=== PATIENT | female | born 1985 | race Caucasian/White ===

== ENCOUNTER 2020-07-02 05:55 | Outpatient (CLI) | payer MEDICAID | END 2020-07-02 05:56 | disposition critical access hospital (66) | LOC: EMS 05:55 | PROVIDERS: ATTEND Surgery | DX: R06.02 Shortness of breath (principal) | CPT/HCPCS: A0425; A0427 ==

== ENCOUNTER 2020-07-02 06:14 | Inpatient (IN) | payer MEDICAID ==
[2020-07-02 06:51] LABS: BASOPHILS # (AUTO) 0.1 10^3/uL (0.0-0.1); BASOPHILS % (AUTO) 0.5 %; EOSINOPHILS # (AUTO) 0.3 10^3/uL (0.0-0.7); EOSINOPHILS % (AUTO) 1.5 %; HGB - HEMOGLOBIN 13.3 g/dL (12.0-16.0); LYMPHOCYTES # (AUTO) 1.9 10^3/uL (1.5-3.5); LYMPHOCYTES % (AUTO) 8.6 %; MEAN CORPUSCULAR HEMOGLOBIN 27.1 pg (27.0-31.0); MEAN CORPUSCULAR HGB CONC 32.1 g/dL (32.0-36.0); MEAN CORPUSCULAR VOLUME 84.3 fL (81.0-99.0); MEAN PLATELET VOLUME 9.3 fL (7.9-10.8); MONOCYTES # (AUTO) 1.9 10^3/uL (0.0-1.0); MONOCYTES % (AUTO) 8.8 %; NEUTROPHILS # (AUTO) 17.1 10^3/uL (1.5-6.6); NEUTROPHILS % (AUTO) 79.9 %; PLT - PLATELET COUNT 461 10^3/uL (130-450); RED BLOOD COUNT 4.91 10^6/uL (4.20-5.40); RED CELL DISTRIBUTION WIDTH 12.6 % (12.0-15.0); WHITE BLOOD COUNT 21.4 x10^3/uL (4.8-10.8)
[2020-07-02 07:06] LABS: ALBUMIN 3.4 g/dL (3.2-5.5); ALBUMIN/GLOBULIN RATIO 0.8 (1.0-2.2); BILIRUBIN,TOTAL 0.6 mg/dL (0.2-1.0); CALCIUM 9.3 mg/dL (8.5-10.3); CREATININE 0.5 mg/dL (0.4-1.0); TOTAL PROTEIN 7.5 g/dL (6.7-8.2)
[2020-07-02 07:26] LABS: DIFFERENTIAL COMMENT MANUAL=AUTO DIFF; PLATELET MORPHOLOGY NORMAL APPEARANCE (NORMAL); RBC MORPHOLOGY (MULTIPLE) NORMAL APPEARANCE (NORMAL)
[2020-07-02 07:27] LABS: PLATELET ESTIMATE, MANUAL INCREASED (>450,000) (NORMAL)
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
[2020-07-02] MEDS ORDERED: ONDANSETRON 4 MG/2 ML VIAL IVP PRN (08:03)
[2020-07-02] MEDS ORDERED: ALBUTEROL NEB 2.5 MG/3 ML INH PRN (08:09)
[2020-07-02] MEDS ORDERED: LACTATED RINGERS 1,700.97 ML IV STA (08:09)
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
[2020-07-02] MEDS ORDERED: ALBUTEROL 1 PUFF INH PRN (08:18)
[2020-07-02] MEDS ORDERED: CEFEPIME 2 GM in SODIUM CHLORIDE 0.9% MINIBAG 100 ML IV STA (08:18)
[2020-07-02] MEDS ORDERED: levoFLOXacin 750 MG/150 ML 750 MG/150 ML BAG IV STA (08:19)
--- NOTE | 2020-07-02 09:06 | XRAY Report ---
PROCEDURE: Chest 1 View X-Ray INDICATIONS: Chest pain TECHNIQUE: One view of the chest was acquired. COMPARISON: None. FINDINGS: Surgical changes and devices: None. Lungs and pleura: No acute consolidation however there are scattered patchy upper and lower lobe ill- defined and groundglass opacities. Mediastinum: Mediastinal contours appear normal. Heart size is n ormal. Bones and chest wall: No suspicious bony lesions. Overlying soft tissues appear unremarkable. IMPRESSION: Ill-defined diffuse upper and lower lobe mild groundglass patchy opacities. No focal consolidation. C annot entirely exclude a low-grade atypical/viral pneumonia versus very early pulmonary edema. This c ould reflect mild atelectasis. Please correlate clinically. If there is persistent clinical diagnosti c uncertainty, recommend short interval follow-up chest radiographs after treatment for further asses sment. Reviewed by: Luis Escudero MD on 07/02/2020 9:05 AM PDT Approved by: Luis Escudero MD on 07/02/2020 9:05 AM PDT Station ID: [id number]
[2020-07-02] MEDS ORDERED: VANCOMYCIN INJ 1 GM, VANCOMYCIN INJ 500 MG in SODIUM CHLORIDE 0.9% 500 ML IV ONE (10:00)
[2020-07-02] MEDS: ENOXAPARIN 40 MG/0.4 ML SYRINGE SUBQ SCH ×2 (10:15→10:26)
[2020-07-02] MEDS: CEFEPIME 2 GM in SODIUM CHLORIDE 0.9% MINIBAG 100 ML IV SCH ×2 (10:15→18:50)
[2020-07-02] MEDS: SODIUM CHLORIDE FLUSH 0.9% 10 ML SYRINGE IVP SCH ×4 (10:16→21:54)
--- NOTE | 2020-07-02 10:54 | PHARMACY PROGRESS NOTE ---
- Therapy Status Vancomycin regimen day #: 1 Therapy status: Awaiting steady state Basis for treatment: Empirical Treatment indication: SEPSIS, PNEUMONIA, CYSTIC FIBROSIS Trough goal: 15-20 Concurrent antibiotics: CEFEPIME, LEVOFLOXACIN - ARISTEO Risk Risk level for Acute Kidney Injury: Moderate Acute Kidney Injury risk factors: Goal trough >15, Sepsis - Monitoring and Recommendation Clinical response to treatment: I&O Previous 24 hours 06/30/20 07/01/20 07/02/20 23:59 23:59 23:59 Intake Total 1630.97 Balance 1630.97 Lab Results 07/02/20 06:46 BUN 9 Creatinine 0.5 Estimated GFR (MDRD) 141 Monitoring plan: Daily serum creatinine Next trough due prior to maintenance dose #: 4 Next trough due (date/time): 07/03 @ 1800 Areas for additional monitoring: IV to PO when appropriate, Therapy de- escalation based on culture results Pharmacy recommendation: Continue current regime
--- NOTE | 2020-07-02 10:55 | PHARMACY PROGRESS NOTE ---
- Best Possible Medication History Admit Date and Time: 07/02/20 0803 Processed by: Nursing Medication History completed: Yes Patient Interview: Pt interview ONLY source As the person ultimately responsible for medication therapy, providers are able to order a medication from an existing home medication list in [facility] via the "Reconcile Routine" prior to Confirmation of that medication by support manager. Such practice is discouraged except when the physician, in their clinical judgment, deems that a medical need exists for a medication without regard to previous use.
[2020-07-02] MEDS ORDERED: IPRATROPIUM/ALBUTEROL 3 ML NEB INH SCH (11:00)
[2020-07-02] MEDS ORDERED: CEFEPIME 2 GM in SODIUM CHLORIDE 0.9% MINIBAG 100 ML IV SCH (15:00)
[2020-07-02] MEDS ORDERED: SIMETHICONE 40 MG/0.6 ML 30 ML BOTTLE PO PRN (18:40)
[2020-07-02] MEDS: SIMETHICONE CHEW 80 MG TABLET PO PRN (20:11)
[2020-07-02] MEDS: VANCOMYCIN INJ 1 GM in SODIUM CHLORIDE 0.9% 250 ML IV SCH (20:11)
[2020-07-02] MEDS ORDERED: SODIUM CHLORIDE INHALATION 3 ML NEB ONE (22:21)
[2020-07-02] MEDS ORDERED: LEVALBUTEROL 1.25 MG/3 ML NEB INH ONE (22:21)
[2020-07-03] MEDS: CEFEPIME 2 GM in SODIUM CHLORIDE 0.9% MINIBAG 100 ML IV SCH ×3 (02:01→18:15)
[2020-07-03] MEDS: SODIUM CHLORIDE FLUSH 0.9% 10 ML SYRINGE IVP PRN ×2 (02:02→02:58)
[2020-07-03] MEDS: ACETAMINOPHEN 325 MG TABLET PO PRN ×2 (02:07→09:03)
[2020-07-03] MEDS: VANCOMYCIN INJ 1 GM in SODIUM CHLORIDE 0.9% 250 ML IV SCH ×3 (02:58→19:28)
[2020-07-03 05:40] LABS: BASOPHILS % (AUTO) 0.3 %; EOSINOPHILS % (AUTO) 1.2 %; HGB - HEMOGLOBIN 12.2 g/dL (12.0-16.0); MEAN CORPUSCULAR HEMOGLOBIN 27.2 pg (27.0-31.0); MEAN CORPUSCULAR HGB CONC 31.6 g/dL (32.0-36.0); MEAN CORPUSCULAR VOLUME 86.2 fL (81.0-99.0); MEAN PLATELET VOLUME 9.3 fL (7.9-10.8); MONOCYTES % (AUTO) 6.6 %; NEUTROPHILS % (AUTO) 82.9 %; PLT - PLATELET COUNT 348 10^3/uL (130-450); RED BLOOD COUNT 4.48 10^6/uL (4.20-5.40); RED CELL DISTRIBUTION WIDTH 12.5 % (12.0-15.0); WHITE BLOOD COUNT 24.2 x10^3/uL (4.8-10.8)
[2020-07-03 05:43] LABS: ABNORMAL LYMPHS % (MANUAL) 0 %; BAND NEUTROPHILS % (MANUAL) 0 %
[2020-07-03 05:53] LABS: CALCIUM 8.5 mg/dL (8.5-10.3); CREATININE 0.5 mg/dL (0.4-1.0); MAGNESIUM 1.8 mg/dL (1.7-2.8); PHOSPHORUS 4.1 mg/dL (2.5-4.6)
[2020-07-03 05:57] LABS: DIFFERENTIAL COMMENT MANUAL DIFFERENTIAL; EOSINOPHILS # (MANUAL) 0.2 10^3/uL (0-0.7); LYMPHOCYTES # (MANUAL) 3.1 10^3/uL (1.5-3.5); LYMPHOCYTES % (MANUAL) 13 %; PLATELET ESTIMATE, MANUAL NORMAL (130-450,000) (NORMAL); PLATELET MORPHOLOGY NORMAL APPEARANCE (NORMAL); RBC MORPHOLOGY (MULTIPLE) NORMAL APPEARANCE (NORMAL)
--- NOTE | 2020-07-03 07:36 | PROVIDER PROGRESS NOTE ---
Subjective - Prog Note Date Prog Note Date: 07/03/20 - Subjective Subjective: She reports still feeling quite short of breath. She does not feel worse or better compared to yesterday. She ambulates to the bathroom and felt completely exhausted and drained and was quite dyspneic. Continues to have a productive cough of yellow thick sputum. Current Medications - Current Medications Current Medications: Active Medications Acetaminophen (Tylenol) 650 mg PO Q4HR PRN PRN Reason: Pain 1 to 4 Last Admin: 07/03/20 09:03 Dose: 650 mg Documented by: Albuterol (Mdi: Albuterol) 2 puffs INH Q4HR PRN PRN Reason: Dyspnea Enoxaparin Sodium (Lovenox) 40 mg SUBQ DAILY [facility] Last Admin: 07/03/20 09:02 Dose: Not Given Documented by: Levofloxacin (Levaquin 750 Mg/150 Ml) 750 mg in 150 mls @ 100 mls/hr IV Q24H [facility] Cefepime HCl 2 gm/ Sodium (Chloride) 100 mls @ 200 mls/hr IV Q8H [facility] Last Infusion: 07/03/20 10:30 Dose: Infused Documented by: Vancomycin HCl 1 gm/ Sodium (Chloride) 250 mls @ 167 mls/hr IV Q8H [facility] Last Infusion: 07/03/20 04:28 Dose: Infused Documented by: Ondansetron HCl (Zofran Inj) 4 mg IVP Q6HR PRN PRN Reason: Nausea / Vomiting Simethicone (Mylicon) 80 mg PO Q6HR PRN PRN Reason: GAS Last Admin: 07/02/20 20:11 Dose: 80 mg Documented by: Sodium Chloride (Normal Saline Flush 0.9%) 10 ml IVP PRN PRN PRN Reason: NEEDED PER PROVIDER ORDERS Last Admin: 07/03/20 02:58 Dose: 10 ml Documented by: Sodium Chloride (Normal Saline Flush 0.9%) 10 ml IVP 0100,0900,1700 [facility] Last Admin: 07/02/20 21:54 Dose: 10 ml Documented by: No Known Home Medications 07/02/20 Objective - Vital Signs/Intake & Output Reviewed Vital Signs: Yes Vital Signs: Vital Signs x48h Temp Pulse Resp BP Pulse Ox 07/03/20 03:00 36.4 C L 114 H 20 111/72 95 07/03/20 00:35 36.7 C 126 H 22 134/68 H 93 Intake & Output: Intake & Output 06/30/20 07/01/20 07/02/20 07/03/20 23:59 23:59 23:59 23:59 Intake Total 4240.97 350 Balance 4240.97 350 - Objective General Appearance: positive: No acute distress, Alert Eyes Bilateral: positive: Normal inspection, Conjunctivae nml ENT: positive: ENT inspection nml, Other (Nasal cannula in place.) Neck: positive: Nml inspection Respiratory: positive: No respiratory distress, Other (She does not appear to be in distress but she still is slightly tachypneic but this appears improved. Her lung sounds are actually quite relatively clear.). negative: Wheezes, Rales Cardiovascular: positive: Tachycardia. negative: Irregularly irregular, Bradycardia, Systolic murmur Abdomen: positive: Non-tender, No distention. negative: Tenderness, Guarding, Rebound Skin: positive: Warm, Dry Extremities: positive: Full ROM, No pedal edema Neurologic/Psychiatric: positive: Oriented x3, Motor nml. negative: Disoriented to person, Disoriented to place, Disoriented to time - Lab Results Fish Bones: 07/03/20 05:37 07/03/20 05:37 Other Labs: Lab Results x24hrs 07/03/20 07/03/20 07/02/20 Range/Units 05:37 05:37 11:28 WBC 24.2 H (4.8-10.8) x10^3/uL RBC 4.48 (4.20-5.40) 10^6/uL Hgb 12.2 (12.0-16.0) g/dL Hct 38.6 (37.0-47.0) % MCV 86.2 (81.0-99.0) fL MCH 27.2 (27.0-31.0) pg MCHC 31.6 L (32.0-36.0) g/dL RDW 12.5 (12.0-15.0) % Plt Count 348 (130-450) 10^3/uL MPV 9.3 (7.9-10.8) fL Neut # (Auto) Not Reportable Lymph # (Auto) Not Reportable Scurry # (Auto) Not Reportable Eos # (Auto) Not Reportable Baso # (Auto) Not Reportable Absolute Nucleated RBC Not Reportable Total Counted 100 Band Neuts % (Manual) 0 (0 - 10) % Abnorm Lymph % (Manual) 0 % Nucleated RBC % Not Reportable Neutrophils # (Manual) 19.8 H (1.5-6.6) 10^3/uL Lymphocytes # (Manual) 3.1 (1.5-3.5) 10^3/uL Monocytes # (Manual) 1.0 (0.0-1.0) 10^3/uL Eosinophils # (Manual) 0.2 (0-0.7) 10^3/uL Basophils # (Manual) 0.0 (0-0.1) 10^3/uL Differential Comment MANUAL DIFFERENTIAL WBC Morphology NORMAL APPEARANCE (NORMAL) Platelet Estimate NORMAL (130-450,000) (NORMAL) Platelet Morphology NORMAL APPEARANCE (NORMAL) RBC Morph Micro Appear NORMAL APPEARANCE (NORMAL) Sodium 140 (135-145) mmol/L Potassium 3.9 (3.5-5.0) mmol/L Chloride 104 (101-111) mmol/L Carbon Dioxide 27 (21-32) mmol/L Anion Gap 9.0 (6-13) BUN 8 (6-20) mg/dL Creatinine 0.5 (0.4-1.0) mg/dL Estimated GFR (MDRD) 141 (>89) Glucose 96 (70-100) mg/dL Lactic Acid (0.5-2.2) mmol/L Calcium 8.5 (8.5-10.3) mg/dL Phosphorus 4.1 (2.5-4.6) mg/dL Magnesium 1.8 (1.7-2.8) mg/dL Influenza A (Rapid) Negative (Negative) Influenza B (Rapid) Negative (Negative) 07/02/20 Range/Units 07:33 WBC (4.8-10.8) x10^3/uL RBC (4.20-5.40) 10^6/uL Hgb (12.0-16.0) g/dL Hct (37.0-47.0) % MCV (81.0-99.0) fL MCH (27.0-31.0) pg MCHC (32.0-36.0) g/dL RDW (12.0-15.0) % Plt Count (130-450) 10^3/uL MPV (7.9-10.8) fL Neut # (Auto) Lymph # (Auto) Scurry # (Auto) Eos # (Auto) Baso # (Auto) Absolute Nucleated RBC Total Counted Band Neuts % (Manual) (0 - 10) % Abnorm Lymph % (Manual) % Nucleated RBC % Neutrophils # (Manual) (1.5-6.6) 10^3/uL Lymphocytes # (Manual) (1.5-3.5) 10^3/uL Monocytes # (Manual) (0.0-1.0) 10^3/uL Eosinophils # (Manual) (0-0.7) 10^3/uL Basophils # (Manual) (0-0.1) 10^3/uL Differential Comment WBC Morphology (NORMAL) Platelet Estimate (NORMAL) Platelet Morphology (NORMAL) RBC Morph Micro Appear (NORMAL) Sodium (135-145) mmol/L Potassium (3.5-5.0) mmol/L Chloride (101-111) mmol/L Carbon Dioxide (21-32) mmol/L Anion Gap (6-13) BUN (6-20) mg/dL Creatinine (0.4-1.0) mg/dL Estimated GFR (MDRD) (>89) Glucose (70-100) mg/dL Lactic Acid 1.0 (0.5-2.2) mmol/L Calcium (8.5-10.3) mg/dL Phosphorus (2.5-4.6) mg/dL Magnesium (1.7-2.8) mg/dL Influenza A (Rapid) (Negative) Influenza B (Rapid) (Negative) ABX Reporting Has patient been on IV antibiotics over the past 48 hours?: Yes Sepsis Event Note (H) - Evaluation Current Stage of Sepsis: Sepsis Possible source of Sepsis: positive: Pulmonary - Sepsis Criteria Sepsis Criteria: Recorded Heart Rate greater than 90 bpm, Recorded Respiratory Rate greater than 20, Respiratory: Increasing oxygen requirements, WBC count greater than 12,000 or less than 4000 Assessment/Plan - Problem List (1) Sepsis Impression: This is secondary to community-acquired pneumonia. Her white count has increased today but she remains afebrile. She still remains tachycardic. Blood cultures have been negative to date. We will continue broad-spectrum antibiotics with Levaquin, cefepime, vancomycin given the pneumonia and history of cystic fibrosis. We will continue to monitor for other signs of infection. Continue to trend her white count and monitor for fevers. (2) Community acquired pneumonia Impression: Chest x-ray is concerning for bilateral infiltrates on admission. She does have an elevated white count and change in her sputum consistent with pneumonia. She remains hypoxic requiring 1 L of oxygen. Preliminary respiratory culture is growing many gram-positive cocci in clusters, moderate gram-positive cocci in pairs and chains and many gram-negative bacilli. And her history of cystic fibrosis and the fact that her white count increased today, we will keep her on vancomycin, cefepime, Levaquin. We will follow-up respiratory cultures. Continue to trend her white count. If she does not improve by tomorrow, we will likely need to discuss with pulmonology regarding further recommendations. Influenza is negative but COVID is still pending. We will obtain a CT angiogram today for further evaluation to rule out pulmonary embolism as well as to get a better visualization of the bilateral infiltrates. Qualifiers: Laterality: unspecified laterality Qualified Code(s): J18.9 - Pneumonia, unspecified organism (3) Cystic fibrosis Impression: She has a lifelong history of ICD code E84.9, cystic fibrosis. I am ordering home percussion vest (HFCWO) airway clearance device to help separate mucus from the airway cole in the lungs, help to get move up and out. Continue management of the pneumonia as mentioned above.
[2020-07-03] MEDS: ENOXAPARIN 40 MG/0.4 ML SYRINGE SUBQ SCH (09:02)
[2020-07-03] MEDS ORDERED: IOVERSOL 320 100 ML VIAL IVP ONE ×2 (09:41→13:10)
[2020-07-03] MEDS: levoFLOXacin 750 MG/150 ML 750 MG/150 ML BAG IV SCH (11:05)
--- NOTE | 2020-07-03 11:38 | CT Report ---
PROCEDURE: ANGIO CHEST W/WO INDICATIONS: Hypoxia, Dyspnea. Pneumonia. Cystic Fibrosis. CONTRAST: IV CONTRAST: Optiray 320 ml: 100 PO CONTRAST: *NO PO CONTRAST TECHNIQUE: After the administration of intravenous contrast, 2 mm thick sections acquired from the pulmonary api nova to the posterior costophrenic angles. 3-dimensional maximum intensity projection (MIP) coronal a nd sagittal reformats were then acquired through the thorax. For radiation dose reduction, the follow ing was used: automated exposure control, adjustment of mA and/or kV according to patient size. COMPARISON: FINDINGS: Image quality: Excellent. Pulmonary arteries: Pulmonary arteries are normal in size, and demonstrate no intraluminal filling d efects to suggest central pulmonary embolism. Lungs and pleura: Lungs are abnormal with peribronchial soft tissue prominence greater over the uppe r lung and no effusion.. No pneumothorax. Central and peripheral airways are patent. Mediastinum: Heart size is normal, without pericardial effusion. No significantly enlarged mediasti nal or hilar adenopathy but there is an increase of small nodes in the peribronchial central hilar re gions bilaterally, likely reactive. Thoracic aorta is normal in caliber and enhancement. Esophagus is normal in caliber, without hiatal hernia. Bones and chest wall: No suspicious bony lesions. Ribs and thoracic spine appear intact throughout. The thyroid is normal. No axillary or supraclavicular adenopathy. Abdomen: Visualized upper abdominal solid organs appear normal in the early arterial phase of enhanc ement. IMPRESSION: No pulmonary embolus is found. Relatively prominent peribronchial soft tissue thickening greater over the upper than the lower lungs, in an appearance consistent with underlying cystic fibrosis as was c linically stated. There is only a minimal degree of patchy alveolar infiltration at the lung bases, l ikely sequela of prior inflammatory events by appearance. No cavitary lung disease is found. A small degree of active pneumonitis may be present superimposed over the lower lung at this time. Reviewed by: Bruce Franco MD on 07/03/2020 11:37 AM PDT Approved by: Bruce Franco MD on 07/03/2020 11:37 AM PDT Station ID: [id number]
[2020-07-03 12:44] LABS: HCG UR QUAL NEGATIVE
[2020-07-03] MEDS: LACTOBACILLUS RHAMNOSUS GG CAPSULE PO SCH (13:01)
[2020-07-03] MEDS: MULTIVITAMIN W/MINERALS TABLET PO SCH (13:01)
[2020-07-03] MEDS: SODIUM CHLORIDE FLUSH 0.9% 10 ML SYRINGE IVP SCH (18:16)
[2020-07-03 18:32] LABS: VANCOMYCIN,TROUGH 16.3 ug/mL (10.0-20.0)
[2020-07-03] MEDS: ALBUTEROL NEB 2.5 MG/3 ML INH PRN (19:30)
[2020-07-04] MEDS: ACETAMINOPHEN 325 MG TABLET PO PRN (01:12)
[2020-07-04] MEDS: SIMETHICONE CHEW 80 MG TABLET PO PRN ×2 (01:12→09:01)
[2020-07-04] MEDS: SODIUM CHLORIDE FLUSH 0.9% 10 ML SYRINGE IVP SCH ×3 (01:13→19:17)
[2020-07-04] MEDS: CEFEPIME 2 GM in SODIUM CHLORIDE 0.9% MINIBAG 100 ML IV SCH ×2 (01:14→09:03)
[2020-07-04] MEDS: VANCOMYCIN INJ 1 GM in SODIUM CHLORIDE 0.9% 250 ML IV SCH ×3 (03:30→19:10)
[2020-07-04 05:11] LABS: BASOPHILS # (AUTO) 0.1 10^3/uL (0.0-0.1); BASOPHILS % (AUTO) 0.2 %; EOSINOPHILS # (AUTO) 0.7 10^3/uL (0.0-0.7); EOSINOPHILS % (AUTO) 2.6 %; HGB - HEMOGLOBIN 11.2 g/dL (12.0-16.0); LYMPHOCYTES # (AUTO) 2.2 10^3/uL (1.5-3.5); LYMPHOCYTES % (AUTO) 8.6 %; MEAN CORPUSCULAR HEMOGLOBIN 26.6 pg (27.0-31.0); MEAN CORPUSCULAR HGB CONC 30.9 g/dL (32.0-36.0); MEAN PLATELET VOLUME 9.5 fL (7.9-10.8); MONOCYTES % (AUTO) 7.8 %; NEUTROPHILS # (AUTO) 20.5 10^3/uL (1.5-6.6); NEUTROPHILS % (AUTO) 79.8 %; PLT - PLATELET COUNT 364 10^3/uL (130-450); RED BLOOD COUNT 4.21 10^6/uL (4.20-5.40); RED CELL DISTRIBUTION WIDTH 12.6 % (12.0-15.0); WHITE BLOOD COUNT 25.7 x10^3/uL (4.8-10.8)
[2020-07-04 05:28] LABS: CALCIUM 8.6 mg/dL (8.5-10.3); CREATININE 0.5 mg/dL (0.4-1.0); MAGNESIUM 2.1 mg/dL (1.7-2.8); PHOSPHORUS 4.1 mg/dL (2.5-4.6)
[2020-07-04 05:39] LABS: PLATELET ESTIMATE, MANUAL NORMAL (130-450,000) (NORMAL); PLATELET MORPHOLOGY NORMAL APPEARANCE (NORMAL); RBC MORPHOLOGY (MULTIPLE) NORMAL APPEARANCE (NORMAL)
[2020-07-04] MEDS ORDERED: PHENOL THROAT SPRAY 177 ML MM PRN (08:59)
[2020-07-04] MEDS: ENOXAPARIN 40 MG/0.4 ML SYRINGE SUBQ SCH (09:00)
[2020-07-04] MEDS: LACTOBACILLUS RHAMNOSUS GG CAPSULE PO SCH (09:01)
[2020-07-04] MEDS: MULTIVITAMIN W/MINERALS TABLET PO SCH (09:01)
[2020-07-04] MEDS: levoFLOXacin 750 MG/150 ML 750 MG/150 ML BAG IV SCH (10:13)
[2020-07-04] MEDS: BENZOCAINE/MENTHOL LOZENGE MM PRN ×2 (10:54→15:05)
--- NOTE | 2020-07-04 12:40 | PHARMACY PROGRESS NOTE ---
- Therapy Status Vancomycin regimen day #: 3 Therapy status: Trough therapeutic Basis for treatment: Empirical (MSSA VS MRSA) Treatment indication: PNEUMONIA ON CYSTIC FIBROSIS Trough goal: 15-20 Concurrent antibiotics: MEROPENEM 2G Q8H - ARISTEO Risk Risk level for Acute Kidney Injury: Moderate Acute Kidney Injury risk factors: Goal trough >15, Sepsis - Monitoring and Recommendation Clinical response to treatment: I&O Previous 24 hours 07/02/20 07/03/20 07/04/20 23:59 23:59 23:59 Intake Total 4240.97 2330 1620 Balance 4240.97 2330 1620 Lab Results 07/04/20 07/03/20 07/02/20 04:45 05:37 06:46 BUN 7 8 9 Creatinine 0.5 0.5 0.5 Estimated GFR (MDRD) 141 141 141 Vancomycin Monitoring 07/03/20 18:18 Vancomycin Trough 16.3 Cultures 07/02/20 08:55 Sputum Respiratory Culture - Preliminary Pseudomonas Aeruginosa Staphylococcus Aureus 07/02/20 09:04 Blood - Left Hand Blood Culture - Preliminary NO GROWTH AFTER 2 DAYS 07/02/20 07:33 Blood Blood Culture - Preliminary NO GROWTH AFTER 2 DAYS Monitoring plan: Daily serum creatinine Next trough due prior to maintenance dose #: 0 (DRAW TROUGH IN 5 TO 7 DAYS BASED ON PT'S CLINICAL PICTURE) Areas for additional monitoring: IV to PO when appropriate, Therapy de- escalation based on culture results Pharmacy recommendation: Continue current regime
[2020-07-04] MEDS: SODIUM CHLORIDE FLUSH 0.9% 10 ML SYRINGE IVP PRN (13:14)
[2020-07-04] MEDS: MEROPENEM 2 GM in SODIUM CHLORIDE 0.9% 100ML 100 ML IV SCH ×2 (13:29→21:26)
--- NOTE | 2020-07-04 13:33 | PROVIDER PROGRESS NOTE ---
Assessment/Plan - Problem List (1) Sepsis Assessment/Plan: She remains septic with abnormal vital signs (oxygen desaturation) and elevated WBC and infection present. The WBC is still rising. The sputum culture is growing Pseudomonas (with sensitivities available today) and also growing Staph (with sensitivities pending). Will tailor the antibiotics: will change Cefepime and Levaquin to Imipenam (will use Merepenam in its place, until discharge) for the Pseudomonas. Will reach out to [facility] at , which is where she used to be seen for CF, regarding any other recommendations. (2) Community acquired pneumonia Qualifiers: Laterality: unspecified laterality Qualified Code(s): J18.9 - Pneumonia, unspecified organism Assessment/Plan: Pseudomonas and Staph growing in sputum culture. WBC is still climbing, and no systemic steroids have been used. The CT chest showed minimal infiltrate, but she has alot of sputum and needing supplemental O2. She has a hoarse voice from coughing, getting thrioat spray and lozenges. Will add Robitussin DM. (3) Cystic fibrosis Assessment/Plan: Albuterol ordered. Will add Robitussin DM. Will reach out to [facility] at , which is where she used to be seen for CF, regarding any other recommendations. - Current Meds Current Meds: Current Medications Generic Name Dose Route Start Last Admin Trade Name Freq PRN Reason Stop Dose Admin Acetaminophen 650 mg 07/02/20 08:03 07/04/20 01:12 Tylenol PO 650 mg Q4HR PRN Administration Pain 1 to 4 Enoxaparin Sodium 40 mg 07/02/20 09:00 07/04/20 09:00 Lovenox SUBQ Not Given DAILY [facility] Vancomycin HCl 1 gm/ Sodium 250 mls @ 167 mls/hr 07/02/20 19:00 07/04/20 10:54 Chloride IV Infused Q8H [facility] Infusion Lactobacillus Rhamnosus 1 cap 07/03/20 12:00 07/04/20 09:01 Culturelle PO 1 cap DAILY [facility] Administration Multivitamins/Minerals 1 tab 07/03/20 12:00 07/04/20 09:01 Theragran M PO 1 tab DAILYWM [facility] Administration Phenol/Menthol 2 sprays 07/04/20 08:59 07/04/20 10:54 Chloraseptic MM 2 sprays Q2HR PRN Administration Throat Pain Simethicone 80 mg 07/02/20 20:00 07/04/20 09:01 Mylicon PO 80 mg Q6HR PRN Administration GAS Sodium Chloride 10 ml 07/02/20 08:03 07/03/20 02:58 Normal Saline Flush 0.9% IVP 10 ml PRN PRN Administration NEEDED PER PROVIDER ORDERS Sodium Chloride 10 ml 07/02/20 09:00 07/04/20 09:10 Normal Saline Flush 0.9% IVP 10 ml 0100,0900,1700 [facility] Administration Throat Lozenges 1 lozenge 07/04/20 08:59 07/04/20 10:54 Cepacol MM 1 lozenge Q2HR PRN Administration Throat pain - Lab Result Fish Bone Diagrams: 07/04/20 04:45 07/04/20 04:45 - Additional Planning My Orders: My Active Orders 07/04/20 13:00 Meropenem [Merrem] 2 gm Sodium Chloride 0.9% 100Ml [Normal Saline 0.9% 100Ml] 100 ml IV Q8H Subjective - Subjective Patient Reports: Feeling Better (She reports still feeling short of breath, but finally better compared to yesterday. She ambulates to the bathroom and felt completely exhausted and drained and was quite dyspneic, today she has a bedside commode. Still has a productive cough of yellow thick sputum.) Objective Vital Signs: Vital Signs - 24 hr 07/03/20 07/03/20 07/03/20 15:45 19:30 19:45 Temperature 36.7 C Heart Rate 126 H Heart Rate [ 112 H Monitoring electrodes] Respiratory 24 30 H Rate Blood Pressure 117/72 [Right Brachial artery] O2 Saturation 95 95 07/03/20 07/04/20 07/04/20 20:44 00:02 05:29 Temperature 37.2 C 37.1 C 36.7 C Heart Rate Heart Rate [ 138 H 122 H 97 Monitoring electrodes] Respiratory 20 20 20 Rate Blood Pressure 107/65 117/71 113/74 [Right Brachial artery] O2 Saturation 94 95 97 07/04/20 07/04/20 08:00 12:00 Temperature 36.7 C 36.9 C Heart Rate Heart Rate [ 113 H 122 H Monitoring electrodes] Respiratory 20 22 Rate Blood Pressure 97/66 118/60 [Right Brachial artery] O2 Saturation 94 95 Oxygen O2 Source Nasal cannula Oxygen Flow Rate 2 I&O (Last 24 Hrs): Intake and Output Totals x24h 07/02/20 07/03/20 07/04/20 23:59 23:59 23:59 Intake Total 4240.97 2330 1620 Balance 4240.97 2330 1620 General: Alert, Oriented x3 HEENT: Mucous membr. moist/pink, Other (Voice is hoarse and nasal) Neck: Supple Neuro: Alert, Non Focal Cardiovascular: Regular rate, No murmurs Respiratory: No respiratory distress, Rhonchi (upper lung akins, bilaterally) Abdomen: Soft Extremities: No edema - Results Results: Laboratory Results WBC 25.7 x10^3/uL (4.8-10.8) H 07/04/20 04:45 RBC 4.21 10^6/uL (4.20-5.40) 07/04/20 04:45 Hgb 11.2 g/dL (12.0-16.0) L 07/04/20 04:45 Hct 36.2 % (37.0-47.0) L 07/04/20 04:45 MCV 86.0 fL (81.0-99.0) 07/04/20 04:45 MCH 26.6 pg (27.0-31.0) L 07/04/20 04:45 MCHC 30.9 g/dL (32.0-36.0) L 07/04/20 04:45 RDW 12.6 % (12.0-15.0) 07/04/20 04:45 Plt Count 364 10^3/uL (130-450) 07/04/20 04:45 MPV 9.5 fL (7.9-10.8) 07/04/20 04:45 Neut # (Auto) 20.5 10^3/uL (1.5-6.6) H 07/04/20 04:45 Lymph # (Auto) 2.2 10^3/uL (1.5-3.5) 07/04/20 04:45 Waldo # (Auto) 2.0 10^3/uL (0.0-1.0) H 07/04/20 04:45 Eos # (Auto) 0.7 10^3/uL (0.0-0.7) 07/04/20 04:45 Baso # (Auto) 0.1 10^3/uL (0.0-0.1) 07/04/20 04:45 Absolute Nucleated RBC 0.00 x10^3/uL 07/04/20 04:45 Total Counted 100 07/03/20 05:37 Band Neuts % (Manual) 0 % (0-10) 07/03/20 05:37 Abnorm Lymph % (Manual) 0 % 07/03/20 05:37 Nucleated RBC % 0.0 /100WBC 07/04/20 04:45 Neutrophils # (Manual) 19.8 10^3/uL (1.5-6.6) H 07/03/20 05:37 Lymphocytes # (Manual) 3.1 10^3/uL (1.5-3.5) 07/03/20 05:37 Monocytes # (Manual) 1.0 10^3/uL (0.0-1.0) 07/03/20 05:37 Eosinophils # (Manual) 0.2 10^3/uL (0-0.7) 07/03/20 05:37 Basophils # (Manual) 0.0 10^3/uL (0-0.1) 07/03/20 05:37 Differential Comment MANUAL DIFFERENTIAL 07/03/20 05:37 Manual Slide Review Indicated 07/04/20 04:45 WBC Morphology NORMAL APPEARANCE (NORMAL) 07/03/20 05:37 Platelet Estimate NORMAL (130-450,000) (NORMAL) 07/04/20 04:45 Platelet Morphology NORMAL APPEARANCE (NORMAL) 07/04/20 04:45 RBC Morph Micro Appear NORMAL APPEARANCE (NORMAL) 07/04/20 04:45 Sodium 140 mmol/L (135-145) 07/04/20 04:45 Potassium 4.0 mmol/L (3.5-5.0) 07/04/20 04:45 Chloride 103 mmol/L (101-111) 07/04/20 04:45 Carbon Dioxide 28 mmol/L (21-32) 07/04/20 04:45 Anion Gap 9.0 (6-13) 07/04/20 04:45 BUN 7 mg/dL (6-20) 07/04/20 04:45 Creatinine 0.5 mg/dL (0.4-1.0) 07/04/20 04:45 Estimated GFR (MDRD) 141 (>89) 07/04/20 04:45 Glucose 109 mg/dL (70-100) H 07/04/20 04:45 Lactic Acid 1.0 mmol/L (0.5-2.2) 07/02/20 07:33 Calcium 8.6 mg/dL (8.5-10.3) 07/04/20 04:45 Phosphorus 4.1 mg/dL (2.5-4.6) 07/04/20 04:45 Magnesium 2.1 mg/dL (1.7-2.8) 07/04/20 04:45 Total Bilirubin 0.6 mg/dL (0.2-1.0) 07/02/20 06:46 AST 15 IU/L (10-42) 07/02/20 06:46 ALT 21 IU/L (10-60) 07/02/20 06:46 Alkaline Phosphatase 99 IU/L (42-121) 07/02/20 06:46 Total Protein 7.5 g/dL (6.7-8.2) 07/02/20 06:46 Albumin 3.4 g/dL (3.2-5.5) 07/02/20 06:46 Globulin 4.1 g/dL (2.1-4.2) 07/02/20 06:46 Albumin/Globulin Ratio 0.8 (1.0-2.2) L 07/02/20 06:46 Lipase 15 U/L (22-51) L 07/02/20 06:46 Ur Specific [place] 1.010 (1.002-1.030) 07/03/20 10:00 Urine HCG, Qual NEGATIVE 07/03/20 10:00 Last Dose Date 07/03/20 07/03/20 18:18 Last Dose Time 1258 07/03/20 18:18 Vancomycin Trough 16.3 ug/mL (10.0-20.0) 07/03/20 18:18 Coronavirus (PCR) NEGATIVE 07/02/20 09:05 Influenza A (Rapid) Negative (Negative) 07/02/20 11:28 Influenza B (Rapid) Negative (Negative) 07/02/20 11:28 Sepsis Event Note (H) - Evaluation Current Stage of Sepsis: Sepsis Possible source of Sepsis: positive: Pulmonary - Sepsis Criteria Sepsis Criteria: Recorded Heart Rate greater than 90 bpm, Recorded Respiratory Rate greater than 20, Respiratory: Increasing oxygen requirements, WBC count greater than 12,000 or less than 4000
[2020-07-04] MEDS ORDERED: guaiFENesin/DEXTROMETHORPHAN 10 ML UDC PO PRN (13:34)
[2020-07-04] MEDS: ALBUTEROL NEB 2.5 MG/3 ML INH PRN ×2 (14:37→19:50)
[2020-07-05] MEDS: VANCOMYCIN INJ 1 GM in SODIUM CHLORIDE 0.9% 250 ML IV SCH ×3 (02:34→19:45)
[2020-07-05] MEDS: BENZOCAINE/MENTHOL LOZENGE MM PRN ×2 (02:42→11:49)
[2020-07-05] MEDS: ALBUTEROL NEB 2.5 MG/3 ML INH PRN ×5 (02:42→22:41)
[2020-07-05] MEDS: ACETAMINOPHEN 325 MG TABLET PO PRN ×2 (02:50→21:22)
[2020-07-05] MEDS: SODIUM CHLORIDE FLUSH 0.9% 10 ML SYRINGE IVP SCH ×3 (02:54→11:50)
[2020-07-05] MEDS: MEROPENEM 2 GM in SODIUM CHLORIDE 0.9% 100ML 100 ML IV SCH ×3 (04:26→21:24)
[2020-07-05 05:38] LABS: BASOPHILS # (AUTO) 0.1 10^3/uL (0.0-0.1); BASOPHILS % (AUTO) 0.6 %; EOSINOPHILS # (AUTO) 0.6 10^3/uL (0.0-0.7); EOSINOPHILS % (AUTO) 2.8 %; HGB - HEMOGLOBIN 10.7 g/dL (12.0-16.0); LYMPHOCYTES # (AUTO) 1.8 10^3/uL (1.5-3.5); LYMPHOCYTES % (AUTO) 8.3 %; MEAN CORPUSCULAR HEMOGLOBIN 26.3 pg (27.0-31.0); MEAN CORPUSCULAR HGB CONC 30.5 g/dL (32.0-36.0); MEAN CORPUSCULAR VOLUME 86.2 fL (81.0-99.0); MEAN PLATELET VOLUME 9.6 fL (7.9-10.8); MONOCYTES # (AUTO) 1.7 10^3/uL (0.0-1.0); MONOCYTES % (AUTO) 7.8 %; NEUTROPHILS # (AUTO) 17.3 10^3/uL (1.5-6.6); NEUTROPHILS % (AUTO) 79.5 %; PLT - PLATELET COUNT 357 10^3/uL (130-450); RED BLOOD COUNT 4.07 10^6/uL (4.20-5.40); RED CELL DISTRIBUTION WIDTH 12.6 % (12.0-15.0); WHITE BLOOD COUNT 21.8 x10^3/uL (4.8-10.8)
[2020-07-05 05:50] LABS: CALCIUM 8.2 mg/dL (8.5-10.3); CREATININE 0.5 mg/dL (0.4-1.0); MAGNESIUM 1.9 mg/dL (1.7-2.8); PHOSPHORUS 3.2 mg/dL (2.5-4.6)
[2020-07-05 06:13] LABS: DIFFERENTIAL COMMENT MANUAL=AUTO DIFF; PLATELET ESTIMATE, MANUAL NORMAL (130-450,000) (NORMAL); RBC MORPHOLOGY (MULTIPLE) NORMAL APPEARANCE (NORMAL)
[2020-07-05] MEDS: LACTOBACILLUS RHAMNOSUS GG CAPSULE PO SCH (08:52)
[2020-07-05] MEDS: MULTIVITAMIN W/MINERALS TABLET PO SCH (08:52)
[2020-07-05] MEDS: ENOXAPARIN 40 MG/0.4 ML SYRINGE SUBQ SCH (10:01)
[2020-07-05] MEDS: LIPASE/PROTEASE/AMYLASE CAPSULE PO SCH ×2 (12:14→17:05)
--- NOTE | 2020-07-05 12:54 | PROVIDER PROGRESS NOTE ---
Assessment/Plan - Problem List (1) Sepsis Assessment/Plan: She is still desaturating, producing sputum. White blood count is still elevated greater than 20 but has decreased from 26 yesterday to 21 today. Blood cultures are negative to date. Sputum cx positive, 2 organisms Continue management of the underlying infection and supportive care with IV hydration. (2) Community acquired pneumonia Qualifiers: Laterality: unspecified laterality Qualified Code(s): J18.9 - Pneumonia, unspecified organism Assessment/Plan: Antibiotics were adjusted yesterday based on identification of bacteria in her sputum. Continue with help for expectoration. She has pleuritic right-sided chest pain and hoarseness from severe coughing, Robitussin-DM as needed was added. (3) Pseudomonas respiratory infection Assessment/Plan: Empiric antibiotics were tailored to Meropenem IV yesterday. (4) Staph aureus infection Assessment/Plan: Continue with empiric vancomycin treatment. Awaiting sensitivities for this staph species to tailor antibx. (5) Cystic fibrosis Assessment/Plan: Creon with meals and with snacks has been ordered to start today and should be continued as an outpatient. I plan on reaching out to [facility] and discussed case with a Cutter Grinder Operator, for any other recommendations for management. - Current Meds Current Meds: Current Medications Generic Name Dose Route Start Last Admin Trade Name Freq PRN Reason Stop Dose Admin Acetaminophen 650 mg 07/02/20 08:03 07/05/20 02:50 Tylenol PO 650 mg Q4HR PRN Administration Pain 1 to 4 Albuterol 2.5 mg 07/04/20 00:10 07/05/20 11:10 INH 2.5 mg RTQ4H PRN Administration Wheezing Lipase/Protease/Amylase 6 cap 07/05/20 12:00 07/05/20 12:[address] 5,000/17,000/27,000 Jail PO 6 cap TIDWM LILLIE Administration Enoxaparin Sodium 40 mg 07/02/20 09:00 07/05/20 10:01 Lovenox SUBQ Not Given DAILY LILLIE Vancomycin HCl 1 gm/ Sodium 250 mls @ 167 mls/hr 07/02/20 19:00 07/05/20 11:49 Chloride IV 167 mls/hr Q8H LILLIE Administration Meropenem 2 gm/ Sodium 100 mls @ 200 mls/hr 07/04/20 13:00 07/05/20 05:09 Chloride IV Infused Q8H LILLIE Infusion Lactobacillus Rhamnosus 1 cap 07/03/20 12:00 07/05/20 08:52 Culturelle PO 1 cap DAILY LILLIE Administration Multivitamins/Minerals 1 tab 07/03/20 12:00 07/05/20 08:52 Theragran M PO 1 tab DAILYWM LILLIE Administration Phenol/Menthol 2 sprays 07/04/20 08:59 07/04/20 10:54 Chloraseptic MM 2 sprays Q2HR PRN Administration Throat Pain Simethicone 80 mg 07/02/20 20:00 07/04/20 09:01 Mylicon PO 80 mg Q6HR PRN Administration GAS Sodium Chloride 10 ml 07/02/20 08:03 07/04/20 13:14 Normal Saline Flush 0.9% IVP 10 ml PRN PRN Administration NEEDED PER PROVIDER ORDERS Sodium Chloride 10 ml 07/02/20 09:00 07/05/20 11:50 Normal Saline Flush 0.9% IVP 10 ml [id number] LILLIE Administration Throat Lozenges 1 lozenge 07/04/20 08:59 07/05/20 11:49 Cepacol MM 1 lozenge Q2HR PRN Administration Throat pain - Lab Result Fish Bone Diagrams: 07/05/20 05:00 07/05/20 05:00 - Additional Planning My Orders: My Active Orders 07/04/20 13:00 Meropenem [Merrem] 2 gm Sodium Chloride 0.9% 100Ml [Normal Saline 0.9% 100Ml] 100 ml IV Q8H 07/04/20 13:34 guaiFENesin/DEXTROMETHORPHAN [Robitussin Dm] 10 ml PO Q6HR PRN 07/05/20 12:00 Lipase/Protease/Amylase [Pancrelipase Dr 5,000/17,000/27,000 Jail] 6 cap PO TIDWM Subjective - Subjective Patient Reports: Feeling Better, Other (Still has hoarseness of voice and nasally, Breath today, cough is slightly better) Objective Vital Signs: Vital Signs - 24 hr 07/04/20 07/04/20 07/04/20 14:37 15:52 19:46 Temperature 37.0 C Heart Rate 103 H 118 H Heart Rate [ Brachial] Heart Rate [ 128 H Monitoring electrodes] Respiratory 18 16 20 Rate Blood Pressure [Left Brachial artery] Blood Pressure 106/62 [Right Brachial artery] O2 Saturation 95 07/04/20 07/04/20 07/05/20 20:41 23:43 04:29 Temperature 36.8 C 37.2 C 36.8 C Heart Rate Heart Rate [ 111 H 107 H Brachial] Heart Rate [ 130 H Monitoring electrodes] Respiratory 18 16 16 Rate Blood Pressure 104/58 L [Left Brachial artery] Blood Pressure 113/58 L 116/70 [Right Brachial artery] O2 Saturation 93 97 96 07/05/20 07/05/20 07/05/20 07:38 08:11 08:34 Temperature 36.7 C 36.6 C Heart Rate 115 H Heart Rate [ 115 H 118 H Brachial] Heart Rate [ Monitoring electrodes] Respiratory 24 16 16 Rate Blood Pressure 117/62 [Left Brachial artery] Blood Pressure 108/66 [Right Brachial artery] O2 Saturation 94 95 07/05/20 07/05/20 11:10 12:41 Temperature 36.8 C Heart Rate 22 L Heart Rate [ 111 H Brachial] Heart Rate [ Monitoring electrodes] Respiratory 111 H 20 Rate Blood Pressure 111/59 L [Left Brachial artery] Blood Pressure [Right Brachial artery] O2 Saturation 96 Oxygen O2 Source Nasal cannula Oxygen Flow Rate 2 I&O (Last 24 Hrs): Intake and Output Totals x24h 07/03/20 07/04/20 07/05/20 23:59 23:59 23:59 Intake Total 2330 3000 800 Output Total 1200 Balance 2330 1800 800 General: Alert, Oriented x3, Other (Is less lethargic than yesterday) HEENT: Mucous membr. moist/pink Neck: Supple Neuro: Alert Respiratory: No respiratory distress (But she is on O2 per nasal cannula), Rhonchi (Of upper lung akins) Abdomen: Soft Extremities: No edema - Results Results: Laboratory Results WBC 21.8 x10^3/uL (4.8-10.8) H 07/05/20 05:00 RBC 4.07 10^6/uL (4.20-5.40) L 07/05/20 05:00 Hgb 10.7 g/dL (12.0-16.0) L 07/05/20 05:00 Hct 35.1 % (37.0-47.0) L 07/05/20 05:00 MCV 86.2 fL (81.0-99.0) 07/05/20 05:00 MCH 26.3 pg (27.0-31.0) L 07/05/20 05:00 MCHC 30.5 g/dL (32.0-36.0) L 07/05/20 05:00 RDW 12.6 % (12.0-15.0) 07/05/20 05:00 Plt Count 357 10^3/uL (130-450) 07/05/20 05:00 MPV 9.6 fL (7.9-10.8) 07/05/20 05:00 Neut # (Auto) 17.3 10^3/uL (1.5-6.6) H 07/05/20 05:00 Lymph # (Auto) 1.8 10^3/uL (1.5-3.5) 07/05/20 05:00 [place] # (Auto) 1.7 10^3/uL (0.0-1.0) H 07/05/20 05:00 Eos # (Auto) 0.6 10^3/uL (0.0-0.7) 07/05/20 05:00 Baso # (Auto) 0.1 10^3/uL (0.0-0.1) 07/05/20 05:00 Absolute Nucleated RBC 0.00 x10^3/uL 07/05/20 05:00 Total Counted 100 07/03/20 05:37 Band Neuts % (Manual) Not Reportable 07/05/20 05:00 Abnorm Lymph % (Manual) Not Reportable 07/05/20 05:00 Nucleated RBC % 0.0 /100WBC 07/05/20 05:00 Neutrophils # (Manual) Not Reportable 07/05/20 05:00 Lymphocytes # (Manual) Not Reportable 07/05/20 05:00 Monocytes # (Manual) Not Reportable 07/05/20 05:00 Eosinophils # (Manual) Not Reportable 07/05/20 05:00 Basophils # (Manual) Not Reportable 07/05/20 05:00 Differential Comment MANUAL=AUTO DIFF 07/05/20 05:00 Manual Slide Review Indicated 07/04/20 04:45 WBC Morphology NORMAL APPEARANCE (NORMAL) 07/03/20 05:37 Platelet Estimate NORMAL (130-450,000) (NORMAL) 07/05/20 05:00 Platelet Morphology NORMAL APPEARANCE (NORMAL) 07/04/20 04:45 RBC Morph Micro Appear NORMAL APPEARANCE (NORMAL) 07/05/20 05:00 Sodium 138 mmol/L (135-145) 07/05/20 05:00 Potassium 3.5 mmol/L (3.5-5.0) 07/05/20 05:00 Chloride 102 mmol/L (101-111) 07/05/20 05:00 Carbon Dioxide 30 mmol/L (21-32) 07/05/20 05:00 Anion Gap 6.0 (6-13) 07/05/20 05:00 BUN 6 mg/dL (6-20) 07/05/20 05:00 Creatinine 0.5 mg/dL (0.4-1.0) 07/05/20 05:00 Estimated GFR (MDRD) 141 (>89) 07/05/20 05:00 Glucose 130 mg/dL (70-100) H 07/05/20 05:00 Lactic Acid 1.0 mmol/L (0.5-2.2) 07/02/20 07:33 Calcium 8.2 mg/dL (8.5-10.3) L 07/05/20 05:00 Phosphorus 3.2 mg/dL (2.5-4.6) 07/05/20 05:00 Magnesium 1.9 mg/dL (1.7-2.8) 07/05/20 05:00 Total Bilirubin 0.6 mg/dL (0.2-1.0) 07/02/20 06:46 AST 15 IU/L (10-42) 07/02/20 06:46 ALT 21 IU/L (10-60) 07/02/20 06:46 Alkaline Phosphatase 99 IU/L (42-121) 07/02/20 06:46 Total Protein 7.5 g/dL (6.7-8.2) 07/02/20 06:46 Albumin 3.4 g/dL (3.2-5.5) 07/02/20 06:46 Globulin 4.1 g/dL (2.1-4.2) 07/02/20 06:46 Albumin/Globulin Ratio 0.8 (1.0-2.2) L 07/02/20 06:46 Lipase 15 U/L (22-51) L 07/02/20 06:46 Ur Specific [place] 1.010 (1.002-1.030) 07/03/20 10:00 Urine HCG, Qual NEGATIVE 07/03/20 10:00 Last Dose Date 07/03/20 07/03/20 18:18 Last Dose Time 1258 07/03/20 18:18 Vancomycin Trough 16.3 ug/mL (10.0-20.0) 07/03/20 18:18 Coronavirus (PCR) NEGATIVE 07/02/20 09:05 Influenza A (Rapid) Negative (Negative) 07/02/20 11:28 Influenza B (Rapid) Negative (Negative) 07/02/20 11:28 Sepsis Event Note (H) - Evaluation Current Stage of Sepsis: Sepsis Possible source of Sepsis: positive: Pulmonary - Sepsis Criteria Sepsis Criteria: Recorded Heart Rate greater than 90 bpm, Recorded Respiratory Rate greater than 20, Respiratory: Increasing oxygen requirements, WBC count greater than 12,000 or less than 4000
[2020-07-05] MEDS ORDERED: VANCOMYCIN 1 GM VIAL ONE (18:29)
[2020-07-06] MEDS ORDERED: SODIUM CHLORIDE 0.9% 500 ML IV PRN (00:39)
[2020-07-06] MEDS: SODIUM CHLORIDE FLUSH 0.9% 10 ML SYRINGE IVP SCH ×4 (00:40→23:40)
[2020-07-06] MEDS: VANCOMYCIN INJ 1 GM in SODIUM CHLORIDE 0.9% 250 ML IV SCH (02:24)
[2020-07-06] MEDS: ALBUTEROL NEB 2.5 MG/3 ML INH PRN ×2 (04:25→12:27)
[2020-07-06] MEDS: MEROPENEM 2 GM in SODIUM CHLORIDE 0.9% 100ML 100 ML IV SCH (04:26)
[2020-07-06] MEDS: BENZOCAINE/MENTHOL LOZENGE MM PRN ×2 (04:39→14:25)
[2020-07-06 05:41] LABS: BASOPHILS # (AUTO) 0.1 10^3/uL (0.0-0.1); BASOPHILS % (AUTO) 0.6 %; EOSINOPHILS # (AUTO) 0.8 10^3/uL (0.0-0.7); EOSINOPHILS % (AUTO) 5.2 %; HGB - HEMOGLOBIN 11.2 g/dL (12.0-16.0); LYMPHOCYTES # (AUTO) 1.9 10^3/uL (1.5-3.5); LYMPHOCYTES % (AUTO) 11.9 %; MEAN CORPUSCULAR HEMOGLOBIN 27.3 pg (27.0-31.0); MEAN CORPUSCULAR HGB CONC 30.9 g/dL (32.0-36.0); MEAN CORPUSCULAR VOLUME 88.3 fL (81.0-99.0); MEAN PLATELET VOLUME 9.5 fL (7.9-10.8); MONOCYTES # (AUTO) 1.2 10^3/uL (0.0-1.0); MONOCYTES % (AUTO) 7.7 %; NEUTROPHILS # (AUTO) 11.7 10^3/uL (1.5-6.6); NEUTROPHILS % (AUTO) 73.7 %; PLT - PLATELET COUNT 356 10^3/uL (130-450); RED BLOOD COUNT 4.11 10^6/uL (4.20-5.40); RED CELL DISTRIBUTION WIDTH 12.6 % (12.0-15.0); WHITE BLOOD COUNT 15.9 x10^3/uL (4.8-10.8)
[2020-07-06 05:54] LABS: CALCIUM 8.2 mg/dL (8.5-10.3); CREATININE 0.3 mg/dL (0.4-1.0); PHOSPHORUS 1.9 mg/dL (2.5-4.6)
[2020-07-06] MEDS: ACETAMINOPHEN 325 MG TABLET PO PRN ×2 (07:50→23:35)
[2020-07-06 10:41] LABS: VANCOMYCIN,TROUGH 15.2 ug/mL (10.0-20.0)
[2020-07-06] MEDS: MULTIVITAMIN W/MINERALS TABLET PO SCH (10:44)
[2020-07-06] MEDS: LACTOBACILLUS RHAMNOSUS GG CAPSULE PO SCH (10:44)
[2020-07-06] MEDS: ENOXAPARIN 40 MG/0.4 ML SYRINGE SUBQ SCH (12:06)
[2020-07-06] MEDS: levoFLOXacin 250 MG TABLET PO SCH (12:18)
[2020-07-06] MEDS: LIPASE/PROTEASE/AMYLASE CAPSULE PO SCH ×3 (12:18→17:18)
--- NOTE | 2020-07-06 15:25 | Ultrasound Report ---
PROCEDURE: Duplex Ext Veins Right INDICATIONS: R arm vein infiltrated is firm/painful TECHNIQUE: Real-time imaging, as well as color and pulse Doppler interrogation, were performed of the lower extr emity deep veins from the inguinal ligament to the popliteal fossa. COMPARISON: None. FINDINGS: There is a visually obvious area of erythema and edema in the forearm. There is occlusive e chogenic thrombus in the superficial veins of the forearm immediately deep to this area, with no Dopp ler evidence of internal flow. However, the deep veins of the upper extremity are free of intralumina l thrombus and appear compressible with normal response to augmentation maneuver. IMPRESSION: Superficial venous thrombosis in the mid forearm immediately subjacent to the area of sk in edema and erythema. This is compatible with thrombophlebitis. No evidence of deep venous thrombosi s. Reviewed by: Carlin Gracia MD on 07/06/2020 3:23 PM PDT Approved by: Carlin Garcia MD on 07/06/2020 3:23 PM PDT Station ID: [id number]
--- NOTE | 2020-07-06 16:04 | PROVIDER PROGRESS NOTE ---
Assessment/Plan - Problem List (1) Superficial thrombophlebitis Qualifiers: Laterality: right Assessment/Plan: Patient complains of new pain at an area of thr R arm where an IV infiltrated and there is firmness and the patient states "something is moving". The exam shows induration and is consistent with superficial thrombophlebitis. Ultrasound was done and it does show a thrombus in a superficial vein. We will treat it symptomatically with elevation, warm alternating with cool soaks, and NSAIDs prn and topical NSAIDs if we have that available. No indication for anticoagulants since it is not a DVT. She may need follow-up ultrasound in 1 to 2 weeks to determine if it is still present, or enlarged. (2) Community acquired pneumonia Qualifiers: Laterality: unspecified laterality Qualified Code(s): J18.9 - Pneumonia, unspecified organism Assessment/Plan: Continue antibiotics, airway clearance and symptomatic care. (3) Pseudomonas respiratory infection Assessment/Plan: Continue with meropenem and start levofloxacin, since double coverage is required for Pseudomonas in a cystic fibrosis patient (4) Staph aureus infection Assessment/Plan: As per Up-To-Date: When methicillin-sensitive Staph aureus accompanies Pseudomonas, adequate treatment is with meropenem plus fluoroquinolone (5) Cystic fibrosis Assessment/Plan: Creon was started 2 days ago. Continue Albuterol for airway clearance plus chest physical therapy tid. I reached out to [employer] phone # today, for discussion with their Perishable Freight Inspector about overall management for this patyient with CF, and the response was that they no longer have a Perishable Freight Inspector available for [employer] questions, as of 05/30/20. She now has health insurance with the Affordable Care Act, and she will need to have follow-up with the pulmonary service after discharge, which is where she used to be seen as a child. (6) Sepsis Assessment/Plan: Resolved - Current Meds Current Meds: Current Medications Generic Name Dose Route Start Last Admin Trade Name Freq PRN Reason Stop Dose Admin Acetaminophen 650 mg 07/02/20 08:03 07/06/20 07:50 Tylenol PO 650 mg Q4HR PRN Administration Pain 1 to 4 Albuterol 2.5 mg 07/04/20 00:10 07/06/20 12:27 INH 2.5 mg RTQ4H PRN Administration Wheezing Lipase/Protease/Amylase 6 cap 07/05/20 12:00 07/06/20 12:[address] 5,000/17,000/27,000 Prison PO Not Given TIDWM [facility] Enoxaparin Sodium 40 mg 07/02/20 09:00 07/06/20 12:06 Lovenox SUBQ Not Given DAILY LILLIE Lactobacillus Rhamnosus 1 cap 07/03/20 12:00 07/06/20 10:44 Culturelle PO 1 cap DAILY LILLIE Administration Levofloxacin 750 mg 07/06/20 11:00 07/06/20 12:18 Levaquin PO 750 mg DAILY LILLIE Administration Multivitamins/Minerals 1 tab 07/03/20 12:00 07/06/20 10:44 Theragran M PO 1 tab DAILYWM LILLIE Administration Phenol/Menthol 2 sprays 07/04/20 08:59 07/04/20 10:54 Chloraseptic MM 2 sprays Q2HR PRN Administration Throat Pain Simethicone 80 mg 07/02/20 20:00 07/04/20 09:01 Mylicon PO 80 mg Q6HR PRN Administration GAS Sodium Chloride 10 ml 07/02/20 08:03 07/04/20 13:14 Normal Saline Flush 0.9% IVP 10 ml PRN PRN Administration NEEDED PER PROVIDER ORDERS Sodium Chloride 10 ml 07/02/20 09:00 07/06/20 10:44 Normal Saline Flush 0.9% IVP 10 ml 0100,0900,1700 LILLIE Administration Throat Lozenges 1 lozenge 07/04/20 08:59 07/06/20 14:25 Cepacol MM 1 lozenge Q2HR PRN Administration Throat pain - Lab Result Fish Bone Diagrams: 07/06/20 05:20 07/06/20 05:20 - Additional Planning My Orders: My Active Orders 07/06/20 00:39 Sodium Chloride 0.9% [Normal Saline 0.9%] 500 ml IV Q24H 07/06/20 11:00 levoFLOXacin [Levaquin] 750 mg PO DAILY 07/06/20 16:02 Meropenem [Merrem] 2 gm Sodium Chloride 0.9% Minibag [Normal Saline 0.9% Minibag] 100 ml IV Q8H Subjective - Subjective Patient Reports: Pain (Complains of pain and firmness at an IV site that was removed yesterday because it infiltrated.) Objective Vital Signs: Vital Signs - 24 hr 07/05/20 07/05/20 07/06/20 20:02 22:42 00:43 Temperature 36.7 C 36.7 C Heart Rate 103 H Heart Rate [ 112 H 104 H Brachial] Respiratory 24 20 20 Rate Blood Pressure 105/61 [Left Brachial artery] Blood Pressure 101/65 [Right Brachial artery] O2 Saturation 97 97 07/06/20 07/06/20 07/06/20 04:18 09:00 12:27 Temperature 36.5 C 36.4 C L Heart Rate 95 Heart Rate [ 103 H 97 Brachial] Respiratory 20 20 18 Rate Blood Pressure 111/62 [Left Brachial artery] Blood Pressure 106/63 [Right Brachial artery] O2 Saturation 96 96 07/06/20 12:47 Temperature 36.5 C Heart Rate Heart Rate [ 98 Brachial] Respiratory 18 Rate Blood Pressure 106/56 L [Left Brachial artery] Blood Pressure [Right Brachial artery] O2 Saturation 96 Oxygen O2 Source Nasal cannula Oxygen Flow Rate 2 I&O (Last 24 Hrs): Intake and Output Totals x24h 07/04/20 07/05/20 07/06/20 23:59 23:59 23:59 Intake Total 3000 2150 890 Output Total 1200 1400 Balance 1800 2150 -510 General: Alert, Oriented x3 HEENT: Mucous membr. moist/pink, Other (Still mhoarse and nasal voive) Neck: Supple, No JVD Neuro: Alert, Non Focal Cardiovascular: Regular rate, No murmurs Respiratory: Rales (Velcro-sounding rales in both upper lung field) Abdomen: Soft, No tenderness Extremities: Other (Diffuse red area in mid inner right distal forearm, Tender to touch and warm and firm in center) - Results Results: Laboratory Results WBC 15.9 x10^3/uL (4.8-10.8) H 07/06/20 05:20 RBC 4.11 10^6/uL (4.20-5.40) L 07/06/20 05:20 Hgb 11.2 g/dL (12.0-16.0) L 07/06/20 05:20 Hct 36.3 % (37.0-47.0) L 07/06/20 05:20 MCV 88.3 fL (81.0-99.0) 07/06/20 05:20 MCH 27.3 pg (27.0-31.0) 07/06/20 05:20 MCHC 30.9 g/dL (32.0-36.0) L 07/06/20 05:20 RDW 12.6 % (12.0-15.0) 07/06/20 05:20 Plt Count 356 10^3/uL (130-450) 07/06/20 05:20 MPV 9.5 fL (7.9-10.8) 07/06/20 05:20 Neut # (Auto) 11.7 10^3/uL (1.5-6.6) H 07/06/20 05:20 Lymph # (Auto) 1.9 10^3/uL (1.5-3.5) 07/06/20 05:20 [place] # (Auto) 1.2 10^3/uL (0.0-1.0) H 07/06/20 05:20 Eos # (Auto) 0.8 10^3/uL (0.0-0.7) H 07/06/20 05:20 Baso # (Auto) 0.1 10^3/uL (0.0-0.1) 07/06/20 05:20 Absolute Nucleated RBC 0.00 x10^3/uL 07/06/20 05:20 Total Counted 100 07/03/20 05:37 Band Neuts % (Manual) Not Reportable 07/05/20 05:00 Abnorm Lymph % (Manual) Not Reportable 07/05/20 05:00 Nucleated RBC % 0.0 /100WBC 07/06/20 05:20 Neutrophils # (Manual) Not Reportable 07/05/20 05:00 Lymphocytes # (Manual) Not Reportable 07/05/20 05:00 Monocytes # (Manual) Not Reportable 07/05/20 05:00 Eosinophils # (Manual) Not Reportable 07/05/20 05:00 Basophils # (Manual) Not Reportable 07/05/20 05:00 Differential Comment MANUAL=AUTO DIFF 07/05/20 05:00 Manual Slide Review Indicated 07/04/20 04:45 WBC Morphology NORMAL APPEARANCE (NORMAL) 07/03/20 05:37 Platelet Estimate NORMAL (130-450,000) (NORMAL) 07/05/20 05:00 Platelet Morphology NORMAL APPEARANCE (NORMAL) 07/04/20 04:45 RBC Morph Micro Appear NORMAL APPEARANCE (NORMAL) 07/05/20 05:00 Sodium 140 mmol/L (135-145) 07/06/20 05:20 Potassium 3.9 mmol/L (3.5-5.0) 07/06/20 05:20 Chloride 105 mmol/L (101-111) 07/06/20 05:20 Carbon Dioxide 28 mmol/L (21-32) 07/06/20 05:20 Anion Gap 7.0 (6-13) 07/06/20 05:20 BUN 8 mg/dL (6-20) 07/06/20 05:20 Creatinine 0.3 mg/dL (0.4-1.0) L 07/06/20 05:20 Estimated GFR (MDRD) 255 (>89) 07/06/20 05:20 Glucose 111 mg/dL (70-100) H 07/06/20 05:20 Lactic Acid 1.0 mmol/L (0.5-2.2) 07/02/20 07:33 Calcium 8.2 mg/dL (8.5-10.3) L 07/06/20 05:20 Phosphorus 1.9 mg/dL (2.5-4.6) L 07/06/20 05:20 Magnesium 2.0 mg/dL (1.7-2.8) 07/06/20 05:20 Total Bilirubin 0.6 mg/dL (0.2-1.0) 07/02/20 06:46 AST 15 IU/L (10-42) 07/02/20 06:46 ALT 21 IU/L (10-60) 07/02/20 06:46 Alkaline Phosphatase 99 IU/L (42-121) 07/02/20 06:46 Total Protein 7.5 g/dL (6.7-8.2) 07/02/20 06:46 Albumin 3.4 g/dL (3.2-5.5) 07/02/20 06:46 Globulin 4.1 g/dL (2.1-4.2) 07/02/20 06:46 Albumin/Globulin Ratio 0.8 (1.0-2.2) L 07/02/20 06:46 Lipase 15 U/L (22-51) L 07/02/20 06:46 Ur Specific [place] 1.010 (1.002-1.030) 07/03/20 10:00 Urine HCG, Qual NEGATIVE 07/03/20 10:00 Nasal Screen MRSA (PCR) NEGATIVE (NEGATIVE) 07/05/20 12:00 Last Dose Date 07/06/20 07/06/20 10:20 Last Dose Time 0400 07/06/20 10:20 Vancomycin Trough 15.2 ug/mL (10.0-20.0) 07/06/20 10:20 Coronavirus (PCR) NEGATIVE 07/02/20 09:05 Influenza A (Rapid) Negative (Negative) 07/02/20 11:28 Influenza B (Rapid) Negative (Negative) 07/02/20 11:28 Sepsis Event Note (H) - Evaluation Current Stage of Sepsis: Sepsis Possible source of Sepsis: positive: Pulmonary - Sepsis Criteria Sepsis Criteria: Recorded Heart Rate greater than 90 bpm, Recorded Respiratory Rate greater than 20, Respiratory: Increasing oxygen requirements, WBC count greater than 12,000 or less than 4000
[2020-07-06] MEDS: MEROPENEM 2 GM in SODIUM CHLORIDE 0.9% MINIBAG 100 ML IV SCH (17:18)
[2020-07-06] MEDS ORDERED: IBUPROFEN 600 MG TABLET PO PRN (18:54)
[2020-07-07] MEDS: MEROPENEM 2 GM in SODIUM CHLORIDE 0.9% MINIBAG 100 ML IV SCH ×3 (01:02→16:33)
[2020-07-07 06:24] LABS: BASOPHILS # (AUTO) 0.1 10^3/uL (0.0-0.1); BASOPHILS % (AUTO) 0.6 %; EOSINOPHILS # (AUTO) 0.8 10^3/uL (0.0-0.7); HGB - HEMOGLOBIN 12.2 g/dL (12.0-16.0); LYMPHOCYTES # (AUTO) 2.6 10^3/uL (1.5-3.5); LYMPHOCYTES % (AUTO) 16.4 %; MEAN CORPUSCULAR HEMOGLOBIN 26.5 pg (27.0-31.0); MEAN CORPUSCULAR HGB CONC 30.5 g/dL (32.0-36.0); MEAN CORPUSCULAR VOLUME 86.8 fL (81.0-99.0); MEAN PLATELET VOLUME 9.4 fL (7.9-10.8); MONOCYTES # (AUTO) 1.2 10^3/uL (0.0-1.0); MONOCYTES % (AUTO) 7.7 %; NEUTROPHILS # (AUTO) 10.8 10^3/uL (1.5-6.6); NEUTROPHILS % (AUTO) 69.4 %; PLT - PLATELET COUNT 468 10^3/uL (130-450); RED BLOOD COUNT 4.61 10^6/uL (4.20-5.40); RED CELL DISTRIBUTION WIDTH 12.6 % (12.0-15.0); WHITE BLOOD COUNT 15.5 x10^3/uL (4.8-10.8)
[2020-07-07 06:38] LABS: CREATININE 0.6 mg/dL (0.4-1.0); MAGNESIUM 2.2 mg/dL (1.7-2.8); PHOSPHORUS 2.8 mg/dL (2.5-4.6)
--- NOTE | 2020-07-07 07:36 | PROVIDER PROGRESS NOTE ---
Subjective - Prog Note Date Prog Note Date: 07/07/20 - Subjective Subjective: She reports feeling better today. She still is a productive cough with this is improved. She feels less short of breath. She is down to 1 L of oxygen. She reports her right arm does not hurt but she is concerned about the clot there. She continues to use the compresses. Current Medications - Current Medications Current Medications: Active Medications Acetaminophen (Tylenol) 650 mg PO Q4HR PRN PRN Reason: Pain 1 to 4 Last Admin: 07/07/20 12:58 Dose: 650 mg Documented by: Albuterol () 2.5 mg INH RTQ4H PRN PRN Reason: Wheezing Last Admin: 07/07/20 10:58 Dose: 2.5 mg Documented by: Lipase/Protease/Amylase (Pancrelipase Dr 5,000/17,000/27,000 Longterm) 6 cap PO TIDWM [facility] Last Admin: 07/07/20 10:50 Dose: Not Given Documented by: Doxycycline Hyclate (Vibramycin) 100 mg PO BID [facility] Enoxaparin Sodium (Lovenox) 40 mg SUBQ DAILY [facility] Last Admin: 07/07/20 10:44 Dose: Not Given Documented by: Guaifenesin (Robitussin Dm) 10 ml PO Q6HR PRN PRN Reason: Cough Sodium Chloride (Normal Saline 0.9%) 500 mls @ 0 mls/hr IV Q24H PRN PRN Reason: TKO RATE Last Admin: 07/06/20 23:35 Dose: 20 mls/hr Documented by: Meropenem 2 gm/ Sodium (Chloride) 100 mls @ 200 mls/hr IV Q8H [facility] Last Infusion: 07/07/20 11:15 Dose: Infused Documented by: Ibuprofen (Motrin) 600 mg PO Q6HR PRN PRN Reason: PAIN Lactobacillus Rhamnosus (Culturelle) 1 cap PO DAILY [facility] Last Admin: 07/07/20 10:45 Dose: 1 cap Documented by: Levofloxacin (Levaquin) 750 mg PO DAILY [facility] Last Admin: 07/07/20 10:44 Dose: 750 mg Documented by: Multivitamins/Minerals (Theragran M) 1 tab PO DAILYWM [facility] Last Admin: 07/07/20 10:44 Dose: 1 tab Documented by: Ondansetron HCl (Zofran Inj) 4 mg IVP Q6HR PRN PRN Reason: Nausea / Vomiting Phenol/Menthol (Chloraseptic) 2 sprays MM Q2HR PRN PRN Reason: Throat Pain Last Admin: 07/04/20 10:54 Dose: 2 sprays Documented by: Simethicone (Mylicon) 80 mg PO Q6HR PRN PRN Reason: GAS Last Admin: 07/04/20 09:01 Dose: 80 mg Documented by: Sodium Chloride (Normal Saline Flush 0.9%) 10 ml IVP PRN PRN PRN Reason: NEEDED PER PROVIDER ORDERS Last Admin: 07/04/20 13:14 Dose: 10 ml Documented by: Sodium Chloride (Normal Saline Flush 0.9%) 10 ml IVP 0100,0900,1700 LILLIE Last Admin: 07/07/20 10:45 Dose: Not Given Documented by: Throat Lozenges (Cepacol) 1 lozenge MM Q2HR PRN PRN Reason: Throat pain Last Admin: 07/06/20 14:25 Dose: 1 lozenge Documented by: Objective - Vital Signs/Intake & Output Reviewed Vital Signs: Yes Vital Signs: Vital Signs x48h Temp Pulse Resp BP Pulse Ox 07/07/20 04:49 36.9 C 104 H 16 106/67 95 Intake & Output: Intake & Output 07/04/20 07/05/20 07/06/20 07/07/20 23:59 23:59 23:59 23:59 Intake Total 3000 2150 1540 100 Output Total 1200 1600 Balance 1800 2150 -60 100 - Objective General Appearance: positive: No acute distress, Alert Eyes Bilateral: positive: Normal inspection, Conjunctivae nml ENT: positive: ENT inspection nml, Other (Nasal cannula in place.) Neck: positive: Nml inspection Respiratory: positive: No respiratory distress. negative: Wheezes, Rales Cardiovascular: positive: Tachycardia. negative: Irregularly irregular, Bradycardia, Systolic murmur Abdomen: positive: Non-tender, No distention. negative: Tenderness, Guarding, Rebound Skin: positive: Warm, Dry Extremities: positive: Full ROM, No pedal edema - Lab Results Fish Bones: 07/07/20 06:10 07/07/20 06:10 Other Labs: Lab Results x24hrs 07/07/20 07/07/2020 Range/Units 06:10 06:10 10:20 WBC 15.5 H (4.8-10.8) x10^3/uL RBC 4.61 (4.20-5.40) 10^6/uL Hgb 12.2 (12.0-16.0) g/dL Hct 40.0 (37.0-47.0) % MCV 86.8 (81.0-99.0) fL MCH 26.5 L (27.0-31.0) pg MCHC 30.5 L (32.0-36.0) g/dL RDW 12.6 (12.0-15.0) % Plt Count 468 H (130-450) 10^3/uL MPV 9.4 (7.9-10.8) fL Neut # (Auto) 10.8 H (1.5-6.6) 10^3/uL Lymph # (Auto) 2.6 (1.5-3.5) 10^3/uL [place] # (Auto) 1.2 H (0.0-1.0) 10^3/uL Eos # (Auto) 0.8 H (0.0-0.7) 10^3/uL Baso # (Auto) 0.1 (0.0-0.1) 10^3/uL Absolute Nucleated RBC 0.00 x10^3/uL Nucleated RBC % 0.0 /100WBC Sodium 137 (135-145) mmol/L Potassium 4.1 (3.5-5.0) mmol/L Chloride 97 L (101-111) mmol/L Carbon Dioxide 30 (21-32) mmol/L Anion Gap 10.0 (6-13) BUN 11 (6-20) mg/dL Creatinine 0.6 (0.4-1.0) mg/dL Estimated GFR (MDRD) 114 (>89) Glucose 102 H (70-100) mg/dL Calcium 9.0 (8.5-10.3) mg/dL Phosphorus 2.8 (2.5-4.6) mg/dL Magnesium 2.2 (1.7-2.8) mg/dL Last Dose Date 07/06/20 Last Dose Time 0400 Vancomycin Trough 15.2 (10.0-20.0) ug/mL ABX Reporting Has patient been on IV antibiotics over the past 48 hours?: Yes Sepsis Event Note (H) - Evaluation Current Stage of Sepsis: Sepsis Possible source of Sepsis: positive: Pulmonary - Sepsis Criteria Sepsis Criteria: Recorded Heart Rate greater than 90 bpm, Recorded Respiratory Rate greater than 20, Respiratory: Increasing oxygen requirements, WBC count greater than 12,000 or less than 4000 Assessment/Plan - Problem List (1) Community acquired pneumonia Impression: She continues to clinically improve. Lower respiratory cultures have grown Pseudomonas and staph aureus. She remains on oxygen but her requirements are decreasing as she is now on 1 L. Her white count also continues to improve. We will continue the meropenem and Levaquin. We will add doxycycline given the staph aureus in her lower respiratory cultures. We will hope to be able to discharge her tomorrow on oral antibiotics. She will likely need at least 2 weeks of total therapy. She will need outpatient follow-up with a pocket closer. Qualifiers: Laterality: unspecified laterality Qualified Code(s): J18.9 - Pneumonia, unspecified organism (2) Superficial thrombophlebitis Impression: This was evident on duplex performed July 06. We will continue with supportive measures like NSAIDs and compresses. Qualifiers: Superficial thrombophlebitis-Involved body area: upper extremity Laterality: right Qualified Code(s): I80.8 - Phlebitis and thrombophlebitis of other sites (3) Cystic fibrosis Impression: Stable. We will continue chest physical therapy while she is hospitalized. We are working on obtaining home percussion vest airway clearance device for the patient on discharge. We will continue Creon while she is hospitalized and on discharge. Will need outpatient follow-up with pulmonology. (4) Sepsis Impression: This has resolved.
[2020-07-07] MEDS: ALBUTEROL NEB 2.5 MG/3 ML INH PRN ×3 (07:45→18:02)
[2020-07-07] MEDS ORDERED: SODIUM CHLORIDE 0.9% MINIBAG 100 ML IV ONE (10:40)
[2020-07-07] MEDS: LIPASE/PROTEASE/AMYLASE CAPSULE PO SCH ×3 (10:43→16:33)
[2020-07-07] MEDS: ENOXAPARIN 40 MG/0.4 ML SYRINGE SUBQ SCH (10:44)
[2020-07-07] MEDS: levoFLOXacin 250 MG TABLET PO SCH (10:44)
[2020-07-07] MEDS: MULTIVITAMIN W/MINERALS TABLET PO SCH (10:44)
[2020-07-07] MEDS: SODIUM CHLORIDE FLUSH 0.9% 10 ML SYRINGE IVP SCH ×2 (10:45→16:33)
[2020-07-07] MEDS: LACTOBACILLUS RHAMNOSUS GG CAPSULE PO SCH (10:45)
--- NOTE | 2020-07-07 11:16 | XRAY Report ---
PROCEDURE: Chest 1 View X-Ray INDICATIONS: F/U pneumonia TECHNIQUE: One view of the chest was acquired. COMPARISON: 07/02/2020 FINDINGS: Surgical changes and devices: None. Lungs and pleura: No pleural effusions or pneumothorax. Patchy ground glass opacities in the lungs b ilaterally not significantly changed compared to 07/02/2020. Mediastinum: Mediastinal contours appear normal. Heart size is normal. Bones and chest wall: No suspicious bony lesions. Overlying soft tissues appear unremarkable. IMPRESSION: Bilateral lung patchy groundglass opacities highly suspicious for atypical/viral pneumonia are not si gnificantly changed compared to 07/02/2020. Reviewed by: Symone Haddad MD, PhD on 07/07/2020 11:15 AM PDT Approved by: Symone Haddad MD, PhD on 07/07/2020 11:15 AM PDT Station ID: [id number]
[2020-07-07] MEDS: ACETAMINOPHEN 325 MG TABLET PO PRN ×2 (12:58→21:58)
[2020-07-07] MEDS: DOXYCYCLINE 100 MG TABLET PO SCH (20:45)
[2020-07-08] MEDS: SODIUM CHLORIDE FLUSH 0.9% 10 ML SYRINGE IVP SCH ×3 (01:26→16:36)
[2020-07-08] MEDS: ACETAMINOPHEN 325 MG TABLET PO PRN ×3 (02:19→15:49)
[2020-07-08 05:46] LABS: BASOPHILS # (AUTO) 0.1 10^3/uL (0.0-0.1); BASOPHILS % (AUTO) 0.7 %; EOSINOPHILS # (AUTO) 0.7 10^3/uL (0.0-0.7); HGB - HEMOGLOBIN 12.1 g/dL (12.0-16.0); LYMPHOCYTES % (AUTO) 15.6 %; MEAN CORPUSCULAR HEMOGLOBIN 26.9 pg (27.0-31.0); MEAN CORPUSCULAR HGB CONC 31.5 g/dL (32.0-36.0); MEAN CORPUSCULAR VOLUME 85.5 fL (81.0-99.0); MEAN PLATELET VOLUME 9.1 fL (7.9-10.8); MONOCYTES # (AUTO) 1.2 10^3/uL (0.0-1.0); MONOCYTES % (AUTO) 9.3 %; NEUTROPHILS # (AUTO) 8.9 10^3/uL (1.5-6.6); NEUTROPHILS % (AUTO) 68.4 %; PLT - PLATELET COUNT 497 10^3/uL (130-450); RED BLOOD COUNT 4.49 10^6/uL (4.20-5.40); RED CELL DISTRIBUTION WIDTH 12.6 % (12.0-15.0)
[2020-07-08 06:08] LABS: CALCIUM 9.2 mg/dL (8.5-10.3); CREATININE 0.4 mg/dL (0.4-1.0)
[2020-07-08 07:59] LABS: % IRON SATURATION 12 % (20-50); IRON 34 ug/dL (28-170); TOTAL IRON BINDING CAPACITY 283 ug/dL (250-450); TRANSFERRIN 202 mg/dL (192-382)
[2020-07-08] MEDS: LIPASE/PROTEASE/AMYLASE CAPSULE PO SCH ×3 (08:11→16:45)
[2020-07-08] MEDS: ENOXAPARIN 40 MG/0.4 ML SYRINGE SUBQ SCH (08:12)
[2020-07-08] MEDS: MULTIVITAMIN W/MINERALS TABLET PO SCH (08:12)
[2020-07-08] MEDS: DOXYCYCLINE 100 MG TABLET PO SCH ×2 (08:12→20:31)
[2020-07-08] MEDS: levoFLOXacin 250 MG TABLET PO SCH (08:12)
[2020-07-08] MEDS: LACTOBACILLUS RHAMNOSUS GG CAPSULE PO SCH (08:12)
[2020-07-08] MEDS: ALBUTEROL NEB 2.5 MG/3 ML INH PRN ×2 (09:31→16:11)
[2020-07-08] MEDS ORDERED: ONDANSETRON ODT 4 MG TABLET TL PRN (10:43)
--- NOTE | 2020-07-08 12:53 | PROVIDER PROGRESS NOTE ---
Subjective - Prog Note Date Prog Note Date: 07/08/20 - Subjective Subjective: Ports feeling improved but still feels dyspneic with exertion and occasionally lightheaded. She feels like she needs 1 more day in the hospital. She did have some nausea and episode of vomiting this morning. Current Medications - Current Medications Current Medications: Active Medications Acetaminophen (Tylenol) 650 mg PO Q4HR PRN PRN Reason: Pain 1 to 4 Last Admin: 07/08/20 08:11 Dose: 650 mg Documented by: Albuterol () 2.5 mg INH RTQ4H PRN PRN Reason: Wheezing Last Admin: 07/08/20 09:31 Dose: 2.5 mg Documented by: Lipase/Protease/Amylase (Pancrelipase Dr 5,000/17,000/27,000 Retirement) 6 cap PO TIDWM [facility] Last Admin: 07/08/20 11:40 Dose: 6 cap Documented by: Doxycycline Hyclate (Vibramycin) 100 mg PO BID [facility] Last Admin: 07/08/20 08:12 Dose: 100 mg Documented by: Enoxaparin Sodium (Lovenox) 40 mg SUBQ DAILY [facility] Last Admin: 07/08/20 08:12 Dose: Not Given Documented by: Guaifenesin (Robitussin Dm) 10 ml PO Q6HR PRN PRN Reason: Cough Sodium Chloride (Normal Saline 0.9%) 500 mls @ 0 mls/hr IV Q24H PRN PRN Reason: TKO RATE Last Infusion: 07/08/20 08:17 Dose: Infused Documented by: Ibuprofen (Motrin) 600 mg PO Q6HR PRN PRN Reason: PAIN Lactobacillus Rhamnosus (Culturelle) 1 cap PO DAILY [facility] Last Admin: 07/08/20 08:12 Dose: 1 cap Documented by: Levofloxacin (Levaquin) 750 mg PO DAILY [facility] Last Admin: 07/08/20 08:12 Dose: 750 mg Documented by: Multivitamins/Minerals (Theragran M) 1 tab PO DAILYWM [facility] Last Admin: 07/08/20 08:12 Dose: 1 tab Documented by: Ondansetron HCl (Zofran Inj) 4 mg IVP Q6HR PRN PRN Reason: Nausea / Vomiting Ondansetron HCl (Zofran Odt) 4 mg TL Q4HR PRN PRN Reason: Nausea / Vomiting Last Admin: 07/08/20 11:14 Dose: 4 mg Documented by: Phenol/Menthol (Chloraseptic) 2 sprays MM Q2HR PRN PRN Reason: Throat Pain Last Admin: 07/04/20 10:54 Dose: 2 sprays Documented by: Simethicone (Mylicon) 80 mg PO Q6HR PRN PRN Reason: GAS Last Admin: 07/04/20 09:01 Dose: 80 mg Documented by: Sodium Chloride (Normal Saline Flush 0.9%) 10 ml IVP PRN PRN PRN Reason: NEEDED PER PROVIDER ORDERS Last Admin: 07/04/20 13:14 Dose: 10 ml Documented by: Sodium Chloride (Normal Saline Flush 0.9%) 10 ml IVP 0100,0900,1700 LILLIE Last Admin: 07/08/20 08:12 Dose: Not Given Documented by: Throat Lozenges (Cepacol) 1 lozenge MM Q2HR PRN PRN Reason: Throat pain Last Admin: 07/06/20 14:25 Dose: 1 lozenge Documented by: Objective - Vital Signs/Intake & Output Reviewed Vital Signs: Yes Vital Signs: Vital Signs x48h Temp Pulse Pulse Resp BP BP Pulse Ox 07/08/20 11:36 36.6 C 107 H 20 132/74 H 94 07/08/20 09:32 110 H 20 07/08/20 08:11 36.5 C 104 H 22 113/77 90 L 07/08/20 05:00 36.7 C 101 H 16 136/78 H 94 Intake & Output: Intake & Output 07/05/20 07/06/20 07/07/20 07/08/20 23:59 23:59 23:59 23:59 Intake Total 2150 1540 1600 1038 Output Total 1600 40 Balance 2150 -60 1600 998 - Objective General Appearance: positive: No acute distress, Alert Eyes Bilateral: positive: Normal inspection, Conjunctivae nml ENT: positive: ENT inspection nml Neck: positive: Nml inspection Respiratory: positive: No respiratory distress. negative: Wheezes, Rales Cardiovascular: positive: Tachycardia. negative: Irregularly irregular, Bradycardia, Systolic murmur Abdomen: positive: Non-tender, No distention. negative: Tenderness Skin: positive: Warm, Dry Extremities: positive: No pedal edema, Other (There is minimal erythema over the lateral aspect of the right forearm. The palpable cord is less prominent today. No tenderness on palpation.) Neurologic/Psychiatric: positive: Oriented x3 - Lab Results Fish Bones: 07/08/20 05:30 07/08/20 05:30 Other Labs: Lab Results x24hrs 07/08/20 07/08/20 07/08/20 Range/Units 05:30 05:30 05:30 WBC (4.8-10.8) x10^3/uL RBC (4.20-5.40) 10^6/uL Hgb (12.0-16.0) g/dL Hct (37.0-47.0) % MCV (81.0-99.0) fL MCH (27.0-31.0) pg MCHC (32.0-36.0) g/dL RDW (12.0-15.0) % Plt Count (130-450) 10^3/uL MPV (7.9-10.8) fL Neut # (Auto) (1.5-6.6) 10^3/uL Lymph # (Auto) (1.5-3.5) 10^3/uL [place] # (Auto) (0.0-1.0) 10^3/uL Eos # (Auto) (0.0-0.7) 10^3/uL Baso # (Auto) (0.0-0.1) 10^3/uL Absolute Nucleated RBC x10^3/uL Nucleated RBC % /100WBC Sodium 138 (135-145) mmol/L Potassium 4.0 (3.5-5.0) mmol/L Chloride 101 (101-111) mmol/L Carbon Dioxide 29 (21-32) mmol/L Anion Gap 8.0 (6-13) BUN 15 (6-20) mg/dL Creatinine 0.4 (0.4-1.0) mg/dL Estimated GFR (MDRD) 183 (>89) Glucose 74 (70-100) mg/dL Calcium 9.2 (8.5-10.3) mg/dL Iron 34 (28-170) ug/dL TIBC 283 (250-450) ug/dL % Saturation 12 L (20-50) % Transferrin 202 (192-382) mg/dL Ferritin 94.4 (11.0-306.8) ng/mL 07/08/20 Range/Units 05:30 WBC 13.0 H (4.8-10.8) x10^3/uL RBC 4.49 (4.20-5.40) 10^6/uL Hgb 12.1 (12.0-16.0) g/dL Hct 38.4 (37.0-47.0) % MCV 85.5 (81.0-99.0) fL MCH 26.9 L (27.0-31.0) pg MCHC 31.5 L (32.0-36.0) g/dL RDW 12.6 (12.0-15.0) % Plt Count 497 H (130-450) 10^3/uL MPV 9.1 (7.9-10.8) fL Neut # (Auto) 8.9 H (1.5-6.6) 10^3/uL Lymph # (Auto) 2.0 (1.5-3.5) 10^3/uL [place] # (Auto) 1.2 H (0.0-1.0) 10^3/uL Eos # (Auto) 0.7 (0.0-0.7) 10^3/uL Baso # (Auto) 0.1 (0.0-0.1) 10^3/uL Absolute Nucleated RBC 0.00 x10^3/uL Nucleated RBC % 0.0 /100WBC Sodium (135-145) mmol/L Potassium (3.5-5.0) mmol/L Chloride (101-111) mmol/L Carbon Dioxide (21-32) mmol/L Anion Gap (6-13) BUN (6-20) mg/dL Creatinine (0.4-1.0) mg/dL Estimated GFR (MDRD) (>89) Glucose (70-100) mg/dL Calcium (8.5-10.3) mg/dL Iron (28-170) ug/dL TIBC (250-450) ug/dL % Saturation (20-50) % Transferrin (192-382) mg/dL Ferritin (11.0-306.8) ng/mL ABX Reporting Has patient been on IV antibiotics over the past 48 hours?: Yes Sepsis Event Note (H) - Evaluation Current Stage of Sepsis: Resolved Possible source of Sepsis: positive: Pulmonary - Sepsis Criteria Sepsis Criteria: Recorded Heart Rate greater than 90 bpm, Recorded Respiratory Rate greater than 20, Respiratory: Increasing oxygen requirements, WBC count greater than 12,000 or less than 4000 Assessment/Plan - Problem List (1) Community acquired pneumonia Impression: Continues to improve. She is off of oxygen. Cultures have grown Pseudomonas and staph. Her white count has continued to improve. We will watch her today on oral antibiotics and if she continues to improve we will plan for discharge tomorrow. She will need 1 more week of oral antibiotics. Qualifiers: Laterality: unspecified laterality Qualified Code(s): J18.9 - Pneumonia, unspecified organism (2) Superficial thrombophlebitis Impression: This is significantly improved. Continue with NSAIDs and warm compresses as needed. Qualifiers: Superficial thrombophlebitis-Involved body area: upper extremity Laterality: right Qualified Code(s): I80.8 - Phlebitis and thrombophlebitis of other sites (3) Cystic fibrosis Impression: Stable. We have set up an outpatient home percussion vest airway clearance device for her to use at home and she will be discharged on Creon. She will need outpatient follow-up with pulmonology. (4) Sepsis Impression: This has resolved.
[2020-07-09] MEDS: SODIUM CHLORIDE FLUSH 0.9% 10 ML SYRINGE IVP SCH ×2 (03:33→08:49)
--- NOTE | 2020-07-09 07:42 | Discharge Plan ---
Discharge Plan Problem Reviewed?: Yes Disposition: Home, Self Care Condition: Stable Prescriptions: Albuterol 2.5 mg INH Q4H PRN #30 neb PRN Reason: Wheezing Lipase/Protease/Amylase [Robby Chamorro 12,000 Units Capsule] 2 cap PO TIDWM #180 capsule. Lipase/Protease/Amylase [Creon 12,000 Units Capsule] 1 cap PO BID #60 capsule. Lactobacillus Rhamnosus GG [Culturelle] 1 cap PO DAILY #7 capsule levoFLOXacin [Levaquin] 750 mg PO DAILY #18 tablet Multivitamin W/Minerals [Theragran M] 1 tab PO DAILYWM #30 tablet Doxycycline [Vibramycin] 100 mg PO BID 6 Days #13 tablet Diet: Low Sodium Activity Restrictions: Activity as Tolerated Shower Restrictions: No Driving Restrictions: No Health Concerns: You were admitted to the hospital because of pneumonia. You required IV antibiotics for multiple days and you initially required oxygen as well. You have now improved and are stable for discharge home. Plan of Treatment: Please continue the oral antibiotics as prescribed for 6 more days to complete a total of 2 weeks of therapy. You will be on 2 antibiotics. 1 of them is once a day and the other one is twice a day. You are also prescribed Creon which is an enzyme to help digest food given your history of cystic fibrosis. Assessment: The patient expressed understanding of the treatment plan. Please return to the emergency department if you develop any fevers, chills, worsening shortness of breath or chest pain. Additional Instructions or Follow Up instructions: These follow-up with your new primary care provider this week as scheduled. You should be referred to a lung specialist given your history of cystic fibrosis. No Smoking: If you smoke, Please STOP! Call for help. Follow-up with: MICHAEL SCHROEDER MD [Physician No Access] -
[2020-07-09 08:19] VITALS: BP 128/80
[2020-07-09] MEDS: DOXYCYCLINE 100 MG TABLET PO SCH (08:46)
[2020-07-09] MEDS: LIPASE/PROTEASE/AMYLASE CAPSULE PO SCH (08:46)
[2020-07-09] MEDS: levoFLOXacin 250 MG TABLET PO SCH (08:47)
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
[2020-07-09] MEDS: MULTIVITAMIN W/MINERALS TABLET PO SCH (08:48)
[2020-07-09] MEDS: LACTOBACILLUS RHAMNOSUS GG CAPSULE PO SCH (08:48)
[2020-07-09] MEDS: ENOXAPARIN 40 MG/0.4 ML SYRINGE SUBQ SCH (08:49)
[2020-07-09 09:07] LABS: BASOPHILS # (AUTO) 0.1 10^3/uL (0.0-0.1); BASOPHILS % (AUTO) 0.9 %; EOSINOPHILS # (AUTO) 0.5 10^3/uL (0.0-0.7); EOSINOPHILS % (AUTO) 4.5 %; HGB - HEMOGLOBIN 12.2 g/dL (12.0-16.0); LYMPHOCYTES # (AUTO) 2.1 10^3/uL (1.5-3.5); LYMPHOCYTES % (AUTO) 18.9 %; MEAN CORPUSCULAR HEMOGLOBIN 27.2 pg (27.0-31.0); MEAN CORPUSCULAR HGB CONC 31.9 g/dL (32.0-36.0); MEAN CORPUSCULAR VOLUME 85.3 fL (81.0-99.0); MEAN PLATELET VOLUME 9.2 fL (7.9-10.8); MONOCYTES # (AUTO) 0.7 10^3/uL (0.0-1.0); MONOCYTES % (AUTO) 6.3 %; NEUTROPHILS # (AUTO) 7.8 10^3/uL (1.5-6.6); NEUTROPHILS % (AUTO) 68.5 %; PLT - PLATELET COUNT 502 10^3/uL (130-450); RED BLOOD COUNT 4.49 10^6/uL (4.20-5.40); RED CELL DISTRIBUTION WIDTH 12.7 % (12.0-15.0); WHITE BLOOD COUNT 11.3 x10^3/uL (4.8-10.8)
== END 2020-07-09 10:57 | disposition home or self-care (01) | DRG 871 ==
LOC: EDUNIT# → ED 06:14 → MS2 08:03
PROVIDERS: ADMIT Internal Medicine; ATTEND Internal Medicine
DX: A41.52 Sepsis due to Pseudomonas (principal); J15.1 Pneumonia due to Pseudomonas; J15.211 Pneumonia due to Methicillin susceptible Staphylococcus aureus; E84.9 Cystic fibrosis, unspecified; T80.1XXA Vascular complications following infusion, transfusion and therapeutic injection, initial encounter; Y92.230 Patient room in hospital as the place of occurrence of the external cause; I80.8 Phlebitis and thrombophlebitis of other sites; A41.01 Sepsis due to Methicillin susceptible Staphylococcus aureus; D47.3 Essential (hemorrhagic) thrombocythemia; Z20.828 Contact with and (suspected) exposure to other viral communicable diseases
CPT/HCPCS: 36415; 71045; 71275; 80048; 80053; 80202; 81025; 82728; 83540; 83605; 83690; 83735; 84100; 84466; 85025; 87040; 87070; 87077; 87181; 87205; 87275; 87276; 87635; 87640; 93005; 93971; 94640; 94667; 94668; 99284; 99285; A9270; J2185; J3370; Q0162; Q9967; 84484

== ENCOUNTER 2020-07-26 07:42 | Outpatient (CLI) | payer MEDICAID ==
--- NOTE | 2020-07-26 15:16 | XRAY Report ---
PROCEDURE: Chest 2 View X-Ray INDICATIONS: Cystic fibrosis TECHNIQUE: 2 view(s) of the chest. COMPARISON: 07/07/2020 FINDINGS: Surgical changes and devices: None. Lungs and pleura: Patchy interstitial and airspace opacities seen on the prior study have improved bu t not entirely resolved. Chronic findings of cystic fibrosis are redemonstrated. Mediastinum: Mediastinal contours are normal. Heart size is normal. Bones and chest wall: No suspicious bony abnormalities. Soft tissues appear unremarkable. IMPRESSION: Findings of cystic fibrosis similar to prior exam. Acute airspace opacities seen on the previous exam have improved but not entirely resolved. Reviewed by: Carlin Garcia MD on 07/26/2020 3:15 PM PDT Approved by: Carlin Garcia MD on 07/26/2020 3:15 PM PDT Station ID: [id number]
== END 2020-07-26 23:59 ==
LOC: DI.WCP 07:42
PROVIDERS: ATTEND Family Medicine
DX: E84.0 Cystic fibrosis with pulmonary manifestations (principal); R91.8 Other nonspecific abnormal finding of lung field
CPT/HCPCS: 71046

== ENCOUNTER 2020-07-26 09:14 | Outpatient (CLI) | payer MEDICAID | END 2020-07-26 09:15 | disposition home or self-care (01) | LOC: RT 09:14 | PROVIDERS: ATTEND Family Medicine | DX: E84.0 Cystic fibrosis with pulmonary manifestations (principal); K86.81 Exocrine pancreatic insufficiency | CPT/HCPCS: 94010; 94727; 94729 ==

== ENCOUNTER 2021-01-24 11:09 | Outpatient (CLI) | payer OTHER ==
[2021-01-24 18:24] LABS: BASOPHILS # (AUTO) 0.1 10^3/uL (0.0-0.1); BASOPHILS % (AUTO) 0.4 %; EOSINOPHILS # (AUTO) 0.2 10^3/uL (0.0-0.7); EOSINOPHILS % (AUTO) 1.2 %; HCT - HEMATOCRIT 44.2 % (37.0-47.0); HGB - HEMOGLOBIN 14.1 g/dL (12.0-16.0); LYMPHOCYTES # (AUTO) 1.9 10^3/uL (1.5-3.5); LYMPHOCYTES % (AUTO) 10.3 %; MEAN CORPUSCULAR HEMOGLOBIN 28.5 pg (27.0-31.0); MEAN CORPUSCULAR HGB CONC 31.9 g/dL (32.0-36.0); MEAN CORPUSCULAR VOLUME 89.3 fL (81.0-99.0); MEAN PLATELET VOLUME 10.3 fL (7.9-10.8); MONOCYTES % (AUTO) 5.6 %; PLT - PLATELET COUNT 356 10^3/uL (130-450); RED BLOOD COUNT 4.95 10^6/uL (4.20-5.40); RED CELL DISTRIBUTION WIDTH 13.9 % (12.0-15.0); WHITE BLOOD COUNT 18.3 x10^3/uL (4.8-10.8)
[2021-01-24 18:28] LABS: ALBUMIN 3.9 g/dL (3.2-5.5); ALBUMIN/GLOBULIN RATIO 1.2 (1.0-2.2); BILIRUBIN,TOTAL 0.7 mg/dL (0.2-1.0); CALCIUM 8.7 mg/dL (8.5-10.3); CREATININE 0.6 mg/dL (0.4-1.0); POTASSIUM 4.3 mmol/L (3.5-5.0); TOTAL PROTEIN 7.2 g/dL (6.7-8.2)
[2021-01-24 18:47] LABS: THYROID STIMULATING HORMONE 2.95 uIU/mL (0.34-5.60)
[2021-01-24 20:28] LABS: ESTIMATED AVERAGE GLUCOSE 114 mg/dL (70-100); HEMOGLOBIN A1c% 5.6 % (4.27-6.07)
== END 2021-01-24 11:10 | disposition home or self-care (01) ==
LOC: LAB.N 11:09
PROVIDERS: ATTEND Family Medicine
DX: Z00.00 Encounter for general adult medical examination without abnormal findings (principal); E84.0 Cystic fibrosis with pulmonary manifestations
CPT/HCPCS: 36415; 80053; 83036; 84443; 85025

== ENCOUNTER 2021-01-24 11:15 | Outpatient (CLI) | payer OTHER ==
--- NOTE | 2021-01-24 12:26 | XRAY Report ---
PROCEDURE: Chest 2 View X-Ray INDICATIONS: HEMOPTYSIS, CYSTIC FIBROSIS OF THE LUNG TECHNIQUE: 2 view(s) of the chest. COMPARISON: 07/07/2020 comparison chest plain films.. FINDINGS: Surgical changes and devices: None. Lungs and pleura: No pleural effusions or pneumothorax. Lungs are abnormal with patchy stable appea ring areas of mild cystic change in the mid and upper lungs. This has been previously present. It is consistent with the clinical history of cystic fibrosis.. Mediastinum: Mediastinal contours are normal. Heart size is normal. Bones and chest wall: No suspicious bony abnormalities. Soft tissues appear unremarkable. IMPRESSION: Patchy cystic areas of airspace disease at the mid and upper lungs bilaterally, also previously prese nt on comparison plain films 07/07/2020. No acute disease is seen. Reviewed by: Bruce Franco MD on 01/24/2021 12:25 PM PDT Approved by: Bruce Franco MD on 01/24/2021 12:25 PM PDT Station ID: [id number]
== END 2021-01-24 11:16 | disposition home or self-care (01) ==
LOC: DI.N 11:15
PROVIDERS: ATTEND Family Medicine
DX: Z00.00 Encounter for general adult medical examination without abnormal findings (principal); R91.8 Other nonspecific abnormal finding of lung field; E84.0 Cystic fibrosis with pulmonary manifestations
CPT/HCPCS: 36415; 80053; 83036; 84443; 85025

== ENCOUNTER 2021-02-07 09:42 | Outpatient (CLI) | payer OTHER ==
[2021-02-07 09:53] LABS: ABNORMAL LYMPHS % (MANUAL) 0 %; BAND NEUTROPHILS % (MANUAL) 0 %
[2021-02-07 11:39] LABS: BASOPHILS % (AUTO) 0.8 %; EOSINOPHILS % (AUTO) 1.5 %; HCT - HEMATOCRIT 45.7 % (37.0-47.0); HGB - HEMOGLOBIN 14.3 g/dL (12.0-16.0); LYMPHOCYTES % (AUTO) 19.1 %; MEAN CORPUSCULAR HGB CONC 31.3 g/dL (32.0-36.0); MEAN CORPUSCULAR VOLUME 89.6 fL (81.0-99.0); MEAN PLATELET VOLUME 10.2 fL (7.9-10.8); MONOCYTES % (AUTO) 8.4 %; NEUTROPHILS % (AUTO) 69.9 %; PLT - PLATELET COUNT 368 10^3/uL (130-450); RED CELL DISTRIBUTION WIDTH 13.2 % (12.0-15.0)
[2021-02-07 11:47] LABS: SLIDE REVIEW? Indicated
[2021-02-07 13:08] LABS: LYMPHOCYTES % (MANUAL) 4 %; NEUTROPHILS # (MANUAL) 8.5 10^3/uL (1.5-6.6)
[2021-02-07 13:09] LABS: BASOPHILS # (MANUAL) 0.2 10^3/uL (0-0.1); BASOPHILS % (MANUAL) 2 %; EOSINOPHILS # (MANUAL) 0.1 10^3/uL (0-0.7); LYMPHOCYTES # (MANUAL) 1.9 10^3/uL (1.5-3.5); MONOCYTES # (MANUAL) 1.2 10^3/uL (0.0-1.0); RBC MORPHOLOGY (MULTIPLE) 1+ ANISOCYTOSIS (NORMAL); REACTIVE LYMPHS % (MANUAL) 12 %
[2021-02-07 13:10] LABS: DIFFERENTIAL COMMENT MANUAL DIFFERENTIAL
== END 2021-02-07 09:43 | disposition home or self-care (01) ==
LOC: LAB.N 09:42
PROVIDERS: ATTEND Family Medicine
DX: D72.829 Elevated white blood cell count, unspecified (principal)
CPT/HCPCS: 36415; 85025

== ENCOUNTER 2021-12-26 13:14 | Outpatient (CLI) | payer OTHER ==
--- NOTE | 2021-12-26 17:26 | CT Report ---
PROCEDURE: Sinuses INDICATIONS: CHRONIC SINUSITIS TECHNIQUE: Noncontrast 3.0 mm axial images acquired from the frontal sinuses to the mid-sella, with coronal and sagittal reformats. For radiation dose reduction, the following was used: automated exposure control , adjustment of mA and/or kV according to patient size. COMPARISON: None. FINDINGS: Image quality: Excellent. Maxillary Sinuses: There is complete opacification of the maxillary sinuses. The medial cole of the maxillary sinuses are demineralized and bowed medially. The anterior and lateral cole of the maxill kaitlynn sinuses are thickened. Ethmoid Air Cells: No bony remodeling or destruction. Moderate mucosal thickening is seen within the posterior aspect of the left ethmoid air cells. Milder mucosal thickening is seen elsewhere. Sphenoid Sinuses: The sphenoid sinuses are poorly developed. There is a mild amount of mucosal thicke yelitza seen on the left. Frontal Sinuses: The frontal sinuses are nondeveloped. Ostiomeatal Complexes: The ostiomeatal complexes are now seen. Miscellaneous: Visualized intra-orbital contents are normal. No bruna bullosa. There is moderate r ightward nasal septal deviation. IMPRESSION: Focal prominent maxillary sinus disease, with a chronic appearance. Nonvisualized ostiomeatal complexes. Please correlate with prior removal. Reviewed by: Uvaldo Garcia MD on 12/26/2021 4:24 PM [facility] Approved by: Uvaldo Garcia MD on 12/26/2021 4:24 PM [facility] Station ID: [id number]
== END 2021-12-26 13:15 | disposition home or self-care (01) ==
LOC: DI 13:14
PROVIDERS: ATTEND Family Medicine
DX: E84.0 Cystic fibrosis with pulmonary manifestations (principal); J32.0 Chronic maxillary sinusitis

== ENCOUNTER 2023-01-04 03:42 | Inpatient (IN) | payer OTHER ==
[2023-01-04] MEDS ORDERED: IPRATROPIUM/ALBUTEROL 3 ML NEB INH STA (04:19)
[2023-01-04] MEDS ORDERED: SODIUM CHLORIDE 0.9% 1,000 ML IV STA (04:19)
--- NOTE | 2023-01-04 04:28 | ED Physician Documentation ---
PD HPI DYSPNEA - Stated complaint Stated Complaint: FATIGUE/SOA/HEADACE - Chief complaint Chief Complaint: Resp - History obtained from History obtained from: Patient - History of Present Illness Timing - onset: How many days ago (2) Timing - onset during: Rest Timing - duration: Days (2) Timing - details: Gradual onset, Still present Inciting event(s): URI Improved by: Rest, Sitting up Worsened by: Exertion, Laying flat, Coughing Associated symptoms: Cough, Palpitations Similar symptoms before: Diagnosis (pneumonia) Recently seen: Not recently seen - Additional information Additional information: 37-year-old Myranda Storey has a history of cystic fibrosis and she has not really been sick until about 2 years ago. At that time she was admitted in our hospital for pneumonia had improvement on meropenem and vancomycin and was discharged on Levaquin and doxycycline. She indicates that since that time she has had difficulty with her breathing she has been in to see the securities compliance examiner she been in to see ear nose and throat about sinus drainage and sinus infection. She is not currently on antibiotic. She does not take digestive enzymes.Over the past 2 days she has noted palpitations in her chest with a rapid heart rate and she has come to the emergency department this evening because of the rapid heart rate. She arrives with oxygen saturations in the mid 70s. She has been vaccinated against COVID and has never had COVID. Review of Systems Constitutional: denies: Fever Eyes: denies: Decreased vision Ears: denies: Ear pain Nose: reports: Rhinorrhea / runny nose, Congestion, Sinus pressure / pain Throat: denies: Sore throat Cardiac: reports: Palpitations. denies: Chest pain / pressure, Pedal edema, Calf pain Respiratory: reports: Dyspnea, Cough GI: denies: Abdominal Pain, Nausea, Vomiting, Constipation, Diarrhea : denies: Dysuria, Frequency PD PAST MEDICAL HISTORY - Past Medical History Cardiovascular: None Respiratory: Cystic fibrosis, Pneumonia Neuro: None Endocrine/Autoimmune: None GI: None : None, Incontinence Psych: None Musculoskeletal: None Derm: None - Past Surgical History Past Surgical History: Yes Ortho: Other - Present Medications Home Medications: Ambulatory Orders Medication Instructions Recorded Confirmed Lipase/Protease/Amylase [Robby Chamorro 1 cap PO BID #60 capsule. 07/05/20 12,000 Units Capsule] Lipase/Protease/Amylase [Robby Chamorro 2 cap PO TIDWM #180 capsule. 07/05/20 12,000 Units Capsule] Albuterol 2.5 mg INH Q4H PRN #30 neb 07/09/20 Doxycycline [Vibramycin] 100 mg PO BID 6 Days #13 tablet 07/09/20 Lactobacillus Rhamnosus GG 1 cap PO DAILY #7 capsule 07/09/20 [Culturelle] Multivitamin W/Minerals [Theragran 1 tab PO DAILYWM #30 tablet 07/09/20 M] levoFLOXacin [Levaquin] 750 mg PO DAILY #18 tablet 07/09/20 - Allergies Allergies/Adverse Reactions: Allergies Allergy/AdvReac Type Severity Reaction Status Date / Time No Known Drug Allergies Allergy Verified 01/04/23 04:15 - Social History Does the pt smoke?: No Smoking Status: Never smoker Does the pt drink ETOH?: No Does the pt have substance abuse?: No - Immunizations Immunizations are current?: Yes PD ED PE NORMAL - Vitals Vital signs reviewed: Yes (Tachycardic tachypneic and hypoxic) - General General: Alert and oriented X 3, Well developed/nourished, Other (Pale appearing thin female tachypneic at rest) - HEENT HEENT: Atraumatic, PERRL, EOMI - Neck Neck: Supple, no meningeal sign, No bony TTP - Cardiac Cardiac: No murmur, Other (Tachycardic to 125 and regular) - Respiratory Respiratory: Other (Tachypneic at rest with markedly diminished breath sounds and rhonchi bilaterally in all akins) - Abdomen Abdomen: Soft, Non tender - Back Back: No CVA TTP, No spinal TTP - Derm Derm: Normal color, Warm and dry, No rash - Extremities Extremities: No deformity, No edema - Neuro Neuro: Alert and oriented X 3, sales communications manager 2-12 intact, No motor deficit, No sensory deficit, Normal speech Eye Opening: Spontaneous Motor: Obeys Commands Verbal: Oriented GCS Score: 15 - Psych Psych: Normal mood, Normal affect Results - Vitals Vitals: Vital Signs - 24 hr 01/04/23 01/04/23 01/04/23 03:51 03:52 04:00 Temperature 36.8 C Heart Rate 124 H 124 H 130 H Respiratory 32 H 26 H 35 H Rate Blood Pressure 124/87 H 122/80 116/73 O2 Saturation 100 100 75 L If not protocol 3 2 : Oxygen Flow, liters/minute 01/04/23 01/04/23 01/04/23 04:22 04:30 05:00 Temperature Heart Rate 122 H 98 127 H Respiratory 30 H 26 H 16 Rate Blood Pressure 119/79 113/80 108/79 O2 Saturation 100 100 100 If not protocol 2 2 2 : Oxygen Flow, liters/minute 01/04/23 01/04/23 01/04/23 05:30 06:00 06:30 Temperature Heart Rate 126 H 114 H 118 H Respiratory 26 H 25 H 23 Rate Blood Pressure 105/76 105/71 111/70 O2 Saturation 100 100 100 If not protocol 2 2 2 : Oxygen Flow, liters/minute Oxygen O2 Source Nasal cannula Oxygen Flow Rate 2 - EKG (time done) 0405 EKG releavant findings:: EKG personally interpreted by author of this note. Relevant findings are: Rate: Rate (enter#) (121) Rhythm: Sinus tachycardia QRS: Low voltage Ischemia: ST elevation c/w repol Compare to prior EKG: Changed from prior EKG (07-02-2020 rate is faster) Computer interpretation: Agree with computer - Labs Labs: Laboratory Tests 01/04/23 01/04/23 01/04/23 04:23 04:23 04:23 WBC 15.7 H RBC 4.84 Hgb 13.0 Hct 43.2 MCV 89.3 MCH 26.9 L MCHC 30.1 L RDW 13.8 Plt Count 328 MPV 9.8 Neut # (Auto) 12.4 H Lymph # (Auto) 1.4 L Over[place] # (Auto) 1.5 H Eos # (Auto) 0.3 Baso # (Auto) 0.1 Absolute Nucleated RBC 0.00 Band Neuts % (Manual) Not Reportable Abnorm Lymph % (Manual) Not Reportable Nucleated RBC % 0.0 Neutrophils # (Manual) Not Reportable Lymphocytes # (Manual) Not Reportable Monocytes # (Manual) Not Reportable Eosinophils # (Manual) Not Reportable Basophils # (Manual) Not Reportable Differential Comment MANUAL=AUTO DIFF Platelet Estimate NORMAL (130-450,000) RBC Morph Micro Appear NORMAL APPEARANCE Sodium 134 L Potassium 4.4 Chloride 97 L Carbon Dioxide 30 Anion Gap 7.0 BUN 9 Creatinine 0.5 Estimated GFR (MDRD) 140 Glucose 242 H Lactic Acid Calcium 8.0 L Total Bilirubin 0.4 AST 24 ALT 26 Alkaline Phosphatase 67 Troponin I High Sens 24.4 H* Total Protein 6.8 Albumin 3.3 Globulin 3.5 Albumin/Globulin Ratio 0.9 L Lipase 22 Urine Color Urine Clarity Urine pH Ur Specific [place] Urine Protein Urine Glucose (UA) Urine Ketones Urine Occult Blood Urine Nitrite Urine Bilirubin Urine Urobilinogen Ur Leukocyte Esterase Ur Microscopic Review Urine Culture Comments Nasal Adenovirus (PCR) Nasal B. parapertussis DNA (PCR) Nasal Coronavir 229E PCR Nasal Coronavir HKU1 PCR Nasal Coronavir NL63 PCR Nasal Coronavir OC43 PCR Nasal Enterovir/Rhinovir PCR Nasal Influenza B PCR Nasal Influenza A PCR Nasal Parainfluen 1 PCR Nasal Parainfluen 2 PCR Nasal Parainfluen 3 PCR Nasal Parainfluen 4 PCR Nasal RSV (PCR) Nasal B.pertussis DNA PCR Nasal C.pneumoniae (PCR) Gt Human Metapneumo PCR Nasal M.pneumoniae (PCR) Nasal SARS-CoV-2 (PCR) 01/04/23 01/04/23 01/04/23 04:23 04:55 05:03 WBC RBC Hgb Hct MCV MCH MCHC RDW Plt Count MPV Neut # (Auto) Lymph # (Auto) [place] # (Auto) Eos # (Auto) Baso # (Auto) Absolute Nucleated RBC Band Neuts % (Manual) Abnorm Lymph % (Manual) Nucleated RBC % Neutrophils # (Manual) Lymphocytes # (Manual) Monocytes # (Manual) Eosinophils # (Manual) Basophils # (Manual) Differential Comment Platelet Estimate RBC Morph Micro Appear Sodium Potassium Chloride Carbon Dioxide Anion Gap BUN Creatinine Estimated GFR (MDRD) Glucose Lactic Acid 1.4 Calcium Total Bilirubin AST ALT Alkaline Phosphatase Troponin I High Sens Total Protein Albumin Globulin Albumin/Globulin Ratio Lipase Urine Color YELLOW Urine Clarity CLEAR Urine pH 6.0 Ur Specific [place] <=1.005 Urine Protein NEGATIVE Urine Glucose (UA) NEGATIVE Urine Ketones NEGATIVE Urine Occult Blood TRACE-INTA Urine Nitrite NEGATIVE Urine Bilirubin NEGATIVE Urine Urobilinogen 0.2 (NORMAL) Ur Leukocyte Esterase NEGATIVE Ur Microscopic Review NOT INDICATED Urine Culture Comments NOT INDICATED Nasal Adenovirus (PCR) NOT DETECTED Nasal B. parapertussis DNA (PCR) NOT DETECTED Nasal Coronavir 229E PCR NOT DETECTED Nasal Coronavir HKU1 PCR NOT DETECTED Nasal Coronavir NL63 PCR NOT DETECTED Nasal Coronavir OC43 PCR NOT DETECTED Nasal Enterovir/Rhinovir PCR NOT DETECTED Nasal Influenza B PCR NOT DETECTED Nasal Influenza A PCR NOT DETECTED Nasal Parainfluen 1 PCR NOT DETECTED Nasal Parainfluen 2 PCR NOT DETECTED Nasal Parainfluen 3 PCR NOT DETECTED Nasal Parainfluen 4 PCR NOT DETECTED Nasal RSV (PCR) NOT DETECTED Nasal B.pertussis DNA PCR NOT DETECTED Nasal C.pneumoniae (PCR) NOT DETECTED Gt Human Metapneumo PCR NOT DETECTED Nasal M.pneumoniae (PCR) NOT DETECTED Nasal SARS-CoV-2 (PCR) NOT DETECTED 01/04/23 06:11 WBC RBC Hgb Hct MCV MCH MCHC RDW Plt Count MPV Neut # (Auto) Lymph # (Auto) [place] # (Auto) Eos # (Auto) Baso # (Auto) Absolute Nucleated RBC Band Neuts % (Manual) Abnorm Lymph % (Manual) Nucleated RBC % Neutrophils # (Manual) Lymphocytes # (Manual) Monocytes # (Manual) Eosinophils # (Manual) Basophils # (Manual) Differential Comment Platelet Estimate RBC Morph Micro Appear Sodium Potassium Chloride Carbon Dioxide Anion Gap BUN Creatinine Estimated GFR (MDRD) Glucose Lactic Acid Calcium Total Bilirubin AST ALT Alkaline Phosphatase Troponin I High Sens 22.9 H* Total Protein Albumin Globulin Albumin/Globulin Ratio Lipase Urine Color Urine Clarity Urine pH Ur Specific [place] Urine Protein Urine Glucose (UA) Urine Ketones Urine Occult Blood Urine Nitrite Urine Bilirubin Urine Urobilinogen Ur Leukocyte Esterase Ur Microscopic Review Urine Culture Comments Nasal Adenovirus (PCR) Nasal B. parapertussis DNA (PCR) Nasal Coronavir 229E PCR Nasal Coronavir HKU1 PCR Nasal Coronavir NL63 PCR Nasal Coronavir OC43 PCR Nasal Enterovir/Rhinovir PCR Nasal Influenza B PCR Nasal Influenza A PCR Nasal Parainfluen 1 PCR Nasal Parainfluen 2 PCR Nasal Parainfluen 3 PCR Nasal Parainfluen 4 PCR Nasal RSV (PCR) Nasal B.pertussis DNA PCR Nasal C.pneumoniae (PCR) Gt Human Metapneumo PCR Nasal M.pneumoniae (PCR) Nasal SARS-CoV-2 (PCR) - Rads (name of study) chest Relevant Findings:: Prelim report reviewed (Impression: 1. Findings are likely secondary to mild congestive heart failure versus fluid overload with asymmetric pulmonary edema versus superimposed pneumonia in the left lower lobe), EMP independent interpretation of test (On my interpretation there is diffuse interstitial infiltrate worse on the left than the right.) Procedures - IVC sono (time) 0420 Bedside IVC sono: IVC measures (cm) (1.3), IVC collapsed c insp (cm) (complete), Dehydration (est 1 liter deficit) PD Medical Decision Making - ED course Complexity details: reviewed old records, reviewed results, re-evaluated patient, considered differential, d/w patient Reviewed Lab Results: We reviewed a complete blood count which showed an elevated white blood cell count of 15.7 hemoglobin and hematocrit were normal as well as platelets. Chemistries showed a serum sodium of 134 glucose was elevated at 242 the remainder of the electrolytes were unremarkable kidney and liver function were normal her high-sensitivity troponin mildly elevated at 24.4. Lactate was normal at 1.4 urinalysis was unremarkable. A repeat sensitive troponin is 22.4. My interpretation of laboratory results indicates infection with elevated WBC and appearance of infiltrate on CXR. The sensitive troponin elevation is minimal and stable. Social Determinants of Health: This patient appears to have poor access to routine medical care. ED course: Patient arrived to the emergency department tachycardic to 120 and regular tachypneic with a respiratory rate of 35 and hypoxic with a room air saturation in the 70s. She is able to correct her saturation to 100% with nasal cannula oxygen she received a DuoNeb treatment with some improvement in her dyspnea. Despite some volume replacement she remained tachycardic. A chest x-ray demonstrated a diffuse bilateral infiltrate worse in the left base. COVID screen was negative for all viruses and the patient was started on meropenem and Levaquin after obtaining a sputum sample.She is slowly begin to respond to the treatment with improvement in her tachycardia. I asked for the night hospitalist at 0540 and got a reply that they would not be able to see this patient as they were back logged and would not get to her before 7am. I presented this patient to our hospitalist Dr. Perry and she will admit the patient to the hospital for care. Departure - Departure Disposition: [facility] DC/Xfer Clinical Impression: Cystic fibrosis Pneumonia Qualifiers: Pneumonia type: due to unspecified organism Laterality: bilateral Lung location: unspecified part of lung Qualified Code(s): J18.9 - Pneumonia, unspecified organism Condition: Serious
[2023-01-04 04:36] LABS: BASOPHILS # (AUTO) 0.1 10^3/uL (0.0-0.1); BASOPHILS % (AUTO) 0.4 %; EOSINOPHILS # (AUTO) 0.3 10^3/uL (0.0-0.7); EOSINOPHILS % (AUTO) 1.7 %; HCT - HEMATOCRIT 43.2 % (37.0-47.0); LYMPHOCYTES # (AUTO) 1.4 10^3/uL (1.5-3.5); LYMPHOCYTES % (AUTO) 8.9 %; MEAN CORPUSCULAR HEMOGLOBIN 26.9 pg (27.0-31.0); MEAN CORPUSCULAR HGB CONC 30.1 g/dL (32.0-36.0); MEAN CORPUSCULAR VOLUME 89.3 fL (81.0-99.0); MEAN PLATELET VOLUME 9.8 fL (7.9-10.8); MONOCYTES # (AUTO) 1.5 10^3/uL (0.0-1.0); MONOCYTES % (AUTO) 9.6 %; NEUTROPHILS # (AUTO) 12.4 10^3/uL (1.5-6.6); NEUTROPHILS % (AUTO) 79.1 %; PLT - PLATELET COUNT 328 10^3/uL (130-450); RED BLOOD COUNT 4.84 10^6/uL (4.20-5.40); RED CELL DISTRIBUTION WIDTH 13.8 % (12.0-15.0); WHITE BLOOD COUNT 15.7 x10^3/uL (4.8-10.8)
[2023-01-04 04:54] LABS: ALBUMIN 3.3 g/dL (3.2-5.5); ALBUMIN/GLOBULIN RATIO 0.9 (1.0-2.2); BILIRUBIN,TOTAL 0.4 mg/dL (0.2-1.0); CREATININE 0.5 mg/dL (0.4-1.0); POTASSIUM 4.4 mmol/L (3.5-5.0); TOTAL PROTEIN 6.8 g/dL (6.7-8.2)
[2023-01-04 05:13] LABS: BILIRUBIN,URINE NEGATIVE (NEGATIVE); GLUCOSE, URINE (UA) NEGATIVE (NEGATIVE); KETONES,URINE (UA) NEGATIVE (NEGATIVE); LEUKOCYTE ESTERASE, URINE NEGATIVE (NEGATIVE); NITRITE,URINE NEGATIVE (NEGATIVE); OCCULT BLOOD,URINE TRACE-INTA (NEGATIVE); PROTEIN,URINE NEGATIVE (NEGATIVE); UROBILINOGEN,URINE 0.2 (NORMAL) E.U./dL (NORMAL)
[2023-01-04 05:14] LABS: CLARITY,URINE CLEAR (CLEAR)
[2023-01-04 05:23] LABS: DIFFERENTIAL COMMENT MANUAL=AUTO DIFF; PLATELET ESTIMATE, MANUAL NORMAL (130-450,000) (NORMAL); RBC MORPHOLOGY (MULTIPLE) NORMAL APPEARANCE (NORMAL)
[2023-01-04 06:15] LABS: B. PARAPERTUSSIS- RESP PCR PAN NOT DETECTED; B. PERTUSSIS- RESP PCR PANEL NOT DETECTED; C. PNEUMONIAE- RESP PCR PANEL NOT DETECTED; CORONAVIRUS 229E-RESP PCR NOT DETECTED; CORONAVIRUS HKU1-RESP PCR NOT DETECTED; CORONAVIRUS NL63-RESP PCR NOT DETECTED; CORONAVIRUS OC43-RESP PCR NOT DETECTED; HUMAN METAPNEUMOVIRUS NOT DETECTED; INFLUENZA A- RESP PCR PANEL NOT DETECTED; INFLUENZA B - RESP PCR PANEL NOT DETECTED; M. PNEUMONIAE- RESP PCR PANEL NOT DETECTED; PARAINFLUENZA VIRUS 1 NOT DETECTED; PARAINFLUENZA VIRUS 2 NOT DETECTED; PARAINFLUENZA VIRUS 3 NOT DETECTED; PARAINFLUENZA VIRUS 4 NOT DETECTED; RHINOVIRUS/ENTEROVIRUS NOT DETECTED; RSV- RESP PCR PANEL NOT DETECTED; SARS-CoV-2 -RESP PCR PANEL NOT DETECTED
[2023-01-04] MEDS ORDERED: MEROPENEM 1 GM in SODIUM CHLORIDE 0.9% MINIBAG 100 ML IV STA (06:28)
[2023-01-04] MEDS ORDERED: levoFLOXacin 750 MG/150 ML 750 MG/150 ML BAG IV STA (06:29)
--- NOTE | 2023-01-04 07:17 | XRAY Report ---
PROCEDURE: Chest 1 View X-Ray INDICATIONS: dyspnea rhonchi TECHNIQUE: One view of the chest was acquired. COMPARISON: 01/04/2023. FINDINGS: Surgical changes and devices: None. Lungs and pleura: No pleural effusions or pneumothorax. Again noted is diffuse interstitial change w ith a mid and upper lung field predominance with cystic appearing areas in the apices. Findings are n ot significantly changed from the previous study. Findings are consistent with cystic fibrosis. Mediastinum: Mediastinal contours appear normal. Heart size is normal. Bones and chest wall: No suspicious bony lesions. Overlying soft tissues appear unremarkable. IMPRESSION: Chronic changes of cystic fibrosis. No acute infiltrates identified. Findings are concordant with preliminary interpretation provided by [facility]. Reviewed by: Michael Pruitt MD on 01/04/2023 7:16 AM PDT Approved by: Michael Pruitt MD on 01/04/2023 7:16 AM PDT Station ID: [id number]
[2023-01-04] MEDS ORDERED: ZOLPIDEM 5 MG TABLET PO PRN (08:20)
[2023-01-04] MEDS ORDERED: SODIUM CHLORIDE FLUSH 0.9% 10 ML SYRINGE IVP PRN (08:20)
[2023-01-04] MEDS ORDERED: ONDANSETRON 4 MG/2 ML VIAL IVP PRN (08:20)
[2023-01-04] MEDS ORDERED: ACETAMINOPHEN 325 MG TABLET PO PRN (08:20)
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
[2023-01-04] MEDS: SODIUM CHLORIDE FLUSH 0.9% 10 ML SYRINGE IVP SCH ×2 (09:47→16:55)
[2023-01-04] MEDS: SODIUM CHLORIDE 0.9% 1,000 ML IV SCH (09:47)
[2023-01-04] MEDS: ENOXAPARIN 40 MG/0.4 ML SYRINGE SUBQ SCH (09:47)
--- NOTE | 2023-01-04 10:21 | PHARMACY PROGRESS NOTE ---
- Best Possible Medication History Admit Date and Time: 01/04/23 0820 Processed by: Pharmacy Medication History completed: Yes Patient Interview: Completed (Pt only takes supplements) As the person ultimately responsible for medication therapy, providers are able to order a medication from an existing home medication list in [facility] via the "Reconcile Routine" prior to Confirmation of that medication by technical support associate. Such practice is discouraged except when the physician, in their clinical judgment, deems that a medical need exists for a medication without regard to previous use.
[2023-01-04] MEDS: guaiFENesin 600 MG TABLET PO SCH ×2 (11:39→20:37)
[2023-01-04] MEDS ORDERED: IBUPROFEN 400 MG TABLET PO PRN ×2 (13:51→14:23)
[2023-01-04] MEDS ORDERED: SODIUM CHLORIDE 0.9% 500 ML IV ONE (14:51)
[2023-01-04] MEDS: MEROPENEM 1 GM in SODIUM CHLORIDE 0.9% MINIBAG 100 ML IV SCH (16:17)
[2023-01-04] MEDS: SACCHAROMYCES BOULARDII 250 MG CAPSULE PO SCH (16:55)
[2023-01-04] MEDS ORDERED: VANCOMYCIN INJ 1 GM in SODIUM CHLORIDE 0.9% 250 ML IV ONE (18:30)
[2023-01-04] MEDS: ALBUTEROL NEB 2.5 MG/3 ML INH SCH (18:49)
[2023-01-05] MEDS: SODIUM CHLORIDE FLUSH 0.9% 10 ML SYRINGE IVP SCH ×3 (00:05→17:16)
[2023-01-05] MEDS: MEROPENEM 1 GM in SODIUM CHLORIDE 0.9% MINIBAG 100 ML IV SCH ×3 (00:05→16:19)
[2023-01-05] MEDS: SODIUM CHLORIDE 0.9% 1,000 ML IV SCH (01:43)
[2023-01-05 05:15] LABS: BASOPHILS % (AUTO) 0.5 %; EOSINOPHILS % (AUTO) 2.3 %; HGB - HEMOGLOBIN 11.6 g/dL (12.0-16.0); LYMPHOCYTES % (AUTO) 13.1 %; MEAN CORPUSCULAR HEMOGLOBIN 26.9 pg (27.0-31.0); MEAN CORPUSCULAR VOLUME 92.8 fL (81.0-99.0); MEAN PLATELET VOLUME 10.3 fL (7.9-10.8); MONOCYTES % (AUTO) 11.3 %; NEUTROPHILS % (AUTO) 72.5 %; PLT - PLATELET COUNT 285 10^3/uL (130-450); RED BLOOD COUNT 4.31 10^6/uL (4.20-5.40); RED CELL DISTRIBUTION WIDTH 13.9 % (12.0-15.0); WHITE BLOOD COUNT 13.3 x10^3/uL (4.8-10.8)
[2023-01-05 05:23] LABS: ABNORMAL LYMPHS % (MANUAL) 0 %; BAND NEUTROPHILS % (MANUAL) 0 %
[2023-01-05 05:28] LABS: CALCIUM 8.3 mg/dL (8.5-10.3); CREATININE 0.4 mg/dL (0.4-1.0); MAGNESIUM 1.9 mg/dL (1.7-2.8); PHOSPHORUS 3.8 mg/dL (2.5-4.6); POTASSIUM 4.4 mmol/L (3.5-5.0)
[2023-01-05] MEDS ORDERED: VANCOMYCIN INJ 0.75 GM in SODIUM CHLORIDE 0.9% 250 ML IV SCH (06:00)
[2023-01-05 06:29] LABS: BASOPHILS # (MANUAL) 0.1 10^3/uL (0-0.1); BASOPHILS % (MANUAL) 1 %; DIFFERENTIAL COMMENT MANUAL DIFFERENTIAL; EOSINOPHILS # (MANUAL) 0.3 10^3/uL (0-0.7); LYMPHOCYTES # (MANUAL) 2.4 10^3/uL (1.5-3.5); LYMPHOCYTES % (MANUAL) 13 %; MONOCYTES # (MANUAL) 1.3 10^3/uL (0.0-1.0); NEUTROPHILS # (MANUAL) 9.2 10^3/uL (1.5-6.6); PLATELET ESTIMATE, MANUAL NORMAL (130-450,000) (NORMAL); RBC MORPHOLOGY (MULTIPLE) NORMAL APPEARANCE (NORMAL); REACTIVE LYMPHS % (MANUAL) 5 %
[2023-01-05] MEDS ORDERED: levoFLOXacin 750 MG/150 ML 750 MG/150 ML BAG IV SCH (07:00)
[2023-01-05] MEDS: ALBUTEROL NEB 2.5 MG/3 ML INH SCH ×3 (07:09→17:50)
[2023-01-05] MEDS: predniSONE 20 MG TABLET PO SCH (07:54)
[2023-01-05] MEDS: PRENATAL VITAMIN TABLET PO SCH (07:54)
[2023-01-05] MEDS: SACCHAROMYCES BOULARDII 250 MG CAPSULE PO SCH ×2 (07:55→17:15)
[2023-01-05] MEDS: ENOXAPARIN 40 MG/0.4 ML SYRINGE SUBQ SCH (07:55)
[2023-01-05] MEDS: CALCIUM CARB (OYSTER SHELL) 500 MG TABLET PO SCH (10:50)
[2023-01-05] MEDS: LORATADINE 10 MG TABLET PO SCH (10:50)
[2023-01-05] MEDS: CHOLECALCIFEROL 25 MCG TABLET PO SCH (10:50)
--- NOTE | 2023-01-05 11:16 | PROVIDER PROGRESS NOTE ---
Assessment/Plan - Problem List (1) Sepsis Assessment/Plan: She met criteria for sepsis: Tachycardia, oxygen desaturation, elevated white blood count and a pulmonary/respiratory source is documented. Her IVC was interrogated in the ED with POCUS and she received 1 L of fluid. She has been on NS since admission at a slow rate because of orthopnea VS were reviewed. Her heart rate has improved from 120 down to 105 today. Plan: We will continue fluids but not aggressively because of her symptom of orthopnea and radiologist reading of the chest x-ray as possibly containing pulmonary edema Cont to treat with antibiotics and supplemental O2 (2) Acute respiratory failure with hypoxia Conclusion/Plan: Her underlying cystic fibrosis plus overlying pneumonia and possibly volume overload are likely leading to the current hypoxia Plan: We will check a BNP and if elevated, will order an Echo (however today is Friday and we do not have an predictive maintenance technician here until Friday) We will give supplemental O2, to achieve saturations over 90 to 92% We will treat the underlying infection and mobilize secretions from CF Will order aggressive management of the her pulmonary toilet in this patient with CF (3) Community acquired pneumonia Conclusion/Plan: Her sputum culture is growing a gram-positive and gram-negative Plan: Await final identification from sputum and blood culture results Continue with IV meropenem and iv Vanco, based on those last sputum culture results when she was admitted plus a chance of having MRSA Continue probiotics BID Continue aggressive pulmonary toilet in this CF pt Qualifiers: Laterality: left (4) Chronic sinusitis Conclusion/Plan: She has had nasal congestion for nearly 12 months, only treated with nasal sprays to achieve drainage. She has not been on antibiotics for this. She is about to switch to a new ENT that she has not yet met but that specialist has ordered sinus CT imaging which is scheduled here to be done next week on 01/08/23, per my phone call to DI today Plan: Because anaerobes are the most likely culprit, IV meropenem will give her anaerobic coverage. We will also continue with her sinus drainage techniques (she uses NS via nebulizer once a day); will order that BID Will likely do sinus CT while she is here, to assess her infection (5) Cystic fibrosis Conclusion/Plan: As per history. She has had her most trouble over the last 2 years. She had a dev ops engineer but is getting a new one. She reports losing weight which is also common and see if patient I ordered Mucinex 600 twice daily and that dose makes her oversedated I ordered chest PT to be done 3 times daily, and today the (male) RT said she refused it, but the patient said that it was because the RT is a man and she wants to have a female do this with her because she needs to bare her breasts Plan: Continue her usual medications (Mucinex 400 mg daily at home), once her medication list is reconciled by pharmacy. We will stop the Mucinex 600mg and order patient's own med, the 400 mg dose, I discussed this with Pharmacist Yen today Will order a female RN or RT to do aggressive pulmonary toilet with chest Physiotherapy, for managing her sputum Cont beta-agonist Albuterol nebulized scheduled Will order normal saline nebulized to be done twice daily Contunue the short course of glucocorticoids for 5 days, as per up-to-date, since she does have prolonged exp phase on exam (Pred 60 mg starting dose) After completing this course of antibiotics, she should probably be on chronic suppressive antibiotic/anti-inflammatory med Zithromax of 250 mg 3 times a week, as per up-to-date, unless she grows Pseudomonas. She says she is getting a new Activities Leader, somebody that is in the [employer] [facility]. Continue with supplemental calories between meals. Nutrition consult will be ordered re malnutrition. (6) Hyperglycemia Conclusion/Plan: This patient's non-fasting glucose was very elevated at 242, I reviewed labs. There is an entity called CF-related diabetes. It affects almost 50% of adults over age 30 which she is. This is a common cause of nutritional decline in patients with CF and she has lost weight in 2 years she says. Plan: An A1c test was ordered and is received but the result is still pending (the lab does this test in batches) (3) Community acquired pneumonia Qualifiers: Laterality: left - Current Meds Current Meds: Current Medications Generic Name Dose Route Start Last Admin Trade Name Freq PRN Reason Stop Dose Admin Albuterol 2.5 mg 01/04/23 19:00 01/05/23 07:09 Albuterol Neb 2.5 Mg/3 Ml INH 2.5 mg RTTID LILLIE Administration Calcium Carbonate/Glycine 500 mg 01/05/23 09:00 01/05/23 10:50 Calcium Carb (Oyster Shell) 500 Mg Tablet PO 500 mg DAILY LILLIE Administration Cholecalciferol 25 mcg 01/05/23 09:00 01/05/23 10:50 Cholecalciferol 25 Mcg Tablet PO 25 mcg DAILY LILLIE Administration Enoxaparin Sodium 40 mg 01/04/23 09:00 01/05/23 07:55 Enoxaparin 40 Mg/0.4 Ml Syringe SUBQ 40 mg DAILY LILLIE Administration Sodium Chloride 1,000 mls @ 50 mls/hr 01/04/23 09:00 01/05/23 01:43 Normal Saline 0.9% IV 50 mls/hr .Q20H LILLIE Administration Meropenem 1 gm/ Sodium 100 mls @ 200 mls/hr 01/04/23 16:00 01/05/23 08:25 Chloride IV Infused Q8H LILLIE Infusion Ibuprofen 200 mg 01/04/23 14:23 01/05/23 00:04 Ibuprofen 400 Mg Tablet PO 200 mg Q6HR PRN Administration Moderate Pain (Level 4-6) Loratadine 10 mg 01/05/23 09:00 01/05/23 10:50 Loratadine 10 Mg Tablet PO 10 mg DAILY LILLIE Administration Prednisone 60 mg 01/05/23 08:00 01/05/23 07:54 Prednisone 20 Mg Tablet PO 01/07/23 00:01 60 mg DAILYWM LILLIE Administration Multivit/Folic Acid/Iron 1 tab 01/05/23 08:00 01/05/23 07:54 Vitamin Tablet PO 1 tab DAILYWM LILLIE Administration Saccharomyces Boulardii 250 mg 01/04/23 17:00 01/05/23 07:55 Saccharomyces Boulardii 250 Mg Capsule PO 250 mg BIDWM [facility] Administration Sodium Chloride 10 ml 01/04/23 09:00 01/05/23 10:50 Sodium Chloride Flush 0.9% 10 Ml Syringe IVP Not Given 0100,0900,1700 [facility] - Lab Result Fish Bone Diagrams: 01/05/23 04:38 01/05/23 04:38 - Additional Planning My Orders: My Active Orders 01/04/23 Lunch Regular Diet [DIET] 01/04/23 11:30 CUL, RESPIRATORY [RM] Stat 01/04/23 14:23 Ibuprofen [Motrin] 200 mg PO Q6HR PRN 01/04/23 16:00 Meropenem [Merrem] 1 gm Sodium Chloride 0.9% Minibag [Normal Saline 0.9% Minibag] 100 ml IV Q8H 01/04/23 17:00 Saccharomyces Boulardii [Florastor] 250 mg PO BIDWM 01/04/23 17:50 Nebulizer/MDI Tx. [RC] .TID 01/04/23 19:00 Albuterol 2.5 mg INH RTTID 01/05/23 04:38 HEMOGLOBIN A1c% [CHEM] DAILYLAB 01/05/23 08:00 Vitamin [Trinatal Rx 1] 1 tab PO DAILYWM predniSONE [Deltasone] 60 mg PO DAILYWM 01/05/23 09:00 Calcium Carb (Oyster Shell) [Oysco-500] 500 mg PO DAILY Cholecalciferol [Vitamin D3] 25 mcg PO DAILY Loratadine [Claritin] 10 mg PO DAILY 01/05/23 10:17 Nutrition Consult [CONS] Routine 01/05/23 11:10 Miscellaenous Nursing Order [RC] QSHIFT 01/05/23 11:11 SINUS SCREENING WO [CT] Stat 01/05/23 14:00 Vancomycin Inj [Vancomycin] 1 gm Sodium Chloride 0.9% [Normal Saline 0.9%] 250 ml IV Q8H 01/05/23 21:00 Sodium Chloride [Normal Saline] 3 ml INH BID 01/06/23 05:00 BMP - BASIC METABOLIC PANEL [CHEM] DAILYLAB CBC - COMP BLD CT W/AUTO DIFF [HEME] DAILYLAB 01/06/23 05:30 VANCOMYCIN TROUGH [CHEM] Timed 01/07/23 05:00 BMP - BASIC METABOLIC PANEL [CHEM] DAILYLAB CBC - COMP BLD CT W/AUTO DIFF [HEME] DAILYLAB 01/07/23 08:00 predniSONE [Deltasone] 40 mg PO DAILYWM 01/08/23 05:00 CBC - COMP BLD CT W/AUTO DIFF [HEME] DAILYLAB 01/09/23 08:00 predniSONE [Deltasone] 20 mg PO ONCE ONE Subjective - Subjective Patient Reports: Shortness of Breath, Other (Patient feels no better. She is still orthopneic, when she lays on her left side her left nostril plugs up. She requested a bedside commode because she is so short of breath with activity.) Objective Vital Signs: Vital Signs - 24 hr 01/04/23 01/04/23 01/04/23 12:49 13:00 13:02 Temperature 36.8 C 37.3 C Heart Rate Heart Rate [ 125 H Brachial] Respiratory 20 Rate Blood Pressure 112/68 [Left Brachial artery] O2 Saturation 92 91 L 94 If not protocol 2 2 3 : Oxygen Flow, liters/minute 01/04/23 01/04/23 01/04/23 13:25 13:32 14:27 Temperature 37.4 C Heart Rate Heart Rate [ 116 H Brachial] Respiratory 28 H Rate Blood Pressure 115/72 [Left Brachial artery] O2 Saturation 88 L 94 93 If not protocol 5 2 2 : Oxygen Flow, liters/minute 01/04/23 01/04/23 01/04/23 15:55 17:46 18:50 Temperature 37.3 C 37.2 C Heart Rate 115 H Heart Rate [ 116 H 122 H Brachial] Respiratory 26 H 28 H 28 H Rate Blood Pressure 119/63 107/58 L [Left Brachial artery] O2 Saturation 93 90 L If not protocol 2 2 2 : Oxygen Flow, liters/minute 01/04/23 01/04/23 01/04/23 19:50 20:38 22:00 Temperature 37.2 C 36.7 C Heart Rate Heart Rate [ 116 H 120 H Brachial] Respiratory 30 H 26 H Rate Blood Pressure 113/65 112/70 [Left Brachial artery] O2 Saturation 92 93 90 L If not protocol 2 2 2 : Oxygen Flow, liters/minute 01/05/23 01/05/23 01/05/23 00:00 02:00 04:14 Temperature 36.6 C 36.5 C 36.6 C Heart Rate Heart Rate [ 114 H 102 H 102 H Brachial] Respiratory 26 H 22 20 Rate Blood Pressure 115/63 109/64 102/70 [Left Brachial artery] O2 Saturation 91 L 94 93 If not protocol 2 2 2 : Oxygen Flow, liters/minute 01/05/23 01/05/23 01/05/23 07:00 07:11 07:50 Temperature 36.6 C 36.6 C Heart Rate 106 H Heart Rate [ 104 H 102 H Brachial] Respiratory 24 17 26 H Rate Blood Pressure 102/61 103/63 [Left Brachial artery] O2 Saturation 93 98 If not protocol 2 2 4 : Oxygen Flow, liters/minute 04/09/23 07:55 Temperature Heart Rate Heart Rate [ Brachial] Respiratory Rate Blood Pressure [Left Brachial artery] O2 Saturation 95 If not protocol 2 : Oxygen Flow, liters/minute Oxygen O2 Source Nasal cannula Oxygen Flow Rate 2 I&O (Last 24 Hrs): Intake and Output Totals x24h 01/03/23 01/04/23 01/05/23 23:59 23:59 23:59 Intake Total 3014.167 1472.5 Balance 3014.167 1472.5 General: Alert, Oriented x3, Mild distress (Appears tired, pauses midsentence to take a breath.), Other (Thin female (BMI 19)) HEENT: Mucous membr. moist/pink, Other (Wearing O2 N. Sleep) Neck: Supple, No JVD Neuro: Alert, Non Focal Cardiovascular: Regular rate Respiratory: Wheezes (Diminished breath sounds at bases), Rhonchi (Upper lung akins) Extremities: No clubbing, No edema, No tenderness/swelling - Results Results: Laboratory Results WBC 13.3 x10^3/uL (4.8-10.8) H 01/05/23 04:38 RBC 4.31 10^6/uL (4.20-5.40) 01/05/23 04:38 Hgb 11.6 g/dL (12.0-16.0) L 01/05/23 04:38 Hct 40.0 % (37.0-47.0) 01/05/23 04:38 MCV 92.8 fL (81.0-99.0) 01/05/23 04:38 MCH 26.9 pg (27.0-31.0) L 01/05/23 04:38 MCHC 29.0 g/dL (32.0-36.0) L 01/05/23 04:38 RDW 13.9 % (12.0-15.0) 01/05/23 04:38 Plt Count 285 10^3/uL (130-450) 01/05/23 04:38 MPV 10.3 fL (7.9-10.8) 01/05/23 04:38 Neut # (Auto) Not Reportable 01/05/23 04:38 Lymph # (Auto) Not Reportable 01/05/23 04:38 Edwards # (Auto) Not Reportable 01/05/23 04:38 Eos # (Auto) Not Reportable 01/05/23 04:38 Baso # (Auto) Not Reportable 01/05/23 04:38 Absolute Nucleated RBC Not Reportable 01/05/23 04:38 Total Counted 100 01/05/23 04:38 Band Neuts % (Manual) 0 % (0-10) 01/05/23 04:38 Reactive Lymphs % (Man) 5 % 01/05/23 04:38 Abnorm Lymph % (Manual) 0 % 01/05/23 04:38 Nucleated RBC % Not Reportable 01/05/23 04:38 Neutrophils # (Manual) 9.2 10^3/uL (1.5-6.6) H 01/05/23 04:38 Lymphocytes # (Manual) 2.4 10^3/uL (1.5-3.5) 01/05/23 04:38 Monocytes # (Manual) 1.3 10^3/uL (0.0-1.0) H 01/05/23 04:38 Eosinophils # (Manual) 0.3 10^3/uL (0-0.7) 01/05/23 04:38 Basophils # (Manual) 0.1 10^3/uL (0-0.1) 01/05/23 04:38 Differential Comment MANUAL DIFFERENTIAL 01/05/23 04:38 Platelet Estimate NORMAL (130-450,000) (NORMAL) 01/05/23 04:38 RBC Morph Micro Appear NORMAL APPEARANCE (NORMAL) 01/05/23 04:38 Sodium 139 mmol/L (135-145) 01/05/23 04:38 Potassium 4.4 mmol/L (3.5-5.0) 01/05/23 04:38 Chloride 100 mmol/L (101-111) L 01/05/23 04:38 Carbon Dioxide 33 mmol/L (21-32) H 01/05/23 04:38 Anion Gap 6.0 (6-13) 01/05/23 04:38 BUN 7 mg/dL (6-20) 01/05/23 04:38 Creatinine 0.4 mg/dL (0.4-1.0) 01/05/23 04:38 Estimated GFR (MDRD) 181 (>89) 01/05/23 04:38 Glucose 99 mg/dL (70-100) 01/05/23 04:38 Lactic Acid 1.4 mmol/L (0.5-2.2) 01/04/23 04:23 Calcium 8.3 mg/dL (8.5-10.3) L 01/05/23 04:38 Phosphorus 3.8 mg/dL (2.5-4.6) 01/05/23 04:38 Magnesium 1.9 mg/dL (1.7-2.8) 01/05/23 04:38 Total Bilirubin 0.4 mg/dL (0.2-1.0) 01/04/23 04:23 AST 24 IU/L (10-42) 01/04/23 04:23 ALT 26 IU/L (10-60) 01/04/23 04:23 Alkaline Phosphatase 67 IU/L (42-121) 01/04/23 04:23 Troponin I High Sens 22.9 ng/L (2.3-14.8) H* 01/04/23 06:11 Total Protein 6.8 g/dL (6.7-8.2) 01/04/23 04:23 Albumin 3.3 g/dL (3.2-5.5) 01/04/23 04:23 Globulin 3.5 g/dL (2.1-4.2) 01/04/23 04:23 Albumin/Globulin Ratio 0.9 (1.0-2.2) L 01/04/23 04:23 Lipase 22 U/L (22-51) 01/04/23 04:23 Urine Color YELLOW 01/04/23 04:55 Urine Clarity CLEAR (CLEAR) 01/04/23 04:55 Urine pH 6.0 PH (5.0-7.5) 01/04/23 04:55 Ur Specific Finley <=1.005 (1.002-1.030) 01/04/23 04:55 Urine Protein NEGATIVE mg/dL (NEGATIVE) 01/04/23 04:55 Urine Glucose (UA) NEGATIVE mg/dL (NEGATIVE) 01/04/23 04:55 Urine Ketones NEGATIVE mg/dL (NEGATIVE) 01/04/23 04:55 Urine Occult Blood TRACE-INTA (NEGATIVE) 01/04/23 04:55 Urine Nitrite NEGATIVE (NEGATIVE) 01/04/23 04:55 Urine Bilirubin NEGATIVE (NEGATIVE) 01/04/23 04:55 Urine Urobilinogen 0.2 (NORMAL) E.U./dL (NORMAL) 01/04/23 04:55 Ur Leukocyte Esterase NEGATIVE (NEGATIVE) 01/04/23 04:55 Ur Microscopic Review NOT INDICATED 04 04:55 Urine Culture Comments NOT INDICATED 01/04/23 04:55 Nasal Adenovirus (PCR) NOT DETECTED 01/04/23 05:03 Nasal B. parapertussis DNA (PCR) NOT DETECTED 01/04/23 05:03 Nasal Coronavir 229E PCR NOT DETECTED 01/04/23 05:03 Nasal Coronavir HKU1 PCR NOT DETECTED 01/04/23 05:03 Nasal Coronavir NL63 PCR NOT DETECTED 01/04/23 05:03 Nasal Coronavir OC43 PCR NOT DETECTED 01/04/23 05:03 Nasal Enterovir/Rhinovir PCR NOT DETECTED 01/04/23 05:03 Nasal Influenza B PCR NOT DETECTED 01/04/23 05:03 Nasal Influenza A PCR NOT DETECTED 01/04/23 05:03 Nasal Parainfluen 1 PCR NOT DETECTED 01/04/23 05:03 Nasal Parainfluen 2 PCR NOT DETECTED 01/04/23 05:03 Nasal Parainfluen 3 PCR NOT DETECTED 01/04/23 05:03 Nasal Parainfluen 4 PCR NOT DETECTED 01/04/23 05:03 Nasal RSV (PCR) NOT DETECTED 01/04/23 05:03 Nasal B.pertussis DNA PCR NOT DETECTED 01/04/23 05:03 Nasal C.pneumoniae (PCR) NOT DETECTED 01/04/23 05:03 Gt Human Metapneumo PCR NOT DETECTED 01/04/23 05:03 Nasal M.pneumoniae (PCR) NOT DETECTED 01/04/23 05:03 Nasal SARS-CoV-2 (PCR) NOT DETECTED 01/04/23 05:03 Sepsis Event Note (H) - Evaluation Current Stage of Sepsis: Sepsis Possible source of Sepsis: positive: Pulmonary - Sepsis Criteria Sepsis Criteria: Recorded Heart Rate greater than 90 bpm, Recorded Respiratory Rate greater than 20, Respiratory: Increasing oxygen requirements, WBC count greater than 12,000 or less than 4000
--- NOTE | 2023-01-05 12:21 | CT Report ---
PROCEDURE: SINUS SCREENING WO INDICATIONS: Chronc sinustis/cystic fibrosis pt/poss purulnt TECHNIQUE: Noncontrast 3.0 mm axial images acquired from the frontal sinuses to the mid-sella, with coronal and sagittal reformats. For radiation dose reduction, the following was used: automated exposure control , adjustment of mA and/or kV according to patient size. COMPARISON: None. FINDINGS: Image quality: Excellent. Maxillary Sinuses: There is complete opacification. There is chronic periosteal remodeling. Findings suggestive of cysts with removal of the ostiomeatal complexes similar to prior exam. Ethmoid Air Cells: Mild mucosal thickening in the ethmoid air cells. Sphenoid Sinuses: Atrophic in appearance. Mild mucosal thickening. Frontal Sinuses: Not visualized, normal congenital variant. Miscellaneous: Visualized intra-orbital contents are normal. No bruna bullosa. Moderate rightward septal deviation. IMPRESSION: Findings consistent with chronic sinusitis with opacification of the maxillary sinuses and periosteal remodeling. Additional mild mucosal thickening in the ethmoid air cells and sphenoid sinuses. Reviewed by: Roosevelt Nicole DO on 01/05/2023 11:20 AM [facility] Approved by: Roosevelt Nicole DO on 01/05/2023 11:20 AM [facility] Station ID: [id number]
[2023-01-05] MEDS: VANCOMYCIN INJ 1 GM in SODIUM CHLORIDE 0.9% 250 ML IV SCH ×2 (13:59→21:52)
[2023-01-05] MEDS: GUAIFENESIN 400 MG PO SCH ×2 (14:07→17:15)
[2023-01-05] MEDS ORDERED: GUAIFENESIN 400 MG PO PRN (19:00)
[2023-01-05] MEDS: SODIUM CHLORIDE INHALATION 3 ML NEB INH SCH (22:07)
[2023-01-06] MEDS: MEROPENEM 1 GM in SODIUM CHLORIDE 0.9% MINIBAG 100 ML IV SCH ×4 (00:06→23:53)
[2023-01-06] MEDS: SODIUM CHLORIDE FLUSH 0.9% 10 ML SYRINGE IVP SCH ×4 (00:11→23:54)
[2023-01-06 05:59] LABS: BASOPHILS % (AUTO) 0.3 %; HCT - HEMATOCRIT 36.5 % (37.0-47.0); HGB - HEMOGLOBIN 10.7 g/dL (12.0-16.0); MEAN CORPUSCULAR HEMOGLOBIN 27.1 pg (27.0-31.0); MEAN CORPUSCULAR HGB CONC 29.3 g/dL (32.0-36.0); MEAN CORPUSCULAR VOLUME 92.4 fL (81.0-99.0); MEAN PLATELET VOLUME 9.8 fL (7.9-10.8); MONOCYTES % (AUTO) 8.8 %; NEUTROPHILS % (AUTO) 79.6 %; PLT - PLATELET COUNT 277 10^3/uL (130-450); RED BLOOD COUNT 3.95 10^6/uL (4.20-5.40); RED CELL DISTRIBUTION WIDTH 13.5 % (12.0-15.0); WHITE BLOOD COUNT 20.3 x10^3/uL (4.8-10.8)
[2023-01-06 06:01] LABS: ABNORMAL LYMPHS % (MANUAL) 0 %; BAND NEUTROPHILS % (MANUAL) 0 %
[2023-01-06] MEDS: ALBUTEROL NEB 2.5 MG/3 ML INH SCH ×3 (06:04→18:01)
[2023-01-06 06:07] LABS: CALCIUM 8.4 mg/dL (8.5-10.3); CREATININE 0.4 mg/dL (0.4-1.0); POTASSIUM 4.3 mmol/L (3.5-5.0)
[2023-01-06 06:08] LABS: VANCOMYCIN,TROUGH 14.2 ug/mL (10.0-20.0)
[2023-01-06 06:12] LABS: LYMPHOCYTES % (MANUAL) 10 %; MONOCYTES # (MANUAL) 1.2 10^3/uL (0.0-1.0); NEUTROPHILS # (MANUAL) 17.1 10^3/uL (1.5-6.6)
[2023-01-06 06:13] LABS: DIFFERENTIAL COMMENT MANUAL DIFFERENTIAL; PLATELET ESTIMATE, MANUAL NORMAL (130-450,000) (NORMAL); PLATELET MORPHOLOGY NORMAL APPEARANCE (NORMAL); RBC MORPHOLOGY (MULTIPLE) NORMAL APPEARANCE (NORMAL); WBC MORPHOLOGY (MULTIPLE) NORMAL APPEARANCE (NORMAL)
[2023-01-06] MEDS: VANCOMYCIN INJ 1 GM in SODIUM CHLORIDE 0.9% 250 ML IV SCH ×3 (06:33→21:56)
[2023-01-06] MEDS: SODIUM CHLORIDE 0.9% 1,000 ML IV SCH (06:34)
--- NOTE | 2023-01-06 08:27 | PROVIDER PROGRESS NOTE ---
Assessment/Plan - Problem List (1) Sepsis Assessment/Plan: She met criteria for sepsis: Tachycardia, oxygen desaturation, elevated white blood count and a pulmonary/respiratory source is documented. Her IVC was interrogated in the ED with POCUS and she received 1 L of fluid. She has been on NS since admission at a slow rate because of orthopnea VS were reviewed. Her heart rate has improved from 120 down to 105 yesterday and today. Plan: We will continue fluids but not aggressively because of her symptom of orthopnea and radiologist reading of the chest x-ray as possibly containing pulmonary edema Cont to treat with antibiotics and supplemental O2 (2) Acute respiratory failure with hypoxia Conclusion/Plan: Her underlying cystic fibrosis plus overlying pneumonia and possibly volume overload are likely leading to the current hypoxia Plan: We will check a BNP and if elevated, will order an Echo (however today is Friday and we do not have an equine pharmacology technician here until Friday) We will give supplemental O2, to achieve saturations over 90 to 92% We will treat the underlying infection and mobilize secretions from CF Will order aggressive management of the her pulmonary toilet in this patient with CF Will order an Echo, given the persistent orthopnea (today is Fri and we have no Switch Operators Supervisor here until ). (3) Community acquired pneumonia Conclusion/Plan: Her sputum culture is growing a gram-positive and gram-negative Plan: Await final identification from sputum and blood culture results Continue with IV meropenem and iv Vanco, based on those last sputum culture results when she was admitted plus a chance of having MRSA Continue probiotics BID Continue aggressive pulmonary toilet in this CF pt Qualifiers: Laterality: left (4) Chronic sinusitis Conclusion/Plan: She has had nasal congestion for nearly 12 months, only treated with nasal sprays to achieve drainage. She has not been on antibiotics for this. She is about to switch to a new ENT that she has not yet met but that specialist ordered sinus CT imaging which was scheduled 01/08/23. She got a sinus CT here on 01/05 and it showed complete opacification of the maxillary sinuses and oseal changes that do suggest chronic inflammation. Since anaerobic bacteria are the most likely culprit, IV meropenem was started which will give her anaerobic coverage. Plan: We will also continue with her sinus drainage techniques (she uses NS via nebulizer once a day); will order that BID Continue iv Merram (5) Cystic fibrosis Conclusion/Plan: As per history. She has had her most trouble over the last 2 years. 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 She reports losing weight which is also common and see if patient I ordered Mucinex 600 twice daily and that dose makes her oversedated I ordered chest PT to be done 3 times daily, and today the (male) RT said she refused it, but the patient said that it was because the RT is a man and she wants to have a female do this with her because she needs to bare her breasts Plan: Continue her usual medications (Mucinex 400 mg daily at home), once her medication list is reconciled by pharmacy. We will stop the Mucinex 600mg and order patient's own med, the 400 mg dose, I discussed this with Pharmacist Yen today Will order a female RN or RT to do aggressive pulmonary toilet with chest P hysiotherapy, for managing her sputum Cont beta-agonist Albuterol nebulized scheduled Will order normal saline nebulized to be done twice daily Continue the short course of glucocorticoids for 5 days, as per up-to-date, since she does have prolonged exp phase on exam (Pred 60 mg starting dose) After completing this course of antibiotics, she should probably be on chronic suppressive antibiotic/anti-inflammatory med Zithromax of 250 mg 3 times a week, as per up-to-date, unless she grows Pseudomonas. She says she is getting a new Bleaching Supervisor, somebody that is in the [place] network. Continue with supplemental calories between meals. Nutrition consult will be ordered re malnutrition. (6) Hyperglycemia Conclusion/Plan: This patient's non-fasting glucose was very elevated at 242, I reviewed labs. There is an entity called CF-related diabetes. It affects almost 50% of adults over age 30 which she is. This is a common cause of nutritional decline in patients with CF and she has lost weight in 2 years she says. Plan: An A1c test was ordered and is received but the result is still pending (the lab does this test in batches) - Current Meds Current Meds: Current Medications Generic Name Dose Route Start Last Admin Trade Name Freq PRN Reason Stop Dose Admin Albuterol 2.5 mg 01/04/23 19:00 01/06/23 06:04 Albuterol Neb 2.5 Mg/3 Ml INH 2.5 mg RTTID LILLIE Administration Calcium Carbonate/Glycine 500 mg 01/05/23 09:00 01/05/23 10:50 Calcium Carb (Oyster Shell) 500 Mg Tablet PO 500 mg DAILY LILLIE Administration Cholecalciferol 25 mcg 01/05/23 09:00 01/05/23 10:50 Cholecalciferol 25 Mcg Tablet PO 25 mcg DAILY LILLIE Administration Enoxaparin Sodium 40 mg 01/04/23 09:00 01/05/23 07:55 Enoxaparin 40 Mg/0.4 Ml Syringe SUBQ 40 mg DAILY LILLIE Administration Sodium Chloride 1,000 mls @ 50 mls/hr 01/04/23 09:00 01/06/23 06:34 Normal Saline 0.9% IV 50 mls/hr .Q20H LILLIE Administration Meropenem 1 gm/ Sodium 100 mls @ 200 mls/hr 01/04/23 16:00 01/06/23 00:36 Chloride IV Infused Q8H LILLIE Infusion Vancomycin HCl 1 gm/ Sodium 250 mls @ 167 mls/hr 01/05/23 14:00 01/06/23 06:33 Chloride IV 167 mls/hr Q8H LILLIE Administration Ibuprofen 200 mg 01/04/23 14:23 01/05/23 00:04 Ibuprofen 400 Mg Tablet PO 200 mg Q6HR PRN Administration Moderate Pain (Level 4-6) Loratadine 10 mg 01/05/23 09:00 01/05/23 10:50 Loratadine 10 Mg Tablet PO 10 mg DAILY LILLIE Administration Guaifenesin 400mg 1 each 01/05/23 19:00 01/06/23 06:26 Tab PO 1 each Q4H PRN Administration Cough Prednisone 60 mg 01/05/23 08:00 01/05/23 07:54 Prednisone 20 Mg Tablet PO 01/07/23 00:01 60 mg DAILYWM LILLIE Administration Multivit/Folic Acid/Iron 1 tab 01/05/23 08:00 01/05/23 07:54 Vitamin Tablet PO 1 tab DAILYWM LILLIE Administration Saccharomyces Boulardii 250 mg 01/04/23 17:00 01/05/23 17:15 Saccharomyces Boulardii 250 Mg Capsule PO 250 mg BIDWM LILLIE Administration Sodium Chloride 10 ml 01/04/23 09:00 01/06/23 00:11 Sodium Chloride Flush 0.9% 10 Ml Syringe IVP Not Given 0100,0900,1700 [facility] Sodium Chloride 3 ml 01/05/23 21:00 01/05/23 22:07 Sodium Chloride Inhalation 3 Ml Neb INH Not Given BID LILLIE - Lab Result Fish Bone Diagrams: 01/06/23 05:51 01/06/23 05:51 - Additional Planning My Orders: My Active Orders 01/05/23 08:00 Vitamin [Trinatal Rx 1] 1 tab PO DAILYWM predniSONE [Deltasone] 60 mg PO DAILYWM 01/05/23 09:00 Calcium Carb (Oyster Shell) [Oysco-500] 500 mg PO DAILY Cholecalciferol [Vitamin D3] 25 mcg PO DAILY Loratadine [Claritin] 10 mg PO DAILY 01/05/23 10:17 Nutrition Consult [CONS] Routine 01/05/23 11:10 Miscellaenous Nursing Order [RC] QSHIFT 01/05/23 14:00 Vancomycin Inj [Vancomycin] 1 gm Sodium Chloride 0.9% [Normal Saline 0.9%] 250 ml IV Q8H 01/05/23 19:00 Patient Own Med [Patient Own Medication] 1 each PO Q4H PRN 01/05/23 21:00 Sodium Chloride [Normal Saline] 3 ml INH BID 01/07/23 05:00 BMP - BASIC METABOLIC PANEL [CHEM] DAILYLAB CBC - COMP BLD CT W/AUTO DIFF [HEME] DAILYLAB MAGNESIUM [CHEM] DAILYLAB 01/07/23 08:00 predniSONE [Deltasone] 40 mg PO DAILYWM 01/08/23 05:00 CBC - COMP BLD CT W/AUTO DIFF [HEME] DAILYLAB 01/09/23 08:00 predniSONE [Deltasone] 20 mg PO ONCE ONE Objective Vital Signs: Vital Signs - 24 hr 01/05/23 01/05/23 01/05/23 12:27 14:05 14:10 Temperature 36.5 C Heart Rate Heart Rate [ 103 H Brachial] Respiratory 24 Rate Blood Pressure 110/73 [Left Brachial artery] Blood Pressure [Right Brachial artery] O2 Saturation 92 90 L 92 If not protocol 3 2 4 : Oxygen Flow, liters/minute 01/05/23 01/05/23 01/05/23 14:24 14:39 15:46 Temperature 36.6 C Heart Rate 97 Heart Rate [ 104 H Brachial] Respiratory 19 24 Rate Blood Pressure [Left Brachial artery] Blood Pressure 110/63 [Right Brachial artery] O2 Saturation 93 93 If not protocol 2 2 2 : Oxygen Flow, liters/minute 01/05/23 01/05/23 01/05/23 17:51 20:17 22:00 Temperature 36.7 C Heart Rate 112 H Heart Rate [ 102 H Brachial] Respiratory 24 16 Rate Blood Pressure [Left Brachial artery] Blood Pressure 105/64 [Right Brachial artery] O2 Saturation 94 If not protocol 2 2 2 : Oxygen Flow, liters/minute 01/06/23 01/06/23 01/06/23 00:03 05:00 06:05 Temperature 36.5 C 36.8 C Heart Rate 94 Heart Rate [ 100 102 H Brachial] Respiratory 16 18 22 Rate Blood Pressure [Left Brachial artery] Blood Pressure 112/68 102/65 [Right Brachial artery] O2 Saturation 95 91 L If not protocol 2 2 2 : Oxygen Flow, liters/minute Oxygen O2 Source Nasal cannula Oxygen Flow Rate 2 I&O (Last 24 Hrs): Intake and Output Totals x24h 01/04/23 01/05/23 01/06/23 23:59 23:59 23:59 Intake Total 3014.167 3955.0 404.5 Balance 3014.167 3955.0 404.5 - Results Results: Laboratory Results WBC 20.3 x10^3/uL (4.8-10.8) H 01/06/23 05:51 RBC 3.95 10^6/uL (4.20-5.40) L 01/06/23 05:51 Hgb 10.7 g/dL (12.0-16.0) L 01/06/23 05:51 Hct 36.5 % (37.0-47.0) L 01/06/23 05:51 MCV 92.4 fL (81.0-99.0) 01/06/23 05:51 MCH 27.1 pg (27.0-31.0) 01/06/23 05:51 MCHC 29.3 g/dL (32.0-36.0) L 01/06/23 05:51 RDW 13.5 % (12.0-15.0) 01/06/23 05:51 Plt Count 277 10^3/uL (130-450) 01/06/23 05:51 MPV 9.8 fL (7.9-10.8) 01/06/23 05:51 Neut # (Auto) Not Reportable 01/06/23 05:51 Lymph # (Auto) Not Reportable 01/06/23 05:51 Mower # (Auto) Not Reportable 01/06/23 05:51 Eos # (Auto) Not Reportable 01/06/23 05:51 Baso # (Auto) Not Reportable 01/06/23 05:51 Absolute Nucleated RBC Not Reportable 01/06/23 05:51 Total Counted 100 01/06/23 05:51 Band Neuts % (Manual) 0 % (0-10) 01/06/23 05:51 Reactive Lymphs % (Man) 5 % 01/05/23 04:38 Abnorm Lymph % (Manual) 0 % 01/06/23 05:51 Nucleated RBC % Not Reportable 01/06/23 05:51 Neutrophils # (Manual) 17.1 10^3/uL (1.5-6.6) H 01/06/23 05:51 Lymphocytes # (Manual) 2.0 10^3/uL (1.5-3.5) 01/06/23 05:51 Monocytes # (Manual) 1.2 10^3/uL (0.0-1.0) H 01/06/23 05:51 Eosinophils # (Manual) 0.0 10^3/uL (0-0.7) 01/06/23 05:51 Basophils # (Manual) 0.0 10^3/uL (0-0.1) 01/06/23 05:51 Differential Comment MANUAL DIFFERENTIAL 01/06/23 05:51 WBC Morphology NORMAL APPEARANCE (NORMAL) 01/06/23 05:51 Platelet Estimate NORMAL (130-450,000) (NORMAL) 01/06/23 05:51 Platelet Morphology NORMAL APPEARANCE (NORMAL) 01/06/23 05:51 RBC Morph Micro Appear NORMAL APPEARANCE (NORMAL) 01/06/23 05:51 Sodium 141 mmol/L (135-145) 01/06/23 05:51 Potassium 4.3 mmol/L (3.5-5.0) 01/06/23 05:51 Chloride 102 mmol/L (101-111) 01/06/23 05:51 Carbon Dioxide 32 mmol/L (21-32) 01/06/23 05:51 Anion Gap 7.0 (6-13) 01/06/23 05:51 BUN 9 mg/dL (6-20) 01/06/23 05:51 Creatinine 0.4 mg/dL (0.4-1.0) 01/06/23 05:51 Estimated GFR (MDRD) 181 (>89) 01/06/23 05:51 Glucose 87 mg/dL (70-100) 01/06/23 05:51 Lactic Acid 1.4 mmol/L (0.5-2.2) 01/04/23 04:23 Calcium 8.4 mg/dL (8.5-10.3) L 01/06/23 05:51 Phosphorus 3.8 mg/dL (2.5-4.6) 01/05/23 04:38 Magnesium 1.9 mg/dL (1.7-2.8) 01/05/23 04:38 Total Bilirubin 0.4 mg/dL (0.2-1.0) 01/04/23 04:23 AST 24 IU/L (10-42) 01/04/23 04:23 ALT 26 IU/L (10-60) 01/04/23 04:23 Alkaline Phosphatase 67 IU/L (42-121) 01/04/23 04:23 Troponin I High Sens 22.9 ng/L (2.3-14.8) H* 01/04/23 06:11 Total Protein 6.8 g/dL (6.7-8.2) 01/04/23 04:23 Albumin 3.3 g/dL (3.2-5.5) 01/04/23 04:23 Globulin 3.5 g/dL (2.1-4.2) 01/04/23 04:23 Albumin/Globulin Ratio 0.9 (1.0-2.2) L 01/04/23 04:23 Lipase 22 U/L (22-51) 01/04/23 04:23 Urine Color YELLOW 01/04/23 04:55 Urine Clarity CLEAR (CLEAR) 01/04/23 04:55 Urine pH 6.0 PH (5.0-7.5) 01/04/23 04:55 Ur Specific [place] <=1.005 (1.002-1.030) 01/04/23 04:55 Urine Protein NEGATIVE mg/dL (NEGATIVE) 01/04/23 04:55 Urine Glucose (UA) NEGATIVE mg/dL (NEGATIVE) 01/04/23 04:55 Urine Ketones NEGATIVE mg/dL (NEGATIVE) 01/04/23 04:55 Urine Occult Blood TRACE-INTA (NEGATIVE) 01/04/23 04:55 Urine Nitrite NEGATIVE (NEGATIVE) 01/04/23 04:55 Urine Bilirubin NEGATIVE (NEGATIVE) 01/04/23 04:55 Urine Urobilinogen 0.2 (NORMAL) E.U./dL (NORMAL) 01/04/23 04:55 Ur Leukocyte Esterase NEGATIVE (NEGATIVE) 01/04/23 04:55 Ur Microscopic Review NOT INDICATED 01/04/23 04:55 Urine Culture Comments NOT INDICATED 01/04/23 04:55 Nasal Adenovirus (PCR) NOT DETECTED 01/04/23 05:03 Nasal B. parapertussis DNA (PCR) NOT DETECTED 01/04/23 05:03 Nasal Coronavir 229E PCR NOT DETECTED 01/04/23 05:03 Nasal Coronavir HKU1 PCR NOT DETECTED 01/04/23 05:03 Nasal Coronavir NL63 PCR NOT DETECTED 01/04/23 05:03 Nasal Coronavir OC43 PCR NOT DETECTED 01/04/23 05:03 Nasal Enterovir/Rhinovir PCR NOT DETECTED 01/04/23 05:03 Nasal Influenza B PCR NOT DETECTED 01/04/23 05:03 Nasal Influenza A PCR NOT DETECTED 01/04/23 05:03 Nasal Parainfluen 1 PCR NOT DETECTED 01/04/23 05:03 Nasal Parainfluen 2 PCR NOT DETECTED 01/04/23 05:03 Nasal Parainfluen 3 PCR NOT DETECTED 01/04/23 05:03 Nasal Parainfluen 4 PCR NOT DETECTED 01/04/23 05:03 Nasal RSV (PCR) NOT DETECTED 01/04/23 05:03 Nasal B.pertussis DNA PCR NOT DETECTED 01/04/23 05:03 Nasal C.pneumoniae (PCR) NOT DETECTED 01/04/23 05:03 Gt Human Metapneumo PCR NOT DETECTED 01/04/23 05:03 Nasal M.pneumoniae (PCR) NOT DETECTED 01/04/23 05:03 Nasal SARS-CoV-2 (PCR) NOT DETECTED 01/04/23 05:03 Last Dose Date 01/05/23 01/06/23 05:51 Last Dose Time 232101/06/23 05:51 Vancomycin Trough 14.2 ug/mL (10.0-20.0) 01/06/23 05:51 Sepsis Event Note (H) - Evaluation Current Stage of Sepsis: Sepsis Possible source of Sepsis: positive: Pulmonary - Sepsis Criteria Sepsis Criteria: Recorded Heart Rate greater than 90 bpm, Recorded Respiratory R ate greater than 20, Respiratory: Increasing oxygen requirements, WBC count greater than 12,000 or less than 4000
[2023-01-06] MEDS: CALCIUM CARB (OYSTER SHELL) 500 MG TABLET PO SCH (08:28)
[2023-01-06] MEDS: CHOLECALCIFEROL 25 MCG TABLET PO SCH (08:28)
[2023-01-06] MEDS: LORATADINE 10 MG TABLET PO SCH (08:28)
[2023-01-06] MEDS: predniSONE 20 MG TABLET PO SCH (08:28)
[2023-01-06] MEDS: PRENATAL VITAMIN TABLET PO SCH (08:29)
[2023-01-06] MEDS: SACCHAROMYCES BOULARDII 250 MG CAPSULE PO SCH ×2 (08:29→17:01)
[2023-01-06] MEDS: ENOXAPARIN 40 MG/0.4 ML SYRINGE SUBQ SCH (08:29)
[2023-01-06] MEDS ORDERED: GUAIFENESIN 400 MG PO PRN (08:41)
[2023-01-06] MEDS: SODIUM CHLORIDE INHALATION 3 ML NEB INH SCH ×2 (09:18→18:03)
[2023-01-06 13:36] LABS: ESTIMATED AVERAGE GLUCOSE 126 mg/dL (70-100)
--- NOTE | 2023-01-06 15:21 | PROVIDER PROGRESS NOTE ---
<Jenny Coombs - Last Filed: 01/06/23 18:41> Subjective - Prog Note Date Prog Note Date: 01/06/23 Prog Note Time: 15:19 - Subjective Pt reports feeling: Improved (Patient reports still having post nasal drip that is interfering with her resting and sleeping positions.) Subjective: Patient reports she still has post nasal drip and sinus drainage that is negatively impacting her resting and sleeping positions. She still has to have the bed at a 90 degree angle. However, she states her condition is improving. She no longer has a headache and is tolerating the breathing treatments well. She reports that her 'metabolism has decreased' since coming to the hospital and she is eating less often than her baseline. Objective - Vital Signs/Intake & Output Reviewed Vital Signs: Yes Vital Signs: Vital Signs x48h Temp Pulse Pulse Resp BP Pulse Ox O2 Flow Rate 01/06/23 11:48 36.5 C 96 18 114/60 92 2 01/06/23 09:19 105 H 24 2 01/06/23 08:47 36.3 C L 103 H 18 106/52 L 93 2 Intake & Output: Intake & Output 01/03/23 01/04/23 01/05/23 01/06/23 23:59 23:59 23:59 23:59 Intake Total 3014.167 3955.0 2346.5 Balance 3014.167 3955.0 2346.5 - Objective General Appearance: positive: No acute distress Eyes Bilateral: positive: Normal inspection ENT: positive: Other (Mucous membranes moist and pink. Wearing O2 nasal) Neck: positive: No JVD Respiratory: positive: Other (Crackles throughout all lung akins) Cardiovascular: positive: Regular rate & rhythm Skin: positive: No rash, Warm, Dry, Pallor Extremities: positive: No pedal edema, Other (No clubbing.) Neurologic/Psychiatric: positive: Oriented x3, Mood/affect nml - Lab Results Fish Bones: 01/06/23 05:51 01/06/23 05:51 Other Labs: Lab Results x24hrs 01/06/23 01/06/23 01/06/23 Range/Units 05:51 05:51 05:51 WBC (4.8-10.8) x10^3/uL RBC (4.20-5.40) 10^6/uL Hgb (12.0-16.0) g/dL Hct (37.0-47.0) % MCV (81.0-99.0) fL MCH (27.0-31.0) pg MCHC (32.0-36.0) g/dL RDW (12.0-15.0) % Plt Count (130-450) 10^3/uL MPV (7.9-10.8) fL Neut # (Auto) Lymph # (Auto) [place] # (Auto) Eos # (Auto) Baso # (Auto) Absolute Nucleated RBC Total Counted Band Neuts % (Manual) (0 - 10) % Abnorm Lymph % (Manual) % Nucleated RBC % Neutrophils # (Manual) (1.5-6.6) 10^3/uL Lymphocytes # (Manual) (1.5-3.5) 10^3/uL Monocytes # (Manual) (0.0-1.0) 10^3/uL Eosinophils # (Manual) (0-0.7) 10^3/uL Basophils # (Manual) (0-0.1) 10^3/uL Differential Comment WBC Morphology (NORMAL) Platelet Estimate (NORMAL) Platelet Morphology (NORMAL) RBC Morph Micro Appear (NORMAL) Sodium 141 (135-145) mmol/L Potassium 4.3 (3.5-5.0) mmol/L Chloride 102 (101-111) mmol/L Carbon Dioxide 32 (21-32) mmol/L Anion Gap 7.0 (6-13) BUN 9 (6-20) mg/dL Creatinine 0.4 (0.4-1.0) mg/dL Estimated GFR (MDRD) 181 (>89) Glucose 87 (70-100) mg/dL Estimat Average Glucose (70-100) mg/dL Hemoglobin A1c % (4.27-6.07) % Calcium 8.4 L (8.5-10.3) mg/dL B-Natriuretic Peptide 36 (5-100) pg/mL Last Dose Date 01/05/23 Last Dose Time 2322 Vancomycin Trough 14.2 (10.0-20.0) ug/mL 01/06/23 01/05/23 Range/Units 05:51 04:38 WBC 20.3 H (4.8-10.8) x10^3/uL RBC 3.95 L (4.20-5.40) 10^6/uL Hgb 10.7 L (12.0-16.0) g/dL Hct 36.5 L (37.0-47.0) % MCV 92.4 (81.0-99.0) fL MCH 27.1 (27.0-31.0) pg MCHC 29.3 L (32.0-36.0) g/dL RDW 13.5 (12.0-15.0) % Plt Count 277 (130-450) 10^3/uL MPV 9.8 (7.9-10.8) fL Neut # (Auto) Not Reportable Lymph # (Auto) Not Reportable [place] # (Auto) Not Reportable Eos # (Auto) Not Reportable Baso # (Auto) Not Reportable Absolute Nucleated RBC Not Reportable Total Counted 100 Band Neuts % (Manual) 0 (0 - 10) % Abnorm Lymph % (Manual) 0 % Nucleated RBC % Not Reportable Neutrophils # (Manual) 17.1 H (1.5-6.6) 10^3/uL Lymphocytes # (Manual) 2.0 (1.5-3.5) 10^3/uL Monocytes # (Manual) 1.2 H (0.0-1.0) 10^3/uL Eosinophils # (Manual) 0.0 (0-0.7) 10^3/uL Basophils # (Manual) 0.0 (0-0.1) 10^3/uL Differential Comment MANUAL DIFFERENTIAL WBC Morphology NORMAL APPEARANCE (NORMAL) Platelet Estimate NORMAL (130-450,000) (NORMAL) Platelet Morphology NORMAL APPEARANCE (NORMAL) RBC Morph Micro Appear NORMAL APPEARANCE (NORMAL) Sodium (135-145) mmol/L Potassium (3.5-5.0) mmol/L Chloride (101-111) mmol/L Carbon Dioxide (21-32) mmol/L Anion Gap (6-13) BUN (6-20) mg/dL Creatinine (0.4-1.0) mg/dL Estimated GFR (MDRD) (>89) Glucose (70-100) mg/dL Estimat Average Glucose 126 H (70-100) mg/dL Hemoglobin A1c % 6.0 (4.27-6.07) % Calcium (8.5-10.3) mg/dL B-Natriuretic Peptide (5-100) pg/mL Last Dose Date Last Dose Time Vancomycin Trough (10.0-20.0) ug/mL ABX Reporting Has patient been on IV antibiotics over the past 48 hours?: Yes Sepsis Event Note (H) - Evaluation Current Stage of Sepsis: Sepsis Possible source of Sepsis: positive: Pulmonary - Sepsis Criteria Sepsis Criteria: Recorded Heart Rate greater than 90 bpm, Recorded Respiratory Rate greater than 20, Respiratory: Increasing oxygen requirements, WBC count greater than 12,000 or less than 4000 Assessment/Plan - Problem List (1) Sepsis Impression: The patient meets sepsis criteria including: elevated white blood cell count, heart rate greater than >90, and a pulmonary source of infection that has been confirmed by sputum culture. Her culture showed pseudomonas growth along with a gram positive bacteria which is still pending. She has been on NS since admission, but at a slow rate due to her orthopnea and concerns for volume overload vs pulmonary edema on chest x-ray. However a BNP was ordered and came back within normal limits (36). Because of this BNP result, we are less concerned for heart failure, but will proceed with an ECHO tomorrow due to radiologist's read of possible mild congestive heart failure and her lack of prior imaging. Her heart rate has also improved from 120 to 94. Plan: We will continue IV fluids. We will also continue to treat with antibiotics and supplemental oxygen. Qualifiers: Sepsis type: Pseudomonas (2) Acute respiratory failure with hypoxia Impression: Her underlying cystic fibrosis and acute pneumonia are likely contributing to her hypoxia. Her O2 has improved to the highest it has been during her stay: 95% on 2L/minute. Plan: Continue to give supplemental O2 to maintain saturation above 90% Continue to treat her pneumonia with antibiotics Continue to mobilize secretions from CF by respiratory therapy 3 times daily Continue with aggressive management of pulmonary toilet (3) Community acquired pneumonia Impression: Her sputum culture confirmed pseudomonas and a gram positive organism. We are still awaiting gram positive culture results. Blood cultures were negative. Plan: Await gram positive culture results. Continue IV meropenem and IV vancomycin based on her sputum results from 2019. Vanco was prescribed to cover for chance of MRSA Continue aggressive pulmonary toilet Qualifiers: Laterality: left (4) Chronic sinusitis Impression: Patient reports having sinus congestion and post nasal drip for 1.5 years. She has been seeing an ENT provider who instructed her to use nasal sprays to help with drainage. She normally sleeps in a flat position on her side but is unable to do this at this time due to copious sinus drainage. She is switching to a new ENT, Dr. Hayes Martínez ([phone]), whom she has not met yet. Sinus CT imaging was performed 01/05/23 and showed complete opacification of her maxillary sinus with chronic periosteal remodeling. She has not taken antibiotics for this. We initiated treatment with IV meropenem and according to up to date, duration of treatment may be up to 21 days depending on response to treatment. Plan: Because anaerobes are the most likely cause of her sinusitis, continue treatment with IV meropenem to give her anaerobic coverage. We will also attempt to contact Dr. Martínez to see what treatment he recommends (5) Cystic fibrosis Impression: Patient reports that after her last CF exacerbation, she never returned to baseline. She had a grab setter that she saw once yearly until he closed his practice recently. She reports that over the last 2 years, she has lost about 20 pounds. She also used to take lipase/protease/amylase but stopped due to the medication being too expensive. She does not take any prescription medications, only supplements. Instead, she makes dietary changes to decrease her protein and fat intake Her diet consists of foods like protein shakes, chicken, pork, cereal, and "IV fluid" drinks. She tolerates Mucinex 400 mg well and she has bee n compliant with chest PT as long as the RT is a female. We attempted to treat her with Mucinex 600 mg bid, which she did not tolerate as it made her too drowsy. Plan: Continue Mucinex 400 mg, but will encourage patient to increase the frequency as tolerated because she may be under-treating herself. Continue aggressive pulmonary toilet for managing her sputum Continue albuterol nebulizer Normal saline nebulizer twice daily Continue short course of prednisone as per UTD as she does have prolonged expiratory phase on exam. Predisone taper as follows: 60 mg x 2 days, then 40 mg x 2 days, then 20 mg x 2 days Nutrition consult will be ordered re malnutrition (6) Hyperglycemia Impression: Upon admission, the patient had an elevated non-fasting glucose of 242. Since then it has decreased and her glucose was 87 today. We have considered CF- related diabetes, which affects nearly 50% of adults greater than age 30. The patient is age 37 which increases her risk for this. CF-diabetes is also a common cause of nutritional decline in patients with CF, and would certainly explain her 20 pound weight loss over the last 2 years. Upon speaking with the patient more today, she reports eating a bowl of cereal right before coming to the ER on 01/04/23 and also drinking sugary drinks (called "IV fluids") frequently, which could also explain her elevated blood sugar. A hemoglobin A1c has been ordered to confirm, however, it is still pending due to batch proc essing. Plan: Await A1c results <Zohra Baker - Last Filed: 01/06/23 18:46> Subjective - Subjective Subjective: I attest that the patient was seen and examined by me with a separate encounter, after being seen by the PA student. I reviewed the student's documentation including patient history, physical examination, laboratory, imaging, clinical assessment and treatment plan. I have discussed the management of the patient with the student, with the patient and there are no changes. Objective - Vital Signs/Intake & Output Reviewed Vital Signs: Yes Vital Signs: Vital Signs x48h Temp Pulse Pulse Resp BP Pulse Ox O2 Flow Rate 01/06/23 18:06 2 01/06/23 18:05 90 22 01/06/23 15:38 36.5 C 94 18 114/67 95 2 01/06/23 13:00 65 24 01/06/23 11:48 36.5 C 96 18 114/60 92 2 Intake & Output: Intake & Output 01/03/23 01/04/23 01/05/23 01/06/23 23:59 23:59 23:59 23:59 Intake Total 3014.167 3955.0 3827.333 Balance 3014.167 3955.0 3827.333 - Lab Results Fish Bones: 01/06/23 05:51 01/06/23 05:51 Other Labs: Lab Results x24hrs 01/06/23 01/06/23 01/06/23 Range/Units 05:51 05:51 05:51 WBC (4.8-10.8) x10^3/uL RBC (4.20-5.40) 10^6/uL Hgb (12.0-16.0) g/dL Hct (37.0-47.0) % MCV (81.0-99.0) fL MCH (27.0-31.0) pg MCHC (32.0-36.0) g/dL RDW (12.0-15.0) % Plt Count (130-450) 10^3/uL MPV (7.9-10.8) fL Neut # (Auto) Lymph # (Auto) [place] # (Auto) Eos # (Auto) Baso # (Auto) Absolute Nucleated RBC Total Counted Band Neuts % (Manual) (0 - 10) % Abnorm Lymph % (Manual) % Nucleated RBC % Neutrophils # (Manual) (1.5-6.6) 10^3/uL Lymphocytes # (Manual) (1.5-3.5) 10^3/uL Monocytes # (Manual) (0.0-1.0) 10^3/uL Eosinophils # (Manual) (0-0.7) 10^3/uL Basophils # (Manual) (0-0.1) 10^3/uL Differential Comment WBC Morphology (NORMAL) Platelet Estimate (NORMAL) Platelet Morphology (NORMAL) RBC Morph Micro Appear (NORMAL) Sodium 141 (135-145) mmol/L Potassium 4.3 (3.5-5.0) mmol/L Chloride 102 (101-111) mmol/L Carbon Dioxide 32 (21-32) mmol/L Anion Gap 7.0 (6-13) BUN 9 (6-20) mg/dL Creatinine 0.4 (0.4-1.0) mg/dL Estimated GFR (MDRD) 181 (>89) Glucose 87 (70-100) mg/dL Estimat Average Glucose (70-100) mg/dL Hemoglobin A1c % (4.27-6.07) % Calcium 8.4 L (8.5-10.3) mg/dL B-Natriuretic Peptide 36 (5-100) pg/mL Last Dose Date 01/05/23 Last Dose Time 2322 Vancomycin Trough 14.2 (10.0-20.0) ug/mL 01/06/23 01/05/23 Range/Units 05:51 04:38 WBC 20.3 H (4.8-10.8) x10^3/uL RBC 3.95 L (4.20-5.40) 10^6/uL Hgb 10.7 L (12.0-16.0) g/dL Hct 36.5 L (37.0-47.0) % MCV 92.4 (81.0-99.0) fL MCH 27.1 (27.0-31.0) pg MCHC 29.3 L (32.0-36.0) g/dL RDW 13.5 (12.0-15.0) % Plt Count 277 (130-450) 10^3/uL MPV 9.8 (7.9-10.8) fL Neut # (Auto) Not Reportable Lymph # (Auto) Not Reportable [place] # (Auto) Not Reportable Eos # (Auto) Not Reportable Baso # (Auto) Not Reportable Absolute Nucleated RBC Not Reportable Total Counted 100 Band Neuts % (Manual) 0 (0 - 10) % Abnorm Lymph % (Manual) 0 % Nucleated RBC % Not Reportable Neutrophils # (Manual) 17.1 H (1.5-6.6) 10^3/uL Lymphocytes # (Manual) 2.0 (1.5-3.5) 10^3/uL Monocytes # (Manual) 1.2 H (0.0-1.0) 10^3/uL Eosinophils # (Manual) 0.0 (0-0.7) 10^3/uL Basophils # (Manual) 0.0 (0-0.1) 10^3/uL Differential Comment MANUAL DIFFERENTIAL WBC Morphology NORMAL APPEARANCE (NORMAL) Platelet Estimate NORMAL (130-450,000) (NORMAL) Platelet Morphology NORMAL APPEARANCE (NORMAL) RBC Morph Micro Appear NORMAL APPEARANCE (NORMAL) Sodium (135-145) mmol/L Potassium (3.5-5.0) mmol/L Chloride (101-111) mmol/L Carbon Dioxide (21-32) mmol/L Anion Gap (6-13) BUN (6-20) mg/dL Creatinine (0.4-1.0) mg/dL Estimated GFR (MDRD) (>89) Glucose (70-100) mg/dL Estimat Average Glucose 126 H (70-100) mg/dL Hemoglobin A1c % 6.0 (4.27-6.07) % Calcium (8.5-10.3) mg/dL B-Natriuretic Peptide (5-100) pg/mL Last Dose Date Last Dose Time Vancomycin Trough (10.0-20.0) ug/mL Assessment/Plan - Problem List (1) Sepsis Qualifiers: Sepsis type: Pseudomonas
[2023-01-06] MEDS ORDERED: SODIUM CHLORIDE 0.9% 1,000 ML IV SCH (19:16)
[2023-01-06] MEDS ORDERED: guaiFENesin 100 MG/5 ML UDC PO PRN (19:21)
[2023-01-06] MEDS: GUAIFENESIN 400 MG PO PRN (19:56)
[2023-01-07 05:55] LABS: BASOPHILS # (AUTO) 0.1 10^3/uL (0.0-0.1); BASOPHILS % (AUTO) 0.3 %; EOSINOPHILS # (AUTO) 0.1 10^3/uL (0.0-0.7); EOSINOPHILS % (AUTO) 0.7 %; HCT - HEMATOCRIT 38.7 % (37.0-47.0); HGB - HEMOGLOBIN 11.1 g/dL (12.0-16.0); LYMPHOCYTES # (AUTO) 2.1 10^3/uL (1.5-3.5); LYMPHOCYTES % (AUTO) 11.4 %; MEAN CORPUSCULAR HEMOGLOBIN 26.1 pg (27.0-31.0); MEAN CORPUSCULAR HGB CONC 28.7 g/dL (32.0-36.0); MEAN CORPUSCULAR VOLUME 91.1 fL (81.0-99.0); MEAN PLATELET VOLUME 9.6 fL (7.9-10.8); MONOCYTES # (AUTO) 1.3 10^3/uL (0.0-1.0); NEUTROPHILS # (AUTO) 14.7 10^3/uL (1.5-6.6); NEUTROPHILS % (AUTO) 80.1 %; PLT - PLATELET COUNT 306 10^3/uL (130-450); RED BLOOD COUNT 4.25 10^6/uL (4.20-5.40); RED CELL DISTRIBUTION WIDTH 13.6 % (12.0-15.0); WHITE BLOOD COUNT 18.4 x10^3/uL (4.8-10.8)
[2023-01-07 06:03] LABS: VANCOMYCIN,TROUGH 17.4 ug/mL (10.0-20.0)
[2023-01-07 06:12] LABS: CALCIUM 8.4 mg/dL (8.5-10.3); CREATININE 0.4 mg/dL (0.4-1.0); MAGNESIUM 1.8 mg/dL (1.7-2.8); POTASSIUM 4.6 mmol/L (3.5-5.0)
[2023-01-07] MEDS: VANCOMYCIN INJ 1 GM in SODIUM CHLORIDE 0.9% 250 ML IV SCH (06:52)
[2023-01-07] MEDS: predniSONE 20 MG TABLET PO SCH (08:26)
[2023-01-07] MEDS: ENOXAPARIN 40 MG/0.4 ML SYRINGE SUBQ SCH (08:26)
[2023-01-07] MEDS: GUAIFENESIN 400 MG PO PRN ×2 (08:26→18:16)
[2023-01-07] MEDS: SACCHAROMYCES BOULARDII 250 MG CAPSULE PO SCH ×2 (08:26→16:22)
[2023-01-07] MEDS: CHOLECALCIFEROL 25 MCG TABLET PO SCH (08:26)
[2023-01-07] MEDS: LORATADINE 10 MG TABLET PO SCH (08:26)
[2023-01-07] MEDS: PRENATAL VITAMIN TABLET PO SCH (08:26)
[2023-01-07] MEDS: CALCIUM CARB (OYSTER SHELL) 500 MG TABLET PO SCH (08:26)
[2023-01-07] MEDS: SODIUM CHLORIDE FLUSH 0.9% 10 ML SYRINGE IVP SCH ×2 (09:01→16:22)
[2023-01-07] MEDS: MEROPENEM 1 GM in SODIUM CHLORIDE 0.9% MINIBAG 100 ML IV SCH ×2 (10:10→16:23)
--- NOTE | 2023-01-07 11:20 | PROVIDER PROGRESS NOTE ---
Subjective - Prog Note Date Prog Note Date: 01/07/23 Prog Note Time: 11:18 - Subjective Pt reports feeling: Improved Subjective: Patient reports feeling slightly improved since yesterday, although she is coughing more today. She attributes coughing more to not having albuterol today because she denied a male RT this morning. She requested to start reducing her oxygen and she is now on 1.5 L/minute, which is decreased from her previous 2 L/min yesterday. She has also increased her Guaifenacin 400 mg dose has taken it twice today so far, compared to her usual once daily at home. She is still concerned about her sinuses because antibiotics have not improved her sinus congestion. Objective - Vital Signs/Intake & Output Reviewed Vital Signs: Yes Vital Signs: Vital Signs x48h Temp Pulse Resp BP Pulse Ox O2 Flow Rate 01/07/23 08:20 18 93 1.5 01/07/23 07:46 36.7 C 81 18 101/67 92 2 01/07/23 04:02 36.5 C 98 15 110/63 97 2 Intake & Output: Intake & Output 01/04/23 01/05/23 01/06/23 01/07/23 23:59 23:59 23:59 23:59 Intake Total 3014.167 3955.0 4577.333 941.167 Balance 3014.167 3955.0 4577.333 941.167 - Objective General Appearance: positive: No acute distress Eyes Bilateral: positive: Normal inspection - Lab Results Fish Bones: 01/07/23 05:40 01/07/23 05:40 Other Labs: Lab Results x24hrs 01/07/23 01/07/23 01/07/23 Range/Units 05:40 05:40 05:40 WBC 18.4 H (4.8-10.8) x10^3/uL RBC 4.25 (4.20-5.40) 10^6/uL Hgb 11.1 L (12.0-16.0) g/dL Hct 38.7 (37.0-47.0) % MCV 91.1 (81.0-99.0) fL MCH 26.1 L (27.0-31.0) pg MCHC 28.7 L (32.0-36.0) g/dL RDW 13.6 (12.0-15.0) % Plt Count 306 (130-450) 10^3/uL MPV 9.6 (7.9-10.8) fL Neut # (Auto) 14.7 H (1.5-6.6) 10^3/uL Lymph # (Auto) 2.1 (1.5-3.5) 10^3/uL [place] # (Auto) 1.3 H (0.0-1.0) 10^3/uL Eos # (Auto) 0.1 (0.0-0.7) 10^3/uL Baso # (Auto) 0.1 (0.0-0.1) 10^3/uL Absolute Nucleated RBC 0.00 x10^3/uL Nucleated RBC % 0.0 /100WBC Sodium 138 (135-145) mmol/L Potassium 4.6 (3.5-5.0) mmol/L Chloride 96 L (101-111) mmol/L Carbon Dioxide 35 H (21-32) mmol/L Anion Gap 7.0 (6-13) BUN 9 (6-20) mg/dL Creatinine 0.4 (0.4-1.0) mg/dL Estimated GFR (MDRD) 181 (>89) Glucose 96 (70-100) mg/dL Estimat Average Glucose (70-100) mg/dL Hemoglobin A1c % (4.27-6.07) % Calcium 8.4 L (8.5-10.3) mg/dL Magnesium 1.8 (1.7-2.8) mg/dL B-Natriuretic Peptide (5-100) pg/mL Last Dose Date 01/06/23 Last Dose Time 2325 Vancomycin Trough 17.4 (10.0-20.0) ug/mL 01/06/23 01/05/23 Range/Units 05:51 04:38 WBC (4.8-10.8) x10^3/uL RBC (4.20-5.40) 10^6/uL Hgb (12.0-16.0) g/dL Hct (37.0-47.0) % MCV (81.0-99.0) fL MCH (27.0-31.0) pg MCHC (32.0-36.0) g/dL RDW (12.0-15.0) % Plt Count (130-450) 10^3/uL MPV (7.9-10.8) fL Neut # (Auto) (1.5-6.6) 10^3/uL Lymph # (Auto) (1.5-3.5) 10^3/uL [place] # (Auto) (0.0-1.0) 10^3/uL Eos # (Auto) (0.0-0.7) 10^3/uL Baso # (Auto) (0.0-0.1) 10^3/uL Absolute Nucleated RBC x10^3/uL Nucleated RBC % /100WBC Sodium (135-145) mmol/L Potassium (3.5-5.0) mmol/L Chloride (101-111) mmol/L Carbon Dioxide (21-32) mmol/L Anion Gap (6-13) BUN (6-20) mg/dL Creatinine (0.4-1.0) mg/dL Estimated GFR (MDRD) (>89) Glucose (70-100) mg/dL Estimat Average Glucose 126 H (70-100) mg/dL Hemoglobin A1c % 6.0 (4.27-6.07) % Calcium (8.5-10.3) mg/dL Magnesium (1.7-2.8) mg/dL B-Natriuretic Peptide 36 (5-100) pg/mL Last Dose Date Last Dose Time Vancomycin Trough (10.0-20.0) ug/mL Sepsis Event Note (H) - Evaluation Current Stage of Sepsis: Sepsis Possible source of Sepsis: positive: Pulmonary - Sepsis Criteria Sepsis Criteria: Recorded Heart Rate greater than 90 bpm, Recorded Respiratory Rate greater than 20, Respiratory: Increasing oxygen requirements, WBC count greater than 12,000 or less than 4000 Assessment/Plan - Problem List (1) Sepsis Impression: (1) Sepsis Impression: The patient meets sepsis criteria including: elevated white blood cell count, heart rate greater than >90, and a pulmonary source of infection that has been confirmed by sputum culture. Her culture showed pseudomonas growth which is common for people with cystic fibrosis. She has been on NS since admission, but at a slow rate due to her orthopnea and concerns for volume overload vs pulmonary edema on chest x-ray. However a BNP was ordered and came back within normal limits (BNP=36). Because of this BNP result, we are less concerned for heart failure, but will proceed with an ECHO tomorrow due to radiologist's read of possible mild congestive heart failure and her lack of prior imaging. Her heart rate has also improved from 120 to 88 today. Plan: We will continue IV fluids. We will also continue to treat with antibiotics and supplemental oxygen. Qualifiers: Sepsis type: Pseudomonas (2) Acute respiratory failure with hypoxia Impression: Her underlying cystic fibrosis and acute pneumonia are contributing to her hypoxia. Due to her oxygen saturation improvement on January 06, I decided to try decreasing her oxygen, since she does not use oxygen normally at home. Today, we have decreased her oxygen from 2 L/min to 1.5 L/min and the patient is tolerating this well at 93% saturation. Plan: We will give supplemental O2, to achieve saturations over 90 to 92% We will treat the underlying infection and mobilize secretions from CF Will order aggressive management of her pulmonary toilet in this patient with CF consisting of CF vest and incentive spirometry. Pulmonology follow up recommended after discharge (3) Community acquired pneumonia Impression: Her sputum culture confirmed pseudomonas. Blood cultures were negative. I will continue treating her with IV meropenem. Conclusion/Plan: Her sputum culture grew pseudomonas, which I am treating with IV meropenem. I discontinued IV vancomycin on 01/07 due to no MRSA detected in sputum culture 01/04: IV levofloxacin; one dose given in ER, but changed to vancomycin upon admission due to concerns for MRSA 01/04-01/07: IV vancomycin; discontinued 01/07 due to no MRSA 01/04-present: IV meropenem Plan: Continue with IV meropenem Continue probiotics BID Continue aggressive pulmonary toilet in this CF pt (CF vest and incentive sp irometry) Qualifiers: Laterality: left (4) Chronic sinusitis Impression: Sinus CT imaging was performed 01/05/23 and showed complete opacification of her maxillary sinus with chronic periosteal remodeling. An ENT provider in the past instructed her to use nasal sprays to help with drainage. She also takes Mucinex 400 mg once daily. She recently switched to a new ENT, Dr. Hayes Martínez ([phone]). I spoke with Dr. Martínez who recommended discharging her on levaquin. He is also placing a referral to a paint booth operator who specializes in CF. The patient normally sleeps in a flat position on her side and last night she was able to lower the head of the bed to 45 degrees, compared to 90 degrees the previous night. Plan: Because anaerobes are the most likely cause of her sinusitis, continue treatment with IV meropenem to give her anaerobic coverage. Prescribe oral Levaquin upon discharge. (5) Cystic fibrosis Impression: Patient reports that since getting pneumonia in 2019, she never returned to baseline. She saw a paint booth operator in August 2022 who reported that he was "not sure the reason for the visit". She is unable to take Creon, Pulmozyme, and Trikafta due to cost issues. Her FEV1 worsened from 56% to 38% from 2006 to June 2020. She also has not seen a PCP in 1 year because they never requested to see her. She reports that over the last 2 years, she has lost about 20 pounds. She does not take any prescription medications, only supplements. Instead, she makes dietary changes to decrease her protein and fat intake. Her diet consists of foods like protein shakes, chicken, pork, cereal, and "IV fluid" drinks. She tolerates Mucinex 400 mg well and she has been compliant with chest PT as long as the RT is a female. She did not tolerate Mucinex 600 mg bid on 01/04 because it made her too drowsy. Today is day 3 of her prednisone taper. 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 Plan: Strongly encouraged patient to follow up with a paint booth operator regularly due to her CF diagnosis. I discussed that not doing so will shorten her life. I also discussed contacting social work to figure out the best insurance plan for her so that she might be able to get the CF medications that she cannot afford right now. Continue Mucinex 400 mg q4h Continue aggressive pulmonary toilet (vest and incentive spirometry) for managing her sputum Continue albuterol nebulizer tid Normal saline nebulizer bid Continue short course of prednisone as per UTD as she does have prolonged expiratory phase on exam. Predisone taper as follows: 60 mg x 2 days, then 40 mg x 2 days, then 20 mg x 2 days Nutrition consult will be ordered re malnutrition (6) Hyperglycemia Impression: Upon admission, the patient had an elevated non-fasting glucose of 242. Since then it has decreased and her glucose was 96 today. I have considered CF-related diabetes, which affects nearly 50% of adults greater than age 30. The patient is age 37 which increases her risk for this. CF-diabetes is also a common cause of nutritional decline in patients with CF, and would certainly explain her 20 pound weight loss over the last 2 years. Upon speaking with the patient more ye sterday, she reports eating a bowl of cereal right before coming to the ER on 01/04/23 and also drinking sugary drinks (called "IV fluids") frequently, which could also explain her elevated blood sugar. A hemoglobin A1c has been ordered to confirm and it was 6.0%. Plan: Nutrition consult
[2023-01-07] MEDS: ALBUTEROL NEB 2.5 MG/3 ML INH SCH ×3 (11:45→21:12)
[2023-01-07] MEDS: SODIUM CHLORIDE INHALATION 3 ML NEB INH SCH ×2 (11:46→21:12)
[2023-01-08] MEDS: MEROPENEM 1 GM in SODIUM CHLORIDE 0.9% MINIBAG 100 ML IV SCH ×4 (00:05→23:50)
[2023-01-08] MEDS: SODIUM CHLORIDE FLUSH 0.9% 10 ML SYRINGE IVP SCH ×4 (00:05→23:50)
[2023-01-08 04:47] LABS: BASOPHILS # (AUTO) 0.1 10^3/uL (0.0-0.1); BASOPHILS % (AUTO) 0.3 %; EOSINOPHILS # (AUTO) 0.2 10^3/uL (0.0-0.7); EOSINOPHILS % (AUTO) 1.1 %; HCT - HEMATOCRIT 37.8 % (37.0-47.0); HGB - HEMOGLOBIN 11.2 g/dL (12.0-16.0); LYMPHOCYTES # (AUTO) 2.4 10^3/uL (1.5-3.5); LYMPHOCYTES % (AUTO) 16.3 %; MEAN CORPUSCULAR HEMOGLOBIN 26.7 pg (27.0-31.0); MEAN CORPUSCULAR HGB CONC 29.6 g/dL (32.0-36.0); MEAN CORPUSCULAR VOLUME 90.2 fL (81.0-99.0); MEAN PLATELET VOLUME 9.7 fL (7.9-10.8); MONOCYTES # (AUTO) 1.2 10^3/uL (0.0-1.0); NEUTROPHILS # (AUTO) 10.9 10^3/uL (1.5-6.6); PLT - PLATELET COUNT 311 10^3/uL (130-450); RED BLOOD COUNT 4.19 10^6/uL (4.20-5.40); RED CELL DISTRIBUTION WIDTH 13.6 % (12.0-15.0); WHITE BLOOD COUNT 14.8 x10^3/uL (4.8-10.8)
[2023-01-08] MEDS: LIPASE/PROTEASE/AMYLASE CAPSULE PO SCH ×3 (08:08→16:56)
[2023-01-08] MEDS: ENOXAPARIN 40 MG/0.4 ML SYRINGE SUBQ SCH (08:08)
[2023-01-08] MEDS: CHOLECALCIFEROL 25 MCG TABLET PO SCH (08:09)
[2023-01-08] MEDS: predniSONE 20 MG TABLET PO SCH (08:09)
[2023-01-08] MEDS: LORATADINE 10 MG TABLET PO SCH (08:09)
[2023-01-08] MEDS: PRENATAL VITAMIN TABLET PO SCH (08:09)
[2023-01-08] MEDS: CALCIUM CARB (OYSTER SHELL) 500 MG TABLET PO SCH (08:09)
[2023-01-08] MEDS: SACCHAROMYCES BOULARDII 250 MG CAPSULE PO SCH ×2 (08:23→16:57)
[2023-01-08] MEDS: CHOLECALCIFEROL 5,000 UNIT CAPSULE PO SCH (09:56)
[2023-01-08] MEDS: GUAIFENESIN 400 MG PO PRN (10:38)
--- NOTE | 2023-01-08 13:56 | PROVIDER PROGRESS NOTE ---
Subjective - Prog Note Date Prog Note Date: 01/08/23 Prog Note Time: 13:54 - Subjective Pt reports feeling: Improved Subjective: Patient reports that she is doing much better today. She is tolerating the decrease in oxygen from 1.5 L/min to 1 L/min well. She has also started using the restroom instead of the bedside commode. She requested to stop the Lovenox for DVT-prophylaxis because it stings, but we discussed that she will have to be more mobile in order to stop it. She expressed understanding and stated that she will work on moving more. She still has sinus concerns and is not able to sleep flat on her back due to congestion and drainage. Objective - Vital Signs/Intake & Output Reviewed Vital Signs: Yes Vital Signs: Vital Signs x48h Temp Pulse Pulse Resp BP Pulse Ox O2 Flow Rate 01/08/23 13:00 36.5 C 87 18 99/63 94 1 01/08/23 10:43 93 17 95 1 01/08/23 08:19 36.5 C 88 18 114/63 96 1.5 Intake & Output: Intake & Output 01/05/23 01/06/23 01/07/23 01/08/23 23:59 23:59 23:59 23:59 Intake Total 3955.0 4577.333 2865.167 1080 Balance 3955.0 4577.333 2865.167 1080 - Objective General Appearance: positive: No acute distress Eyes Bilateral: positive: Normal inspection, No scleral icterus Neck: positive: No JVD, Trachea midline Respiratory: positive: Other (Still has bilateral crackles but improved from yesterday). negative: Wheezes Cardiovascular: positive: Regular rate & rhythm Skin: positive: No rash, Warm, Dry, Pallor Extremities: positive: No pedal edema Neurologic/Psychiatric: positive: Oriented x3, Mood/affect nml - Lab Results Fish Bones: 01/08/23 04:40 01/07/23 05:40 Other Labs: Lab Results x24hrs 01/08/23 01/06/23 Range/Units 04:40 15:31 WBC 14.8 H (4.8-10.8) x10^3/uL RBC 4.19 L (4.20-5.40) 10^6/uL Hgb 11.2 L (12.0-16.0) g/dL Hct 37.8 (37.0-47.0) % MCV 90.2 (81.0-99.0) fL MCH 26.7 L (27.0-31.0) pg MCHC 29.6 L (32.0-36.0) g/dL RDW 13.6 (12.0-15.0) % Plt Count 311 (130-450) 10^3/uL MPV 9.7 (7.9-10.8) fL Neut # (Auto) 10.9 H (1.5-6.6) 10^3/uL Lymph # (Auto) 2.4 (1.5-3.5) 10^3/uL Hendricks # (Auto) 1.2 H (0.0-1.0) 10^3/uL Eos # (Auto) 0.2 (0.0-0.7) 10^3/uL Baso # (Auto) 0.1 (0.0-0.1) 10^3/uL Absolute Nucleated RBC 0.00 x10^3/uL Nucleated RBC % 0.0 /100WBC Vitamin D 25-Hydroxy 22.7 L (30.0-100.0) ng/mL ABX Reporting Has patient been on IV antibiotics over the past 48 hours?: Yes Sepsis Event Note (H) - Evaluation Current Stage of Sepsis: Sepsis Possible source of Sepsis: positive: Pulmonary - Sepsis Criteria Sepsis Criteria: Recorded Heart Rate greater than 90 bpm, Recorded Respiratory Rate greater than 20, Respiratory: Increasing oxygen requirements, WBC count greater than 12,000 or less than 4000 Assessment/Plan - Problem List (1) Sepsis Impression: (1) Sepsis Impression: The patient meets sepsis criteria including: elevated white blood cell count, heart rate greater than >90, and a pulmonary source of infection that has been confirmed by sputum culture. Her culture showed pseudomonas growth which is common for people with cystic fibrosis. She has been on NS since admission, but at a slow rate due to her orthopnea and concerns for volume overload vs pulmonary edema on chest x-ray. However a BNP was ordered and came back within n ormal limits (BNP=36). Because of this BNP result, we are less concerned for heart failure, but ordered an ECHO due to radiologist's read of possible mild congestive heart failure and her lack of prior imaging. Echo performed on 01/07 showed RVSP of 33mmHg, but R and L ventricles appeared normal. She had no signs of valvular disease. She also no longer has tachycardia. Plan: We will continue IV fluids. We will also continue to treat with antibiotics and supplemental oxygen. Qualifiers: Sepsis type: Pseudomonas (2) Acute respiratory failure with hypoxia Impression: Her underlying cystic fibrosis and acute pneumonia are contributing to her hypoxia. Historically, she has never used or needed oxygen at home. Last night, we decreased her oxygen from 1.5 L/min to 1 L/min and the patient is tolerating this well at 94% saturation. She has also started using the bathroom toilet instead of the bedside commode and is tolerating this well. Plan: We will give supplemental O2, to achieve saturations over 90 to 92% We will treat the underlying infection and mobilize secretions from CF Will order aggressive management of her pulmonary toilet in this patient with CF consisting of CF vest and incentive spirometry. Pulmonology follow up strongly recommended after discharge (3) Community acquired pneumonia Impression: Her sputum culture confirmed pseudomonas. Blood cultures were negative. I will continue treating her with IV meropenem. Her WBC count continues to improve and decreased from 18.4 to 14.8 from yesterday to today. Conclusion/Plan: Her sputum culture grew pseudomonas, which I am treating with IV meropenem. I discontinued IV vancomycin on 01/07 due to no MRSA detected in sputum culture 01/04: IV levofloxacin; one dose given in ER, but changed to vancomycin upon admission due to concerns for MRSA 01/04-01/07: IV vancomycin; discontinued 01/07 due to no MRSA 01/04-present: IV meropenem Plan: Continue with IV meropenem Continue probiotics BID Continue aggressive pulmonary toilet in this CF pt (CF vest and incentive spirometry) Qualifiers: Laterality: left (4) Chronic sinusitis Impression: Sinus CT imaging was performed 01/05/23 and showed complete opacification of her maxillary sinus with chronic periosteal remodeling. An ENT provider in the past instructed her to use nasal sprays to help with drainage. She also takes Mucinex 400 mg once daily. She recently switched to a new ENT, Dr. Hayes Martínez ([phone]). I spoke with Dr. Martínez on 01/07 who recommended discharging her on levaquin. He is also placing a referral to a tractor driver teamster who specializes in CF. Plan: Because anaerobes are the most likely cause of her sinusitis, continue treatment with IV meropenem to give her anaerobic coverage. Prescribe oral Levaquin upon discharge. (5) Cystic fibrosis Impression: Patient reports that since getting pneumonia in 2019, she never returned to baseline. She saw a tractor driver teamster in August 2022 who reported that he was "not sure the reason for the visit". She has been unable to take Creon, Pulmozyme, and Trikafta due to cost issues. Her FEV1 worsened from 56% to 38% from 2006 to June 2020. She also has not seen a PCP in 1 year because they never requested to see her. She reports that over the last 2 years, she has lost about 20 pounds. She does not take any prescription medications, only supplements. Instead, she makes dietary changes to decrease her protein and fat intake. Her diet consists of foods like protein shakes, chicken, pork, cereal, and "IV fluid" drinks. On 01/08, I decided to start pancreatic enzymes, since she has been unable to get them while at home. She tolerates Mucinex 400 mg well and she has been compliant with chest PT as long as the RT is a female. She did not tolerate Mucinex 600 mg bid on 01/04 because it made her too drowsy. Today is day 4 of her prednisone taper. 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 Plan: Strongly encouraged patient to follow up with a tractor driver teamster regularly due to her CF diagnosis. I discussed that not doing so will shorten her life. I also contacted social work to figure out the best insurance plan for her so that she might be able to get the CF medications that she cannot afford right now. Started pancrelipase, 3 capsules TID Continue Mucinex 400 mg q4h Continue aggressive pulmonary toilet (vest and incentive spirometry) for managing her sputum Continue albuterol nebulizer tid Normal saline nebulizer bid Continue short course of prednisone as per UTD as she does have prolonged expiratory phase on exam. Predisone taper as follows: 60 mg x 2 days, then 40 mg x 2 days, then 20 mg x 2 days Nutrition consult re malnutrition (6) Hyperglycemia Impression: Upon admission, the patient had an elevated non-fasting glucose of 242. Since then, it has decreased and her glucose was 96 on 01/07. I have considered CF- related diabetes, which affects nearly 50% of adults greater than age 30. The patient is age 37 which increases her risk for this. CF-diabetes is also a common cause of nutritional decline in patients with CF, and would certainly explain her 20 pound weight loss over the last 2 years. Upon speaking with the patient more on 01/06, she reports eating a bowl of cereal right before coming to the ER on 01/04/23 and also drinking sugary drinks (called "IV fluids") frequently, which could also explain her elevated blood sugar. A hemoglobin A1c has been ordered to confirm and it was 6.0%, which does not meet diabetes criteria. I decided to start pancrelipase today because she is not able to take this medication at home due to cost concerns. This will help break down the fats, protein, and starch in her meals. Her appetite is good and she is eating 100% of her meals, though the registered land surveyor would prefer if she had Ensure between meals as well. Plan: Nutrition consult Increased cholecalciferol to 5,000 IU daily Started pancrelipase, 3 capsules TID
[2023-01-08] MEDS: ALBUTEROL NEB 2.5 MG/3 ML INH SCH ×3 (16:11→19:13)
[2023-01-08] MEDS: SODIUM CHLORIDE INHALATION 3 ML NEB INH SCH (16:12)
[2023-01-09] MEDS: ALBUTEROL NEB 2.5 MG/3 ML INH SCH ×3 (07:30→19:10)
[2023-01-09] MEDS ORDERED: predniSONE 20 MG TABLET PO ONE (08:00)
[2023-01-09] MEDS: ENOXAPARIN 40 MG/0.4 ML SYRINGE SUBQ SCH ×2 (08:24→10:49)
[2023-01-09] MEDS: LIPASE/PROTEASE/AMYLASE CAPSULE PO SCH ×3 (08:24→16:35)
[2023-01-09] MEDS: CALCIUM CARB (OYSTER SHELL) 500 MG TABLET PO SCH (08:24)
[2023-01-09] MEDS: CHOLECALCIFEROL 5,000 UNIT CAPSULE PO SCH (08:24)
[2023-01-09] MEDS: MEROPENEM 1 GM in SODIUM CHLORIDE 0.9% MINIBAG 100 ML IV SCH ×3 (08:24→23:53)
[2023-01-09] MEDS: LORATADINE 10 MG TABLET PO SCH (08:24)
[2023-01-09] MEDS: SACCHAROMYCES BOULARDII 250 MG CAPSULE PO SCH ×2 (08:24→16:35)
[2023-01-09] MEDS: PRENATAL VITAMIN TABLET PO SCH (08:24)
[2023-01-09] MEDS: SODIUM CHLORIDE FLUSH 0.9% 10 ML SYRINGE IVP SCH ×3 (08:25→23:58)
[2023-01-09] MEDS: SODIUM CHLORIDE INHALATION 3 ML NEB INH SCH ×2 (11:26→21:00)
--- NOTE | 2023-01-09 17:34 | PROVIDER PROGRESS NOTE ---
Assessment/Plan - Problem List (1) Pneumonia Qualifiers: Pneumonia type: due to unspecified organism Laterality: bilateral Lung location: unspecified part of lung Qualified Code(s): J18.9 - Pneumonia, unspecified organism Assessment/Plan: Patient with cystic fibrosis now with acute respiratory failure with hypoxia on 0.5 to 1 L oxygen by nasal cannula secondary to pneumonia which itself is likely related to chronic sinusitis Patient subjectively reports improvement Is attempting to ambulate today Anticipate if patient is able to wean off oxygen may discharge as early as tomorrow (2) Cystic fibrosis Assessment/Plan: Continue supportive care, oxygen as needed, outpatient referral to pulmonology already in arrangement - Current Meds Current Meds: Current Medications Generic Name Dose Route Start Last Admin Trade Name Freq PRN Reason Stop Dose Admin Albuterol 2.5 mg 01/04/23 19:00 01/09/23 07:30 Albuterol Neb 2.5 Mg/3 Ml INH 2.5 mg RTTID LILLIE Administration Lipase/Protease/Amylase 3 cap 01/08/23 08:00 01/09/23 16:35 Lipase/Protease/Amylase Capsule PO 3 cap TIDWM LILLIE Administration Calcium Carbonate/Glycine 500 mg 01/05/23 09:00 01/09/23 08:24 Calcium Carb (Oyster Shell) 500 Mg Tablet PO 500 mg DAILY LILLIE Administration Cholecalciferol 5,000 unit 01/08/23 10:00 01/09/23 08:24 Cholecalciferol 5,000 Unit Capsule PO 5,000 unit DAILY LILLIE Administration Enoxaparin Sodium 40 mg 01/04/23 09:00 01/09/23 10:49 Enoxaparin 40 Mg/0.4 Ml Syringe SUBQ Not Given DAILY LILLIE Meropenem 1 gm/ Sodium 100 mls @ 200 mls/hr 01/04/23 16:00 01/09/23 17:07 Chloride IV Infused Q8H LILLIE Infusion Ibuprofen 200 mg 01/04/23 14:23 01/05/23 00:04 Ibuprofen 400 Mg Tablet PO 200 mg Q6HR PRN Administration Moderate Pain (Level 4-6) Loratadine 10 mg 01/05/23 09:00 01/09/23 08:24 Loratadine 10 Mg Tablet PO 10 mg DAILY LILLIE Administration Guaifenesin 400mg 1 each 01/06/23 19:46 01/08/23 10:38 Tab PO 1 each Q4H PRN Administration COUGHING Multivit/Folic Acid/Iron 1 tab 01/05/23 08:00 01/09/23 08:24 Vitamin Tablet PO 1 tab DAILYWM LILLIE Administration Saccharomyces Boulardii 250 mg 01/04/23 17:00 01/09/23 16:35 Saccharomyces Boulardii 250 Mg Capsule PO 250 mg BIDWM LILLIE Administration Sodium Chloride 10 ml 01/04/23 09:00 01/09/23 16:26 Sodium Chloride Flush 0.9% 10 Ml Syringe IVP Not Given 0100,0900,1700 LILLIE Sodium Chloride 3 ml 01/05/23 21:00 01/09/23 11:26 Sodium Chloride Inhalation 3 Ml Neb INH Not Given BID LILLIE - Lab Result Lab results reviewed: Yes Fish Bone Diagrams: 01/08/23 04:40 01/07/23 05:40 - Diagnostic Imaging Results Diagnostic Imaging Results: Final report reviewed - Additional Planning Condition/Complexity: Improved Subjective - Subjective Patient Reports: Feeling Better Objective Vital Signs: Vital Signs - 24 hr 01/08/23 01/08/23 01/08/23 19:10 20:22 23:58 Temperature 36.4 C L 36.3 C L Heart Rate 101 H Heart Rate [ 94 Brachial] Heart Rate [ 83 Monitoring electrodes] Respiratory 20 16 14 Rate Blood Pressure 104/59 L 103/64 [Right Brachial artery] O2 Saturation 96 96 If not protocol 1 1 1 : Oxygen Flow, liters/minute 01/09/23 01/09/23 01/09/23 05:16 07:30 08:21 Temperature 36.6 C 36.6 C Heart Rate 79 Heart Rate [ 92 92 Brachial] Heart Rate [ Monitoring electrodes] Respiratory 20 22 20 Rate Blood Pressure 103/59 L 102/60 [Right Brachial artery] O2 Saturation 93 91 L If not protocol 1 0.5 1 : Oxygen Flow, liters/minute 01/09/23 01/09/23 01/09/23 12:51 13:00 15:30 Temperature 36.4 C L 36.4 C L Heart Rate 85 Heart Rate [ 92 103 H Brachial] Heart Rate [ Monitoring electrodes] Respiratory 22 20 16 Rate Blood Pressure 113/62 111/61 [Right Brachial artery] O2 Saturation 92 94 If not protocol 1 1 1 : Oxygen Flow, liters/minute Oxygen O2 Source Nasal cannula Oxygen Flow Rate 2 I&O (Last 24 Hrs): Intake and Output Totals x24h 01/07/23 01/08/23 01/09/23 23:59 23:59 23:59 Intake Total 2865.167 1959 1400 Balance 2865.167 1959 1400 General: Alert, Oriented x3 HEENT: Atraumatic Neuro: Alert Cardiovascular: Regular rate, Normal S1, Normal S2 Respiratory: Chest non-tender Abdomen: Normal bowel sounds Extremities: No clubbing, No cyanosis, No edema Skin: No rashes, No breakdown, No significant lesion - Results Results: Laboratory Results WBC 14.8 x10^3/uL (4.8-10.8) H 01/08/23 04:40 RBC 4.19 10^6/uL (4.20-5.40) L 01/08/23 04:40 Hgb 11.2 g/dL (12.0-16.0) L 01/08/23 04:40 Hct 37.8 % (37.0-47.0) 01/08/23 04:40 MCV 90.2 fL (81.0-99.0) 01/08/23 04:40 MCH 26.7 pg (27.0-31.0) L 01/08/23 04:40 MCHC 29.6 g/dL (32.0-36.0) L 01/08/23 04:40 RDW 13.6 % (12.0-15.0) 01/08/23 04:40 Plt Count 311 10^3/uL (130-450) 01/08/23 04:40 MPV 9.7 fL (7.9-10.8) 01/08/23 04:40 Neut # (Auto) 10.9 10^3/uL (1.5-6.6) H 01/08/23 04:40 Lymph # (Auto) 2.4 10^3/uL (1.5-3.5) 01/08/23 04:40 Stokes # (Auto) 1.2 10^3/uL (0.0-1.0) H 01/08/23 04:40 Eos # (Auto) 0.2 10^3/uL (0.0-0.7) 01/08/23 04:40 Baso # (Auto) 0.1 10^3/uL (0.0-0.1) 01/08/23 04:40 Absolute Nucleated RBC 0.00 x10^3/uL 01/08/23 04:40 Total Counted 100 01/06/23 05:51 Band Neuts % (Manual) 0 % (0-10) 01/06/23 05:51 Reactive Lymphs % (Man) 5 % 01/05/23 04:38 Abnorm Lymph % (Manual) 0 % 01/06/23 05:51 Nucleated RBC % 0.0 /100WBC 01/08/23 04:40 Neutrophils # (Manual) 17.1 10^3/uL (1.5-6.6) H 01/06/23 05:51 Lymphocytes # (Manual) 2.0 10^3/uL (1.5-3.5) 01/06/23 05:51 Monocytes # (Manual) 1.2 10^3/uL (0.0-1.0) H 01/06/23 05:51 Eosinophils # (Manual) 0.0 10^3/uL (0-0.7) 01/06/23 05:51 Basophils # (Manual) 0.0 10^3/uL (0-0.1) 01/06/23 05:51 Differential Comment MANUAL DIFFERENTIAL 01/06/23 05:51 WBC Morphology NORMAL APPEARANCE (NORMAL) 01/06/23 05:51 Platelet Estimate NORMAL (130-450,000) (NORMAL) 01/06/23 05:51 Platelet Morphology NORMAL APPEARANCE (NORMAL) 01/06/23 05:51 RBC Morph Micro Appear NORMAL APPEARANCE (NORMAL) 01/06/23 05:51 Sodium 138 mmol/L (135-145) 01/07/23 05:40 Potassium 4.6 mmol/L (3.5-5.0) 01/07/23 05:40 Chloride 96 mmol/L (101-111) L 01/07/23 05:40 Carbon Dioxide 35 mmol/L (21-32) H 01/07/23 05:40 Anion Gap 7.0 (6-13) 01/07/23 05:40 BUN 9 mg/dL (6-20) 01/07/23 05:40 Creatinine 0.4 mg/dL (0.4-1.0) 01/07/23 05:40 Estimated GFR (MDRD) 181 (>89) 01/07/23 05:40 Glucose 96 mg/dL (70-100) 01/07/23 05:40 Estimat Average Glucose 126 mg/dL (70-100) H 01/05/23 04:38 Hemoglobin A1c % 6.0 % (4.27-6.07) 01/05/23 04:38 Lactic Acid 1.4 mmol/L (0.5-2.2) 01/04/23 04:23 Calcium 8.4 mg/dL (8.5-10.3) L 01/07/23 05:40 Phosphorus 3.8 mg/dL (2.5-4.6) 01/05/23 04:38 Magnesium 1.8 mg/dL (1.7-2.8) 01/07/23 05:40 Total Bilirubin 0.4 mg/dL (0.2-1.0) 01/04/23 04:23 AST 24 IU/L (10-42) 01/04/23 04:23 ALT 26 IU/L (10-60) 01/04/23 04:23 Alkaline Phosphatase 67 IU/L (42-121) 01/04/23 04:23 Troponin I High Sens 22.9 ng/L (2.3-14.8) H* 01/04/23 06:11 B-Natriuretic Peptide 36 pg/mL (5-100) 01/06/23 05:51 Total Protein 6.8 g/dL (6.7-8.2) 01/04/23 04:23 Albumin 3.3 g/dL (3.2-5.5) 01/04/23 04:23 Globulin 3.5 g/dL (2.1-4.2) 01/04/23 04:23 Albumin/Globulin Ratio 0.9 (1.0-2.2) L 01/04/23 04:23 Lipase 22 U/L (22-51) 01/04/23 04:23 Vitamin D 25-Hydroxy 22.7 ng/mL (30.0-100.0) L 01/06/23 15:31 Urine Color YELLOW 01/04/23 04:55 Urine Clarity CLEAR (CLEAR) 01/04/23 04:55 Urine pH 6.0 PH (5.0-7.5) 01/04/23 04:55 Ur Specific [place] <=1.005 (1.002-1.030) 01/04/23 04:55 Urine Protein NEGATIVE mg/dL (NEGATIVE) 01/04/23 04:55 Urine Glucose (UA) NEGATIVE mg/dL (NEGATIVE) 01/04/23 04:55 Urine Ketones NEGATIVE mg/dL (NEGATIVE) 01/04/23 04:55 Urine Occult Blood TRACE-INTA (NEGATIVE) 01/04/23 04:55 Urine Nitrite NEGATIVE (NEGATIVE) 01/04/23 04:55 Urine Bilirubin NEGATIVE (NEGATIVE) 01/04/23 04:55 Urine Urobilinogen 0.2 (NORMAL) E.U./dL (NORMAL) 01/04/23 04:55 Ur Leukocyte Esterase NEGATIVE (NEGATIVE) 01/04/23 04:55 Ur Microscopic Review NOT INDICATED 01/04/23 04:55 Urine Culture Comments NOT INDICATED 01/04/23 04:55 Nasal Adenovirus (PCR) NOT DETECTED 01/04/23 05:03 Nasal B. parapertussis DNA (PCR) NOT DETECTED 01/04/23 05:03 Nasal Coronavir 229E PCR NOT DETECTED 01/04/23 05:03 Nasal Coronavir HKU1 PCR NOT DETECTED 01/04/23 05:03 Nasal Coronavir NL63 PCR NOT DETECTED 01/04/23 05:03 Nasal Coronavir OC43 PCR NOT DETECTED 01/04/23 05:03 Nasal Enterovir/Rhinovir PCR NOT DETECTED 01/04/23 05:03 Nasal Influenza B PCR NOT DETECTED 01/04/23 05:03 Nasal Influenza A PCR NOT DETECTED 01/04/23 05:03 Nasal Parainfluen 1 PCR NOT DETECTED 01/04/23 05:03 Nasal Parainfluen 2 PCR NOT DETECTED 01/04/23 05:03 Nasal Parainfluen 3 PCR NOT DETECTED 01/04/23 05:03 Nasal Parainfluen 4 PCR NOT DETECTED 01/04/23 05:03 Nasal RSV (PCR) NOT DETECTED 01/04/23 05:03 Nasal B.pertussis DNA PCR NOT DETECTED 01/04/23 05:03 Nasal C.pneumoniae (PCR) NOT DETECTED 01/04/23 05:03 Gt Human Metapneumo PCR NOT DETECTED 01/04/23 05:03 Nasal M.pneumoniae (PCR) NOT DETECTED 01/04/23 05:03 Nasal SARS-CoV-2 (PCR) NOT DETECTED 01/04/23 05:03 Last Dose Date 01/06/23 01/07/23 05:40 Last Dose Time 232501/07/23 05:40 Vancomycin Trough 17.4 ug/mL (10.0-20.0) 01/07/23 05:40 Sepsis Event Note (H) - Evaluation Current Stage of Sepsis: Sepsis Possible source of Sepsis: positive: Pulmonary - Sepsis Criteria Sepsis Criteria: Recorded Heart Rate greater than 90 bpm, Recorded Respiratory Rate greater than 20, Respiratory: Increasing oxygen requirements, WBC count greater than 12,000 or less than 4000 ABX Reporting Has patient been on IV antibiotics over the past 48 hours?: Yes Current Medications - Current Medications Current Medications: Active Medications Generic Name Dose Route Start Last Admin Trade Name Freq PRN Reason Stop Dose Admin Acetaminophen 650 mg 01/04/23 08:20 Acetaminophen 325 Mg Tablet PO Q4HR PRN Pain 1 to 4, or Fever Albuterol 2.5 mg 01/04/23 19:00 01/09/23 07:30 Albuterol Neb 2.5 Mg/3 Ml INH 2.5 mg RTTID LILLIE Administration Lipase/Protease/Amylase 3 cap 01/08/23 08:00 01/09/23 16:35 Lipase/Protease/Amylase Capsule PO 3 cap TIDWM LILLIE Administration Calcium Carbonate/Glycine 500 mg 01/05/23 09:00 01/09/23 08:24 Calcium Carb (Oyster Shell) 500 Mg Tablet PO 500 mg DAILY LILLIE Administration Cholecalciferol 5,000 unit 01/08/23 10:00 01/09/23 08:24 Cholecalciferol 5,000 Unit Capsule PO 5,000 unit DAILY [facility] Administration Enoxaparin Sodium 40 mg 01/04/23 09:00 01/09/23 10:49 Enoxaparin 40 Mg/0.4 Ml Syringe SUBQ Not Given DAILY [facility] Meropenem 1 gm/ Sodium 100 mls @ 200 mls/hr 01/04/23 16:00 01/09/23 17:07 Chloride IV Infused Q8H [facility] Infusion Sodium Chloride 1,000 mls @ 0 mls/hr 01/06/23 19:16 Normal Saline 0.9% IV .Q0M [facility] TKO Ibuprofen 200 mg 01/04/23 14:23 01/05/23 00:04 Ibuprofen 400 Mg Tablet PO 200 mg Q6HR PRN Administration Moderate Pain (Level 4-6) Loratadine 10 mg 01/05/23 09:00 01/09/23 08:24 Loratadine 10 Mg Tablet PO 10 mg DAILY LILLIE Administration Ondansetron HCl 4 mg 01/04/23 08:20 Ondansetron 4 Mg/2 Ml Vial IVP Q6HR PRN Nausea / Vomiting Guaifenesin 400mg 1 each 01/06/23 19:46 01/08/23 10:38 Tab PO 1 each Q4H PRN Administration COUGHING Multivit/Folic Acid/Iron 1 tab 01/05/23 08:00 01/09/23 08:24 Vitamin Tablet PO 1 tab DAILYWM LILLIE Administration Saccharomyces Boulardii 250 mg 01/04/23 17:00 01/09/23 16:35 Saccharomyces Boulardii 250 Mg Capsule PO 250 mg BIDWM LILLIE Administration Sodium Chloride 10 ml 01/04/23 08:20 Sodium Chloride Flush 0.9% 10 Ml Syringe IVP PRN PRN NEEDED PER PROVIDER ORDERS Sodium Chloride 10 ml 01/04/23 09:00 01/09/23 16:26 Sodium Chloride Flush 0.9% 10 Ml Syringe IVP Not Given 0100,0900,1700 LILLIE Sodium Chloride 3 ml 01/05/23 21:00 01/09/23 11:26 Sodium Chloride Inhalation 3 Ml Neb INH Not Given BID LILLIE Zolpidem Tartrate 5 mg 01/04/23 08:20 Zolpidem 5 Mg Tablet PO QPM PRN Insomnia Calcium Carbonate [Calcium] 1 tab PO DAILY 01/04/23 Cholecalciferol [Vitamin D3] 1 tab PO DAILY 01/04/23 Glucosamine Sulfate 1 tab PO DAILY 01/04/23 Ibuprofen 1 tab PO DAILY PRN 01/04/23 Loratadine [All Day Allergy Relief] 1 tab PO DAILY 01/04/23 guaiFENesin [Chest Congestion Relief] 1 tab PO DAILY PRN 01/06/23
[2023-01-10 05:33] LABS: HCT - HEMATOCRIT 42.6 % (37.0-47.0); HGB - HEMOGLOBIN 12.7 g/dL (12.0-16.0); MEAN CORPUSCULAR HEMOGLOBIN 26.3 pg (27.0-31.0); MEAN CORPUSCULAR HGB CONC 29.8 g/dL (32.0-36.0); MEAN CORPUSCULAR VOLUME 88.4 fL (81.0-99.0); MEAN PLATELET VOLUME 9.8 fL (7.9-10.8); RED BLOOD COUNT 4.82 10^6/uL (4.20-5.40); RED CELL DISTRIBUTION WIDTH 13.5 % (12.0-15.0); WHITE BLOOD COUNT 16.2 x10^3/uL (4.8-10.8)
[2023-01-10] MEDS: SODIUM CHLORIDE INHALATION 3 ML NEB INH SCH ×2 (07:58→21:41)
[2023-01-10] MEDS: ALBUTEROL NEB 2.5 MG/3 ML INH SCH ×3 (07:58→21:41)
[2023-01-10] MEDS: LIPASE/PROTEASE/AMYLASE CAPSULE PO SCH ×2 (08:05→11:50)
[2023-01-10] MEDS: SODIUM CHLORIDE FLUSH 0.9% 10 ML SYRINGE IVP SCH ×3 (08:05→23:44)
[2023-01-10] MEDS: MEROPENEM 1 GM in SODIUM CHLORIDE 0.9% MINIBAG 100 ML IV SCH ×2 (08:05→16:35)
[2023-01-10] MEDS: PRENATAL VITAMIN TABLET PO SCH (08:05)
[2023-01-10] MEDS: SACCHAROMYCES BOULARDII 250 MG CAPSULE PO SCH ×2 (08:05→17:05)
[2023-01-10] MEDS: CHOLECALCIFEROL 5,000 UNIT CAPSULE PO SCH (09:10)
[2023-01-10] MEDS: LORATADINE 10 MG TABLET PO SCH (09:10)
[2023-01-10] MEDS: ENOXAPARIN 40 MG/0.4 ML SYRINGE SUBQ SCH (09:10)
[2023-01-10] MEDS: CALCIUM CARB (OYSTER SHELL) 500 MG TABLET PO SCH (09:10)
--- NOTE | 2023-01-10 17:39 | PROVIDER PROGRESS NOTE ---
Assessment/Plan - Problem List (1) Pneumonia Qualifiers: Pneumonia type: due to unspecified organism Laterality: bilateral Lung location: unspecified part of lung Qualified Code(s): J18.9 - Pneumonia, unspecified organism Assessment/Plan: Patient with cystic fibrosis now with acute respiratory failure with hypoxia on 0.5 to 1 L oxygen by nasal cannula secondary to pneumonia which itself is likely related to chronic sinusitis Patient subjectively reports improvement Hypoxia is improving however patient had a mild increase in WBC today We will de-escalate antibiotics changing meropenem to oral Levaquin Given patient's high risk status with cystic fibrosis, will check procalcitonin in the a.m. and repeat CBC and if reassuring will plan for discharge tomorrow (2) Cystic fibrosis Assessment/Plan: Continue supportive care, oxygen as needed, outpatient referral to pulmonology already in arrangement - Current Meds Current Meds: Current Medications Generic Name Dose Route Start Last Admin Trade Name Freq PRN Reason Stop Dose Admin Albuterol 2.5 mg 01/04/23 19:00 01/10/23 13:20 Albuterol Neb 2.5 Mg/3 Ml INH 2.5 mg RTTID LILLIE Administration Calcium Carbonate/Glycine 500 mg 01/05/23 09:00 01/10/23 09:10 Calcium Carb (Oyster Shell) 500 Mg Tablet PO 500 mg DAILY LILLIE Administration Cholecalciferol 5,000 unit 01/08/23 10:00 01/10/23 09:10 Cholecalciferol 5,000 Unit Capsule PO 5,000 unit DAILY LILLIE Administration Enoxaparin Sodium 40 mg 01/04/23 09:00 01/10/23 09:10 Enoxaparin 40 Mg/0.4 Ml Syringe SUBQ Not Given DAILY [facility] Ibuprofen 200 mg 01/04/23 14:23 01/05/23 00:04 Ibuprofen 400 Mg Tablet PO 200 mg Q6HR PRN Administration Moderate Pain (Level 4-6) Loratadine 10 mg 01/05/23 09:00 01/10/23 09:10 Loratadine 10 Mg Tablet PO 10 mg DAILY LILLIE Administration Guaifenesin 400mg 1 each 01/06/23 19:46 01/08/23 10:38 Tab PO 1 each Q4H PRN Administration COUGHING Multivit/Folic Acid/Iron 1 tab 01/05/23 08:00 01/10/23 08:05 Vitamin Tablet PO 1 tab DAILYWM LILLIE Administration Saccharomyces Boulardii 250 mg 01/04/23 17:00 01/10/23 17:05 Saccharomyces Boulardii 250 Mg Capsule PO 250 mg BIDWM LILLIE Administration Sodium Chloride 10 ml 01/04/23 09:00 01/10/23 08:05 Sodium Chloride Flush 0.9% 10 Ml Syringe IVP 10 ml 0100,0900,1700 LILLIE Administration Sodium Chloride 3 ml 01/05/23 21:00 01/10/23 07:58 Sodium Chloride Inhalation 3 Ml Neb INH 3 ml BID LILLIE Administration - Lab Result Fish Bone Diagrams: 01/10/23 05:18 01/07/23 05:40 - Additional Planning My Orders: My Active Orders 01/10/23 18:00 Simethicone [Mylicon] 80 mg PO 0900,1300,1800,2100 levoFLOXacin [Levaquin] 750 mg PO DAILY@1200 01/11/23 05:00 CBC W/O DIFF (HEMOGRAM) [HEME] DAILYLAB 01/11/23 09:00 PROCALCITONIN [IAI] DAILY 01/12/23 05:00 CBC W/O DIFF (HEMOGRAM) [HEME] DAILYLAB Subjective - Subjective Patient Reports: Feeling Better Objective Vital Signs: Vital Signs - 24 hr 01/09/23 01/09/23 01/09/23 19:10 20:10 23:35 Temperature 36.7 C 36.4 C L Heart Rate 103 H Heart Rate [ 96 90 Brachial] Heart Rate [ Monitoring electrodes] Respiratory 18 16 20 Rate Blood Pressure 106/63 101/67 [Right Brachial artery] O2 Saturation 95 96 If not protocol 3 1 1 : Oxygen Flow, liters/minute 01/10/23 01/10/23 01/10/23 05:09 07:50 07:59 Temperature 36.6 C 36.4 C L Heart Rate 90 Heart Rate [ 83 Brachial] Heart Rate [ 92 Monitoring electrodes] Respiratory 20 20 16 Rate Blood Pressure 98/60 108/53 L [Right Brachial artery] O2 Saturation 93 94 If not protocol 1 1 1 : Oxygen Flow, liters/minute 01/10/23 01/10/23 01/10/23 13:08 13:11 13:12 Temperature 36.4 C L Heart Rate Heart Rate [ Brachial] Heart Rate [ 89 Monitoring electrodes] Respiratory 16 Rate Blood Pressure [Right Brachial artery] O2 Saturation 95 89 L 93 If not protocol 1 0.5 : Oxygen Flow, liters/minute 01/10/23 01/10/23 01/10/23 13:22 14:00 14:50 Temperature Heart Rate 98 Heart Rate [ Brachial] Heart Rate [ 102 H 129 H Monitoring electrodes] Respiratory 16 Rate Blood Pressure [Right Brachial artery] O2 Saturation If not protocol 0.5 : Oxygen Flow, liters/minute 01/10/23 01/10/23 01/10/23 14:51 14:57 15:15 Temperature 36.6 C Heart Rate Heart Rate [ 100 Brachial] Heart Rate [ 135 H Monitoring electrodes] Respiratory Rate Blood Pressure 100/55 L [Right Brachial artery] O2 Saturation 91 L 93 If not protocol 0.5 0.5 : Oxygen Flow, liters/minute Oxygen O2 Source Nasal cannula Oxygen Flow Rate 2 I&O (Last 24 Hrs): Intake and Output Totals x24h 01/08/23 01/09/23 01/10/23 23:59 23:59 23:59 Intake Total 1959 2219 1769 Output Total 250 Balance 1959 1969 1768 General: Alert HEENT: Atraumatic Neuro: Alert, Oriented Times 3 Cardiovascular: Regular rate, Normal S1, Normal S2 Respiratory: Chest non-tender Abdomen: Normal bowel sounds - Results Results: Laboratory Results WBC 16.2 x10^3/uL (4.8-10.8) H 01/10/23 05:18 RBC 4.82 10^6/uL (4.20-5.40) 01/10/23 05:18 Hgb 12.7 g/dL (12.0-16.0) 01/10/23 05:18 Hct 42.6 % (37.0-47.0) 01/10/23 05:18 MCV 88.4 fL (81.0-99.0) 01/10/23 05:18 MCH 26.3 pg (27.0-31.0) L 01/10/23 05:18 MCHC 29.8 g/dL (32.0-36.0) L 01/10/23 05:18 RDW 13.5 % (12.0-15.0) 01/10/23 05:18 Plt Count 355 10^3/uL (130-450) 01/10/23 05:18 MPV 9.8 fL (7.9-10.8) 01/10/23 05:18 Neut # (Auto) 10.9 10^3/uL (1.5-6.6) H 01/08/23 04:40 Lymph # (Auto) 2.4 10^3/uL (1.5-3.5) 01/08/23 04:40 Karnes # (Auto) 1.2 10^3/uL (0.0-1.0) H 01/08/23 04:40 Eos # (Auto) 0.2 10^3/uL (0.0-0.7) 01/08/23 04:40 Baso # (Auto) 0.1 10^3/uL (0.0-0.1) 01/08/23 04:40 Absolute Nucleated RBC 0.00 x10^3/uL 01/08/23 04:40 Total Counted 100 01/06/23 05:51 Band Neuts % (Manual) 0 % (0-10) 01/06/23 05:51 Reactive Lymphs % (Man) 5 % 01/05/23 04:38 Abnorm Lymph % (Manual) 0 % 01/06/23 05:51 Nucleated RBC % 0.0 /100WBC 01/08/23 04:40 Neutrophils # (Manual) 17.1 10^3/uL (1.5-6.6) H 01/06/23 05:51 Lymphocytes # (Manual) 2.0 10^3/uL (1.5-3.5) 01/06/23 05:51 Monocytes # (Manual) 1.2 10^3/uL (0.0-1.0) H 01/06/23 05:51 Eosinophils # (Manual) 0.0 10^3/uL (0-0.7) 01/06/23 05:51 Basophils # (Manual) 0.0 10^3/uL (0-0.1) 01/06/23 05:51 Differential Comment MANUAL DIFFERENTIAL 01/06/23 05:51 WBC Morphology NORMAL APPEARANCE (NORMAL) 01/06/23 05:51 Platelet Estimate NORMAL (130-450,000) (NORMAL) 01/06/23 05:51 Platelet Morphology NORMAL APPEARANCE (NORMAL) 01/06/23 05:51 RBC Morph Micro Appear NORMAL APPEARANCE (NORMAL) 01/06/23 05:51 Sodium 138 mmol/L (135-145) 01/07/23 05:40 Potassium 4.6 mmol/L (3.5-5.0) 01/07/23 05:40 Chloride 96 mmol/L (101-111) L 01/07/23 05:40 Carbon Dioxide 35 mmol/L (21-32) H 01/07/23 05:40 Anion Gap 7.0 (6-13) 01/07/23 05:40 BUN 9 mg/dL (6-20) 01/07/23 05:40 Creatinine 0.4 mg/dL (0.4-1.0) 01/07/23 05:40 Estimated GFR (MDRD) 181 (>89) 01/07/23 05:40 Glucose 96 mg/dL (70-100) 01/07/23 05:40 Estimat Average Glucose 126 mg/dL (70-100) H 01/05/23 04:38 Hemoglobin A1c % 6.0 % (4.27-6.07) 01/05/23 04:38 Lactic Acid 1.4 mmol/L (0.5-2.2) 01/04/23 04:23 Calcium 8.4 mg/dL (8.5-10.3) L 01/07/23 05:40 Phosphorus 3.8 mg/dL (2.5-4.6) 01/05/23 04:38 Magnesium 1.8 mg/dL (1.7-2.8) 01/07/23 05:40 Total Bilirubin 0.4 mg/dL (0.2-1.0) 01/04/23 04:23 AST 24 IU/L (10-42) 01/04/23 04:23 ALT 26 IU/L (10-60) 01/04/23 04:23 Alkaline Phosphatase 67 IU/L (42-121) 01/04/23 04:23 Troponin I High Sens 22.9 ng/L (2.3-14.8) H* 01/04/23 06:11 B-Natriuretic Peptide 36 pg/mL (5-100) 01/06/23 05:51 Total Protein 6.8 g/dL (6.7-8.2) 01/04/23 04:23 Albumin 3.3 g/dL (3.2-5.5) 01/04/23 04:23 Globulin 3.5 g/dL (2.1-4.2) 01/04/23 04:23 Albumin/Globulin Ratio 0.9 (1.0-2.2) L 01/04/23 04:23 Lipase 22 U/L (22-51) 01/04/23 04:23 Vitamin D 25-Hydroxy 22.7 ng/mL (30.0-100.0) L 01/06/23 15:31 Urine Color YELLOW 01/04/23 04:55 Urine Clarity CLEAR (CLEAR) 01/04/23 04:55 Urine pH 6.0 PH (5.0-7.5) 01/04/23 04:55 Ur Specific [place] <=1.005 (1.002-1.030) 01/04/23 04:55 Urine Protein NEGATIVE mg/dL (NEGATIVE) 01/04/23 04:55 Urine Glucose (UA) NEGATIVE mg/dL (NEGATIVE) 01/04/23 04:55 Urine Ketones NEGATIVE mg/dL (NEGATIVE) 01/04/23 04:55 Urine Occult Blood TRACE-INTA (NEGATIVE) 01/04/23 04:55 Urine Nitrite NEGATIVE (NEGATIVE) 01/04/23 04:55 Urine Bilirubin NEGATIVE (NEGATIVE) 01/04/23 04:55 Urine Urobilinogen 0.2 (NORMAL) E.U./dL (NORMAL) 01/04/23 04:55 Ur Leukocyte Esterase NEGATIVE (NEGATIVE) 01/04/23 04:55 Ur Microscopic Review NOT INDICATED 01/04/23 04:55 Urine Culture Comments NOT INDICATED 01/04/23 04:55 Nasal Adenovirus (PCR) NOT DETECTED 01/04/23 05:03 Nasal B. parapertussis DNA (PCR) NOT DETECTED 01/04/23 05:03 Nasal Coronavir 229E PCR NOT DETECTED 01/04/23 05:03 Nasal Coronavir HKU1 PCR NOT DETECTED 01/04/23 05:03 Nasal Coronavir NL63 PCR NOT DETECTED 01/04/23 05:03 Nasal Coronavir OC43 PCR NOT DETECTED 01/04/23 05:03 Nasal Enterovir/Rhinovir PCR NOT DETECTED 01/04/23 05:03 Nasal Influenza B PCR NOT DETECTED 01/04/23 05:03 Nasal Influenza A PCR NOT DETECTED 01/04/23 05:03 Nasal Parainfluen 1 PCR NOT DETECTED 01/04/23 05:03 Nasal Parainfluen 2 PCR NOT DETECTED 01/04/23 05:03 Nasal Parainfluen 3 PCR NOT DETECTED 01/04/23 05:03 Nasal Parainfluen 4 PCR NOT DETECTED 01/04/23 05:03 Nasal RSV (PCR) NOT DETECTED 01/04/23 05:03 Nasal B.pertussis DNA PCR NOT DETECTED 01/04/23 05:03 Nasal C.pneumoniae (PCR) NOT DETECTED 01/04/23 05:03 Gt Human Metapneumo PCR NOT DETECTED 01/04/23 05:03 Nasal M.pneumoniae (PCR) NOT DETECTED 01/04/23 05:03 Nasal SARS-CoV-2 (PCR) NOT DETECTED 01/04/23 05:03 Last Dose Date 01/06/23 01/07/23 05:40 Last Dose Time 232501/07/23 05:40 Vancomycin Trough 17.4 ug/mL (10.0-20.0) 01/07/23 05:40 Sepsis Event Note (H) - Evaluation Current Stage of Sepsis: Sepsis Possible source of Sepsis: positive: Pulmonary - Sepsis Criteria Sepsis Criteria: Recorded Heart Rate greater than 90 bpm, Recorded Respiratory Rate greater than 20, Respiratory: Increasing oxygen requirements, WBC count greater than 12,000 or less than 4000 ABX Reporting Has patient been on IV antibiotics over the past 48 hours?: No Current Medications - Current Medications Current Medications: Active Medications Generic Name Dose Route Start Last Admin Trade Name Freq PRN Reason Stop Dose Admin Acetaminophen 650 mg 01/04/23 08:20 Acetaminophen 325 Mg Tablet PO Q4HR PRN Pain 1 to 4, or Fever Albuterol 2.5 mg 01/04/23 19:00 01/10/23 13:20 Albuterol Neb 2.5 Mg/3 Ml INH 2.5 mg RTTID LILLIE Administration Calcium Carbonate/Glycine 500 mg 01/05/23 09:00 01/10/23 09:10 Calcium Carb (Oyster Shell) 500 Mg Tablet PO 500 mg DAILY LILLIE Administration Cholecalciferol 5,000 unit 01/08/23 10:00 01/10/23 09:10 Cholecalciferol 5,000 Unit Capsule PO 5,000 unit DAILY LILLIE Administration Enoxaparin Sodium 40 mg 01/04/23 09:00 01/10/23 09:10 Enoxaparin 40 Mg/0.4 Ml Syringe SUBQ Not Given DAILY [facility] Sodium Chloride 1,000 mls @ 0 mls/hr 01/06/23 19:16 Normal Saline 0.9% IV .Q0M [facility] TKO Ibuprofen 200 mg 01/04/23 14:23 01/05/23 00:04 Ibuprofen 400 Mg Tablet PO 200 mg Q6HR PRN Administration Moderate Pain (Level 4-6) Levofloxacin 750 mg 01/10/23 18:00 Levofloxacin 250 Mg Tablet PO DAILY@1200 [facility] Loratadine 10 mg 01/05/23 09:00 01/10/23 09:10 Loratadine 10 Mg Tablet PO 10 mg DAILY LILLIE Administration Ondansetron HCl 4 mg 01/04/23 08:20 Ondansetron 4 Mg/2 Ml Vial IVP Q6HR PRN Nausea / Vomiting Guaifenesin 400mg 1 each 01/06/23 19:46 01/08/23 10:38 Tab PO 1 each Q4H PRN Administration COUGHING Multivit/Folic Acid/Iron 1 tab 01/05/23 08:00 01/10/23 08:05 Vitamin Tablet PO 1 tab DAILYWM [facility] Administration Saccharomyces Boulardii 250 mg 01/04/23 17:00 01/10/23 17:05 Saccharomyces Boulardii 250 Mg Capsule PO 250 mg BIDWM LILLIE Administration Simethicone 80 mg 01/10/23 18:00 Simethicone Chew 80 Mg Tablet PO 0900,1300,1800,2100 [facility] Sodium Chloride 10 ml 01/04/23 08:20 Sodium Chloride Flush 0.9% 10 Ml Syringe IVP PRN PRN NEEDED PER PROVIDER ORDERS Sodium Chloride 10 ml 01/04/23 09:00 01/10/23 08:05 Sodium Chloride Flush 0.9% 10 Ml Syringe IVP 10 ml 0100,0900,1700 LILLIE Administration Sodium Chloride 3 ml 01/05/23 21:00 01/10/23 07:58 Sodium Chloride Inhalation 3 Ml Neb INH 3 ml BID LILLIE Administration Zolpidem Tartrate 5 mg 01/04/23 08:20 Zolpidem 5 Mg Tablet PO QPM PRN Insomnia Calcium Carbonate [Calcium] 1 tab PO DAILY 01/04/23 Cholecalciferol [Vitamin D3] 1 tab PO DAILY 01/04/23 Glucosamine Sulfate 1 tab PO DAILY 01/04/23 Ibuprofen 1 tab PO DAILY PRN 01/04/23 Loratadine [All Day Allergy Relief] 1 tab PO DAILY 01/04/23 guaiFENesin [Chest Congestion Relief] 1 tab PO DAILY PRN 01/06/23
[2023-01-10] MEDS: SIMETHICONE CHEW 80 MG TABLET PO SCH ×2 (18:03→20:40)
[2023-01-10] MEDS: levoFLOXacin 250 MG TABLET PO SCH (18:03)
[2023-01-11 05:29] LABS: HCT - HEMATOCRIT 43.3 % (37.0-47.0); MEAN CORPUSCULAR HEMOGLOBIN 26.4 pg (27.0-31.0); MEAN PLATELET VOLUME 9.6 fL (7.9-10.8); RED BLOOD COUNT 4.92 10^6/uL (4.20-5.40); RED CELL DISTRIBUTION WIDTH 13.6 % (12.0-15.0); WHITE BLOOD COUNT 12.6 x10^3/uL (4.8-10.8)
[2023-01-11] MEDS: ALBUTEROL NEB 2.5 MG/3 ML INH SCH ×2 (07:32→13:22)
[2023-01-11] MEDS ORDERED: CALCIUM CARBONATE CHEW 500 MG TABLET PO PRN (08:05)
[2023-01-11] MEDS: SIMETHICONE CHEW 80 MG TABLET PO SCH ×2 (08:21→12:28)
[2023-01-11] MEDS: LORATADINE 10 MG TABLET PO SCH (08:21)
[2023-01-11] MEDS: CALCIUM CARB (OYSTER SHELL) 500 MG TABLET PO SCH (08:22)
[2023-01-11] MEDS: ENOXAPARIN 40 MG/0.4 ML SYRINGE SUBQ SCH (08:22)
[2023-01-11] MEDS: CHOLECALCIFEROL 5,000 UNIT CAPSULE PO SCH (08:22)
[2023-01-11] MEDS: SACCHAROMYCES BOULARDII 250 MG CAPSULE PO SCH (08:22)
[2023-01-11] MEDS: PRENATAL VITAMIN TABLET PO SCH (08:22)
[2023-01-11] MEDS: SODIUM CHLORIDE FLUSH 0.9% 10 ML SYRINGE IVP SCH (08:23)
[2023-01-11] MEDS ORDERED: CALCIUM CARBONATE CHEW 500 MG TABLET PO SCH (09:00)
--- NOTE | 2023-01-11 10:43 | Discharge Plan ---
Discharge Plan Problem Reviewed?: Yes Disposition: Home, Self Care Condition: Stable Prescriptions: levoFLOXacin [Levaquin] 750 mg PO DAILY@1200 4 Days #4 tab Lipase/Protease/Amylase [Brandee Chamorro 16,800 Unit Cap] 1 each PO TIDWM #90 cap Diet: Regular Activity Restrictions: No Restrictions Health Concerns: You were diagnosed with pneumonia on admission to the hospital. You were treated with antibiotics initially using IV, then transitioning to oral antibiotics and your lab work and oxygen levels have both improved during this time. You will be discharged with 4 additional days of oral Levaquin, and antibiotics to continue to eradicate the infection. In addition, I am sending a prescription for pancreatic enzymes. The dose may need to be adjusted as you determine how you respond and I would encourage you to schedule a visit with your PCP as well as your new knife setter once available. No Smoking: If you smoke, Please STOP! Call for help.
[2023-01-11] MEDS: SODIUM CHLORIDE INHALATION 3 ML NEB INH SCH (11:49)
[2023-01-11] MEDS: levoFLOXacin 250 MG TABLET PO SCH (11:51)
[2023-01-11 12:05] VITALS: BP 97/61
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
== END 2023-01-11 13:45 | disposition home or self-care (01) | DRG 871 ==
LOC: ED 03:42 → MS2 08:20
PROVIDERS: ADMIT Internal Medicine; ATTEND Family Medicine Sports Medicine
DX: A41.52 Sepsis due to Pseudomonas (principal); J18.9 Pneumonia, unspecified organism; J96.01 Acute respiratory failure with hypoxia; E84.9 Cystic fibrosis, unspecified; J32.9 Chronic sinusitis, unspecified; Z86.14 Personal history of Methicillin resistant Staphylococcus aureus infection; I95.9 Hypotension, unspecified; Z20.822 Contact with and (suspected) exposure to COVID-19; R73.9 Hyperglycemia, unspecified
CPT/HCPCS: 36415; 70486; 71045; 80048; 80053; 80202; 81003; 82306; 83036; 83605; 83690; 83735; 83880; 84100; 84145; 84484; 85025; 85027; 87040; 87070; 87077; 87181; 87205; 87633; 93005; 93306; 94640; 94667; 94668; 96365; 99285; A9270; J1650; J2185; J3370; J7512; 81001; 87086

== ENCOUNTER 2024-05-28 14:11 | Outpatient (CLI) | payer OTHER ==
--- NOTE | 2024-06-01 12:26 | DEXA Report ---
PROCEDURE: Dexa Spine and/or Hip INDICATIONS: CYSTIC FIBROSIS TECHNIQUE: Dual energy x-ray absorptiometry (DEXA) was performed in the regions detailed below. COMPARISON: None. FINDINGS: Lumbar Spine: Bone Mineral Density 0.668 g/cm/cm,T score -4.3. Osteoporosis Left Femoral Neck: Bone Mineral Density 0.642 g/cm/cm, T score -2.8. Osteoporosis Left Total Hip: Bone Mineral Density 0.673 g/cm/cm,T score -2.7. Osteoporosis (T score greater or equal to -1.0: NORMAL) (T score from -1.1 to -2.4: OSTEOPENIA) (T score less than or equal to -2.5 to: OSTEOPOROSIS) IMPRESSION: Osteoporosis Patients with diagnosis of osteoporosis or osteopenia should have regular bone mineral density assess ment. For those eligible for Medicare, routine testing is allowed once every 2 years. Testing frequ ency can be increased for patients who have rapidly progressing disease or for those who are receivin g medical therapy to restore bone mass. Reviewed by: Jack Card MD on 06/01/2024 11:24 AM [facility] Approved by: Jack Card MD on 06/01/2024 11:24 AM [facility] Station ID: [id number]
== END 2024-05-28 14:12 | disposition home or self-care (01) ==
LOC: DI 14:11
PROVIDERS: ATTEND Internal Medicine Pulmonary Disease
DX: M81.0 Age-related osteoporosis without current pathological fracture (principal)